=== PATIENT | female | born 1935 | race Caucasian/White ===

== ENCOUNTER 2016-02-16 09:26 | Inpatient (IN) | payer MEDICARE, OTHER ==
[~2016-02-16] VITALS: Ht 162.6 cm; Wt 64.4 kg
[~2016-02-16 09:26] MED LIST: ASPI81TA85 PO; BIOT50004 PO; FISH1000 PO; IBUP600T26 PO; MULT1TAB10 PO; OMEP20CA3 PO; PROBCAP4 PO; SPIR12.9 INH; VITATAB21 PO
[2016-02-16 10:42] LABS: BASO # 0.1 K/mm3 (0.0-0.2); BASO % 0.3 % (0.0-1.0); EOS # 0.1 K/mm3 (0.0-0.50); EOS % 0.5 % (0.0-3.0); LARGE UNSTAINED CELL # 0.1 K/mm3 (0.0-0.4); LARGE UNSTAINED CELL % 0.6 % (0.0-4.0); LYMPH # 0.7 K/mm3 (1.5-4.5); LYMPH % 2.6 % (24.0-44.0); MEAN CORPUSCULAR HGB CONC 33.1 g/dl (32.0-36.5); MEAN CORPUSCULAR VOLUME 93.6 fl (80.0-96.0); MONO # 1.1 K/mm3 (0.0-0.8); MONO % 5.3 % (0.0-5.0); NEUTROPHILS # 19.1 K/mm3 (1.8-7.7); NEUTROPHILS % 90.6 % (36.0-66.0); PLATELET COUNT, AUTOMATED 278 k/mm3 (150-450); RED CELL DISTRIBUTION WIDTH 13.1 % (11.5-14.5); WHITE BLOOD COUNT 21.1 K/mm3 (4.0-10.0)
[2016-02-16 10:57] LABS: ANION GAP 10 MEQ/L (8-16); BLOOD UREA NITROGEN 7 MG/DL (7-18); CALCIUM LEVEL 8.6 MG/DL (8.8-10.2); CARBON DIOXIDE LEVEL 25 MEQ/L (21-32); CHLORIDE LEVEL 105 MEQ/L (98-107); GLOMERULAR FILTRATION RATE > 60.0 (>39); GLUCOSE, FASTING 90 MG/DL (83-110); POTASSIUM SERUM 3.3 MEQ/L (3.5-5.1); SODIUM LEVEL 140 MEQ/L (136-145)
[2016-02-16] MEDS ORDERED: POTASSIUM CHLORIDE 10 MEQ SR TABLET As Ordered ONE (13:27)
[2016-02-16] MEDS ORDERED: IPRATROPIUM 0.5MG/ALBUTEROL 2.5MG INH SOL UD 3ML (DUONEB)(J7620) NEB PRN (16:30)
[2016-02-16] MEDS ORDERED: D5W/0.45% SODIUM CHLORIDE 1,000 ML IV SCH (16:30)
[2016-02-16] MEDS ORDERED: ACETAMINOPHEN TAB 650MG DOSE (2X325MG) PO PRN (16:30)
[2016-02-16] MEDS ORDERED: ONDANSETRON 4MG/2ML VIAL (J2405) IV PRN (16:30)
[2016-02-16] MEDS ORDERED: MORPHINE 2 MG/ML 1ML SYRINGE IV PRN (16:30)
[2016-02-16] MEDS ORDERED: ACETAMINOPHEN 650 MG SUPP PR PRN (16:30)
[2016-02-16] MEDS ORDERED: KCL 20MEQ IN D5/0.45NS 1000ML 1,000 ML IV SCH (16:45)
[2016-02-16 16:59] LABS: ALBUMIN 3.2 GM/DL (3.2-5.2); ALBUMIN/GLOBULIN RATIO 1.03 (1.00-1.93); ALKALINE PHOSPHATASE 55 U/L (45-117); ALT/SGPT 16 U/L (12-78); AST/SGOT 12 U/L (15-37); BILIRUBIN,DIRECT 0.1 MG/DL (0.0-0.2); BILIRUBIN,TOTAL 0.4 MG/DL (0.2-1.0); TOTAL PROTEIN 6.3 GM/DL (6.4-8.2)
--- NOTE | 2016-02-16 17:28 | HPE ---
DATE OF ADMISSION: 02/16/2016 TIME PATIENT WAS SEEN: 1500 hours. PRIMARY CARE PROVIDER: Dr. Howell. CHIEF COMPLAINT: Diarrhea and abdominal pain. HISTORY OF THE PRESENT ILLNESS: A 80-year-old female with a past medical history of diverticulitis, chronic obstructive pulmonary disease (COPD), emphysema, hiatal hernia and multiple drug allergies, presented with abdominal pain and diarrhea, started 3 days ago. Per patient, she was initially on Cefir for a sinus infection about 20 days ago; however, 6 days into the antibiotic, the patient developed diarrhea about six times a day, and she was diagnosed with Clostridium difficile (C diff) colitis and, therefore, was placed on Flagyl for the next 10 days. The patient's Flagyl was stopped early due to patient has metallic taste in the mouth, and it was stopped roughly 4 days ago. About 2 days after Flagyl was stopped, the diarrhea came back and it was worse than before. Per patient, whatever she eats or drinks, would come out immediately and she has nausea but no vomiting and there was no blood in the stool. In addition, she also has lower abdominal pain, which was sharp and dull and she rated it as a 6/10 at times and it comes and goes. Currently, the pain is only 0/10. The patient also admits to chills. Denies any recent traveling or sick contact. Denies any chest pain, trouble breathing, any problem with urination. ALLERGIES: The patient has multiple allergies including ERYTHROMYCIN which gives her hives and tongue swelling and itching, NITRATE gives her hives, swelling and itching, NITROFURANTOIN gives her hives, itching and swelling and also PENICILLIN gives her hives, itching and swelling, PENICILLIN CROSS REACTORS - also hives, itching and swelling, SULFA DRUGS gives her hives, CIPROFLOXACIN gives her hives. Currently, the patient would like to add Cefir to her side effect list. However, her reaction was diarrhea which was more likely to be secondary to Clostridium difficile. HOME MEDICATIONS: - aspirin 81 mg one tablet by mouth daily - Biotin 5000 mcg one tablet by mouth daily - fish oil 1000 mg one tablet by mouth daily - ibuprofen 600 mg one tablet by mouth every 8 hours as needed - probiotic one tablet by mouth daily - multivitamin one tablet by mouth daily - omeprazole 20 mg one tablet by mouth daily - Spiriva two inhalations daily - vitamin C plus one tablet by mouth daily PAST MEDICAL HISTORY: 1. Diverticulitis, diverticulosis. 2. Chronic obstructive pulmonary disease (COPD), emphysema. 3. Hiatal hernia. 4. Chronic pain. 5. Vitamin deficiency. PAST SURGICAL HISTORY: 1. Right-sided hip arthroplasty. 2. Cholecystectomy. 3. Cataract. 4. Dilatation and curettage (D and C). SOCIAL HISTORY: The patient lives at home alone, and she exercises regularly, does not smoke, drink or use any drugs. FAMILY HISTORY: The patient's brother had prostate cancer and also from heart disease. REVIEW OF SYSTEMS: GENERAL: The patient lost 5 pounds over 2 days due to diarrhea. Denies any sick contact or any recent traveling. Admits to chills. Denies any fever. HEENT: Denies any changes with vision, smell, hearing or taste. Denies any trouble swallowing or any cough. CARDIOVASCULAR: Denies any chest pain, trouble breathing. LUNGS: The patient does have COPD and denies any trouble breathing currently. GASTROINTESTINAL: Denies any vomiting. Admits to nausea and abdominal pain. Admits to diarrhea about ten times per day. MUSCULOSKELETAL: Denies any pain anywhere. HEMATOLOGY/ONCOLOGY: Denies any bruising or bleeding anywhere. ENDOCRINE: Admits to chills. Denies any excessive heat. PSYCH: Denies any depression. SKIN: Denies any rash, ulcerations or nodules. NEUROLOGIC: Denies any weakness on any one side of the body. Denies any change in sensation. PHYSICAL EXAMINATION: VITAL SIGNS: Blood pressure 134/71, pulse 82, respirations 18, temperature 99.2. Oxygen was saturating at 99% on room air. Weight was 60 kg. Height was 162 cm. GENERAL: The patient is a thin looking elderly female who was more energetic for her age, alert, awake, oriented times three, does not appear to be in distress, resting comfortably in bed with the head elevated at 30 degrees. HEENT: Normocephalic, atraumatic. Extraocular motor intact. Mucosa moist. NECK: Supple. No neck lymphadenopathy. CARDIOVASCULAR: Regular rate and rhythm. S1, S2. No murmurs, rubs or gallops. LUNGS: Clear to auscultation bilaterally. No wheezing, rales, or rhonchi. ABDOMEN: Positive bowel sounds, soft, nontender, nondistended. No peritoneal signs. No ecchymosis. EXTREMITIES: No edema, clubbing or cyanosis. SKIN: Warm and dry. NEUROLOGICAL: Cranial nerves II-XII intact. No focal neurologic deficit. LABORATORY DATA: WBC 21.1, hemoglobin 13.4, hematocrit 40.5 with MCV of 93.6 and platelet count of 278. Sodium 140, potassium 3.3, low, chloride 105, bicarbonate 25, BUN 7, creatinine 0.7, GFR greater than 60, fasting glucose was 90 and lactic acid 0.7, calcium was 8.6. Liver panel is currently pending. Magnesium level is pending. Blood culture pending . ASSESSMENT AND PLAN: A 80-year-old female with a past medical history of diverticulitis, chronic obstructive pulmonary disease (COPD), emphysema, hiatal hernia, chronic pain with multivitamin deficiency and multiple drug allergies, presented with: 1. Severe diarrhea, likely secondary to Clostridium difficile colitis. The patient's GI panel is positive for Clostridium difficile A and B. The patient also has leukocytosis with WBC of 21.1 and she has been having diarrhea about 10 times per day. The patient has been started on oral vancomycin in the emergency room. Will continue the patient on vancomycin 125 mg by mouth every 6 hours. Will also provide the patient with probiotic. Continue IV fluid with potassium (K) 20 mEq in D5 and a half normal saline at a rate of 60 mL an hour. Also, will place the patient on a clear liquid diet due to patient has no vomiting and only has some nausea. Will continue Zofran and home proton pump inhibitor (PPI) and continue to monitor the patient. 2. Thrush. The patient's tongue does appear to have thrush. Will continue mouthwash. 3. History of diverticulitis. The patient's abdominal exam is benign. Therefore, no imaging needed for now. If, however, serial abdominal exam shows severe pain, the patient may be warranted to have imaging. 4. Chronic obstructive pulmonary disease, emphysema. Continue Spiriva and DuoNebs. 5. Hiatal hernia. Continue home proton pump inhibitor. 6. Deep vein thrombosis (DVT) prophylaxis. On Lovenox 30 mg subcutaneously daily. DISPOSITION: The patient has a relapse from Clostridium difficile colitis. The patient was on Flagyl outpatient; however, she stated that she stopped a few days earlier. In addition, the patient's diarrhea is worsening this time. Will continue oral vancomycin for now. If the patient's symptoms are not well controlled, possibly consider adding Flagyl which did seem to help her several days ago. The patient has been discussed with attending doctor, Dr. Deluna. My preceptor for this patient encounter was Dr. Deluna. The preceptor was physically present in the building during the encounter and was fully available. As needed, all aspects of the patient interview, examination, medical decision making process, and medical care plan development were reviewed and approved by the preceptor. The preceptor is aware and concurs with the plan as stated in the body of this note and will attest to such by his/her co-signature. YUNIOR
[2016-02-16] MEDS: VANCOMYCIN ORAL SOL 250MG/5ML ORAL SYRINGE PO SCH (18:00)
--- NOTE | 2016-02-16 18:36 | EDDOCDS ---
Physician Documentation [facility] Name: Briseyda Gallegos Age: 80 yrs Sex: Female : 1935 Arrival Date: 02/16/2016 Time: 09:26 Bed 10 Private MD: Samuel Howell MD Disposition: 02/15 14:59 I have independently interviewed and examined the patient, and I agree with the sd1 investigation, diagnosis and treatment plan as documented by the Resident. Disposition: 02/16/16 15:11 Hospitalization ordered by Akiko Deluna for Inpatient Admission. Preliminary diagnosis is Enterocolitis due to Clostridium difficile. - Bed requested for 4 [place]. - Status is Inpatient Admission. ml6 - Condition is Stable. - Problem is new. - Symptoms are unchanged. Historical: - Allergies: Ciprofloxacin (night huerta and anxiety); Erythromycin; Macrobid; PENICILLINS; SULFA (SULFONAMIDES); - Home Meds: 1. aspirin 81 mg Oral grps 1 tab once daily (Last dose: 02/14/2016) 2. biotin oral daily (Last dose: 02/14/2016) 3. Fish Oil Oral daily (Last dose: 02/14/2016) 4. Motrin Oral 600 mg as needed 5. multivitamin Oral tab 1 tab daily (Last dose: 02/14/2016) 6. omeprazole 20 mg Oral cpDR 1 cap once daily (Last dose: 02/14/2016) 7. Spiriva with HandiHaler 18 mcg Inhl CpDv 1 cap once daily (Last dose: 02/14/2016) 8. Vitamin C Oral daily (Last dose: 02/14/2016) 9. Probiotic oral daily (Last dose: 02/14/2016) - PMHx: COPD; Emphysema; Hiatal Hernia; Diverticulosis; Diverticulitis; - PSHx: Hip Arthroplasty, Right; Cholecystectomy; Cataract Surgery- Right; D & C; - Social history: Smoking status: Patient states former smoker of tobacco. No barriers to communication noted, The patient speaks fluent Portuguese, Speaks appropriately for age. - Family history: Not pertinent. - : The pt / caregiver states he / she is not on anticoagulants. Home medication list is obtained from the patient, [place] import data. - Exposure Risk Screening:: None identified. Vital Signs: 09:28 BP 134 / 71; Pulse 82; Resp 18; Temp 99.2(O); Pulse Ox 99% on R/A; Weight 60.78 kg / elp 134 lbs (R); Height 5 ft. 4 in. (162.56 cm); Pain 6/10; 18:35 BP 125 / 74; Pulse 77; Resp 16; Temp 98.2(O); Pulse Ox 97% on R/A; Pain 0/10; ml6 09:28 Body Mass Index 23.00 (60.78 kg, 162.56 cm) elp MDM: 10:07 NS 0.9% 1000 ml IV at 250 mL/hr continuous ordered. bs6 10:07 Undress patient appropriately for examination ordered. bs6 10:08 Basic Metabolic Profile Ordered. EDMS 10:08 CBC with Diff Ordered. EDMS 10:09 GASTROINTESTINAL (GI) PANEL Ordered. EDMS 10:16 Financial registration complete. lg 10:22 ED course: 80 yo female presents S/P cefdinir for sinusitis and flagyl for presumed sd1 enteritis resulting from c/o generalized abdominal pain very mild but intermittently increases and associated liquidy stool with every po intake no vomiting exam patient appears well in no distress abdomen soft nontender decreased BS plan check stool, lytes, hydrate consider imaging based on labs ddx: cdiff, gastroenteritits, medication intolerance, diverticulitis. 10:56 [facility] [place] was scanned into varinode and attached to record. lg 11:49 Basic Metabolic Profile Reviewed. sd1 11:49 CBC with Diff Reviewed. sd1 11:50 Stool samples ordered. sd1 11:50 -Blood Culture (Adults Only), peripheral from different site, or from device/port/PICC sd1 etc. if present ordered. 11:51 Lactic Acid (Squires tube on ice) Ordered. EDMS 11:51 -Blood Culture Ordered. EDMS 11:52 -Blood Culture (Adults Only), peripheral from different site, or from device/port/PICC deg etc. if present complete. 11:53 BLOOD CULTURES Ordered. EDMS 13:22 Potassium Chloride Extended Release Tablet 40 mEq PO once ordered. sd1 15:12 vancomycin 125 mg PO once ordered. bs6 15:25 vancomycin 125 mg PO once ordered. ml6 15:40 vancomycin 125 mg PO once ordered. ml6 16:13 Admission / Observation Status ordered. EDMS 16:30 PHYSICAL THERAPY EVAL & TREAT ordered. EDMS 16:30 CLEAR LIQUIDS DIET ordered. EDMS Administered Medications: 10:08 Drug: NS 0.9% 1000 ml [sodium chloride 0.9 % intravenous solution] Route: IV; Rate: 250 ml6 mL/hr; Site: left antecubital; 13:26 Drug: Potassium Chloride 40 mEq [potassium chloride ER 10 mEq tablet,extended release ml6 (4 tabs)] Route: PO; 17:00 Drug: vancomycin 125 mg {Note: delay in medication coming from pharmacy.} Route: PO; ml6 Signatures: Dispatcher [employer] EDMS Mary Kay Gee MD MD sd1 Bbea Coronado, Bilingual Speech Therapist Unit deg Benjamín Nance, Rodney Reg lg Graciela Dawson,RN RN kr3 Marcos Andres, RN RN ml6 Anna Ferrari DO DO bs6 Jerrica Enamorado, JARAD RN lmg The chart was reviewed and I authenticate all verbal orders and agree with the evaluation and treatment provided.Corrections: (The following items were deleted from the chart) 10:09 10:08 GASTROINTESTINAL (GI) PANEL+TIMI ordered. EDMS EDMS 16:30 10:08 NOTHING BY MOUTH+DIET ordered. EDMS EDMS 16:40 16:27 LIVER PROFILE ordered. EDMS EDMS 16:40 16:27 MAGNESIUM LEVEL ordered. EDMS EDMS Attachments: 10:56 [facility] Payment Agreement lg MTDD
--- NOTE | 2016-02-16 18:36 | EDDOCDS ---
Nurse's Notes [facility] [employer] Name: Briseyda Gallegos Age: 80 yrs Sex: Female : 1935 Arrival Date: 02/16/2016 Time: 09:26 Bed 10 Private MD: Samuel Howell MD Diagnosis: Enterocolitis due to Clostridium difficile Presentation: 02/15 09:32 Presenting complaint: Patient states: history of diverticulosis and is having abdominal kr3 pain and inability to eat or drink since Saturday. Reports earlier was on 2 different antibiotics for sinus infection and thinks may have started a problem and than food intake over Jenifer did not help with problem. Adult Sepsis Screening: The patient does not have new or worsening altered mentation. Patient's respiratory rate is less than 22. Systolic blood pressure is greater than 100. Patient has a qSOFA score of 0- Negative Sepsis Screen. Suicide/Homicide risk assessment- the patient denies having any suicidal and/or homicidal ideations and does not present with any other emotional, behavioral or mental health complaints. Status: Patient is not a nutrition services aide or dependent. Transition of care: patient was not received from another setting of care. 09:32 Acuity: LUIS Level 3 kr3 09:32 Method Of Arrival: Walkin/Carried/Asstd kr3 Triage Assessment: 09:38 General: Appears in no apparent distress, comfortable, Behavior is cooperative. Pain: kr3 Location: abdomen Pain currently is 6 out of 10 on a pain scale. Is intermittent. GI: Reports cramping, nausea. Derm: Skin is normal. Historical: - Allergies: Ciprofloxacin (night huerta and anxiety); Erythromycin; Macrobid; PENICILLINS; SULFA (SULFONAMIDES); - Home Meds: 1. aspirin 81 mg Oral grps 1 tab once daily (Last dose: 02/14/2016) 2. biotin oral daily (Last dose: 02/14/2016) 3. Fish Oil Oral daily (Last dose: 02/14/2016) 4. Motrin Oral 600 mg as needed 5. multivitamin Oral tab 1 tab daily (Last dose: 02/14/2016) 6. omeprazole 20 mg Oral cpDR 1 cap once daily (Last dose: 02/14/2016) 7. Spiriva with HandiHaler 18 mcg Inhl CpDv 1 cap once daily (Last dose: 02/14/2016) 8. Vitamin C Oral daily (Last dose: 02/14/2016) 9. Probiotic oral daily (Last dose: 02/14/2016) - PMHx: COPD; Emphysema; Hiatal Hernia; Diverticulosis; Diverticulitis; - PSHx: Hip Arthroplasty, Right; Cholecystectomy; Cataract Surgery- Right; D & C; - Social history: Smoking status: Patient states former smoker of tobacco. No barriers to communication noted, The patient speaks fluent Macedonian, Speaks appropriately for age. - Family history: Not pertinent. - : The pt / caregiver states he / she is not on anticoagulants. Home medication list is obtained from the patient, My [employer] import data. - Exposure Risk Screening:: None identified. Screenin:06 Screening information is obtained from the patient. Fall risk: No risks identified. ml6 Assistance ADL's: requires no assistance with activities of daily living. Abuse/DV Screen: The patient / caregiver reports he/she is: not in a situation that causes fear, pain or injury. Nutritional screening: No deficits noted. Advance Directives: Currently, there is no health care proxy. home support is adequate. Assessment: 09:51 General: Appears in no apparent distress. Pain: Denies pain. Neurological: No deficits ml6 noted. Level of Consciousness is awake, alert, Oriented to person, place, time, Efficiency Engineer are equal bilaterally Moves all extremities. Full function Gait is steady, Speech is normal. Cardiovascular: No deficits noted. Capillary refill < 3 seconds is brisk in bilateral fingers toes Heart tones S1 S2 present. Respiratory: No deficits noted. Airway is patent Respiratory effort is even, unlabored, Respiratory pattern is regular, symmetrical, Breath sounds are clear bilaterally. GI: Abdomen is flat, non- distended Bowel sounds present X 4 quads. Abd is soft and non tender X 4 quads. 11:00 Reassessment: Patient appears in no apparent distress at this time. Patient denies pain ml6 at this time. Patient states feeling better. Patient states symptoms have improved. victor hugo denies pain, patient states that she is feeling better. 12:00 Reassessment: Patient appears in no apparent distress at this time. Patient denies pain ml6 at this time. Patient states feeling better. Patient states symptoms have improved. no changes from previous assessment. 13:00 General: Appears in no apparent distress, comfortable. Pain: Denies pain. GI: Abdomen ml6 is flat, non- distended Bowel sounds present X 4 quads. Abd is soft and non tender X 4 quads. Reports diarrhea. 14:00 Reassessment: Patient appears in no apparent distress at this time. Patient denies pain ml6 at this time. Patient states feeling better. Patient states symptoms have improved. no changes from previous assessment. 15:00 General: Appears in no apparent distress, comfortable. Pain: Denies pain. Neurological: ml6 No deficits noted. Level of Consciousness is awake, alert, Oriented to person, place, time, Efficiency Engineer are equal bilaterally Moves all extremities. Full function Gait is steady, Speech is normal. Cardiovascular: No deficits noted. Capillary refill < 3 seconds is brisk Heart tones S1 S2 present. Respiratory: No deficits noted. Airway is patent Respiratory effort is even, unlabored, Respiratory pattern is regular, symmetrical, Breath sounds are clear bilaterally. GI: No deficits noted. 16:00 Reassessment: Patient appears in no apparent distress at this time. Patient denies pain ml6 at this time. Patient states feeling better. Patient states symptoms have improved. PATIENT SLEEPING SOUNDLY RESP UNLABORED. 17:00 Reassessment: Patient appears in no apparent distress at this time. Patient denies pain ml6 at this time. Patient states feeling better. Patient states symptoms have improved. 18:33 General: Appears in no apparent distress, comfortable. Pain: Denies pain. Neurological: ml6 No deficits noted. Level of Consciousness is awake, alert, Oriented to person, place, time, Efficiency Engineer are equal bilaterally Moves all extremities. Full function Gait is steady. Cardiovascular: No deficits noted. Respiratory: No deficits noted. Vital Signs: 09:28 BP 134 / 71; Pulse 82; Resp 18; Temp 99.2(O); Pulse Ox 99% on R/A; Weight 60.78 kg (R); elp Height 5 ft. 4 in. (162.56 cm); Pain 6/10; 18:35 BP 125 / 74; Pulse 77; Resp 16; Temp 98.2(O); Pulse Ox 97% on R/A; Pain 0/10; ml6 09:28 Body Mass Index 23.00 (60.78 kg, 162.56 cm) elp Vitals: 09:28 Log In Time: February 16, 2016 at 09:23. elp ED Course: 09:27 Patient visited by Suly Ruiz PCA. elp 09:27 Samuel Howell is Private Physician. elp 09:27 Patient moved to Waiting elp 09:29 Patient visited by Suly Ruiz PCA. elp 09:29 Patient moved to Pre RCE elp 09:35 Triage Initiated kr3 09:39 Patient moved to 10 kr3 09:44 [facility] bs[facility] 09:44 Mary Kay Gee MD is Attending Physician. bs6 09:48 Patient visited by Anna Ferrari DO. bs6 09:48 Patient visited by Anna Ferrari DO. bs6 10:07 Inserted peripheral IV: 18gauge IV in left antecubital area and blood collected. ml6 Patient tolerated the procedure well. Labs drawn. (by ED staff). Sent per order to lab. 10:09 Patient visited by Marcos Andres RN. ml6 10:56 [facility] Payment Agreement was scanned into [employer] and attached to record. lg 11:04 Patient visited by Marcos Andres RN. ml6 12:11 Patient visited by Marcos Andres RN. ml6 12:46 Patient visited by Marcos Andres, JARAD. ml6 13:26 Patient visited by Marcos nAdres, JARAD. ml6 13:55 Patient visited by Marcos Andres, JARAD. ml6 14:36 Patient visited by Marcos Andres RN. ml6 14:57 Patient visited by Marcos Andres, JARAD. ml6 15:11 Akiko Deluna is Hospitalizing Provider. bs6 18:32 The patient / caregiver is instructed regarding the plan of care and ED course. ml6 18:32 No procedures done that require assistance. ml6 Administered Medications: 10:08 Drug: NS 0.9% 1000 ml [sodium chloride 0.9 % intravenous solution] Route: IV; Rate: 250 ml6 mL/hr; Site: left antecubital; 13:26 Drug: Potassium Chloride 40 mEq [potassium chloride ER 10 mEq tablet,extended release ml6 (4 tabs)] Route: PO; 17:00 Drug: vancomycin 125 mg {Note: delay in medication coming from pharmacy.} Route: PO; ml6 Order Results: Lab Order: Basic Metabolic Profile; SPEC'M 02/16/16 10:35 Test: GLUCOSE, FASTING; Value: 90; Range: 83-110; Units: MG/DL; Status: F Test: BLOOD UREA NITROGEN; Value: 7; Range: 7-18; Units: MG/DL; Status: F Test: CREATININE FOR GFR; Value: 0.70; Range: 0.55-1.02; Units: MG/DL; Status: F Test: GLOMERULAR FILTRATION RATE; Value: > 60.0; Range: >39; Status: F Test: SODIUM LEVEL; Value: 140; Range: 136-145; Units: MEQ/L; Status: F Test: POTASSIUM SERUM; Value: 3.3; Range: 3.5-5.1; Abnormal: Below low normal; Units: MEQ/L; Status: F Test: CHLORIDE LEVEL; Value: 105; Range: 98-107; Units: MEQ/L; Status: F Test: CARBON DIOXIDE LEVEL; Value: 25; Range: 21-32; Units: MEQ/L; Status: F Test: ANION GAP; Value: 10; Range: 8-16; Units: MEQ/L; Status: F Test: CALCIUM LEVEL; Value: 8.6; Range: 8.8-10.2; Abnormal: Below low normal; Units: MG/DL; Status: F Test Note: ; Units are mL/min/1.73 m2 Chronic Kidney Disease Staging per NKF: Stage I & II GFR >=60 Normal to Mildly Decreased Stage III GFR 30-59 Moderately Decreased Stage IV GFR 15-29 Severely Decreased Stage V GFR <15 Very Little GFR Left ESRD GFR <15 on COMPONENT INSPECTOR Lab Order: CBC with Diff; SPEC'M 02/16/16 10:35 Test: WHITE BLOOD COUNT; Value: 21.1; Range: 4.0-10.0; Abnormal: Above high normal; Units: K/mm3; Status: F Test: RED BLOOD COUNT; Value: 4.33; Range: 4.00-5.40; Units: M/mm3; Status: F Test: HEMOGLOBIN; Value: 13.4; Range: 12.0-16.0; Units: g/dl; Status: F Test: HEMATOCRIT; Value: 40.5; Range: 36.0-47.0; Units: %; Status: F Test: MEAN CORPUSCULAR VOLUME; Value: 93.6; Range: 80.0-96.0; Units: fl; Status: F Test: MEAN CORPUSCULAR HEMOGLOBIN; Value: 31.0; Range: 27.0-33.0; Units: pg; Status: F Test: MEAN CORPUSCULAR HGB CONC; Value: 33.1; Range: 32.0-36.5; Units: g/dl; Status: F Test: RED CELL DISTRIBUTION WIDTH; Value: 13.1; Range: 11.5-14.5; Units: %; Status: F Test: PLATELET COUNT, AUTOMATED; Value: 278; Range: 150-450; Units: k/mm3; Status: F Test: NEUTROPHILS %; Value: 90.6; Range: 36.0-66.0; Abnormal: Above high normal; Units: %; Status: F Test: LYMPH %; Value: 2.6; Range: 24.0-44.0; Abnormal: Below low normal; Units: %; Status: F Test: MONO %; Value: 5.3; Range: 0.0-5.0; Abnormal: Above high normal; Units: %; Status: F Test: EOS %; Value: 0.5; Range: 0.0-3.0; Units: %; Status: F Test: BASO %; Value: 0.3; Range: 0.0-1.0; Units: %; Status: F Test: LARGE UNSTAINED CELL %; Value: 0.6; Range: 0.0-4.0; Units: %; Status: F Test: NEUTROPHILS #; Value: 19.1; Range: 1.8-7.7; Abnormal: Above high normal; Units: K/mm3; Status: F Test: LYMPH #; Value: 0.7; Range: 1.5-4.5; Abnormal: Below low normal; Units: K/mm3; Status: F Test: MONO #; Value: 1.1; Range: 0.0-0.8; Abnormal: Above high normal; Units: K/mm3; Status: F Test: EOS #; Value: 0.1; Range: 0.0-0.50; Units: K/mm3; Status: F Test: BASO #; Value: 0.1; Range: 0.0-0.2; Units: K/mm3; Status: F Test: LARGE UNSTAINED CELL #; Value: 0.1; Range: 0.0-0.4; Units: K/mm3; Status: F Lab Order: GASTROINTESTINAL (GI) PANEL; SPEC'M 02/16/16 10:35 Test: GASTROINTESTINAL (GI) PANEL; Value: GI PANEL RESULT POSITIVE by PCR; Status: F Test: GASTROINTESTINAL (GI) PANEL; Value: Comments:; Status: F Test: GASTROINTESTINAL (GI) PANEL; Value: ORGANISM 1: CLOSTRIDIUM DIFFICILE A/B; Status: F Test: GASTROINTESTINAL (GI) PANEL; Value: CLOSTRIDIUM DIFFICILE A/B; Status: F Test: GASTROINTESTINAL (GI) PANEL; Value: CONSISTENCY OF STOOL UNFORMED stool.; Status: F Test: GASTROINTESTINAL (GI) PANEL; Value: CONSISTENCY COMMENT 1 Performing testing on formed stool from patients who; Status: F Test: GASTROINTESTINAL (GI) PANEL; Value: CONSISTENCY COMMENT 2 do not have CDI symptoms detects asymptomatic colonized; Status: F Test: GASTROINTESTINAL (GI) PANEL; Value: CONSISTENCY COMMENT 3 patients (up to 30% of hospitalized patients are; Status: F Test: GASTROINTESTINAL (GI) PANEL; Value: CONSISTENCY COMMENT 4 colonized with C. difficile). Patients with false; Status: F Test: GASTROINTESTINAL (GI) PANEL; Value: CONSISTENCY COMMENT 5 positive results may be given unnecessary treatment,; Status: F Test: GASTROINTESTINAL (GI) PANEL; Value: CONSISTENCY COMMENT 6 placed on contact isolation, and be at increased risk; Status: F Test: GASTROINTESTINAL (GI) PANEL; Value: CONSISTENCY COMMENT 7 of vancomycin resistant enterococci.; Status: F Test Note: ; This Gastrointestinal PCR Panel detects the following bacteria, parasites and viruses: Campylobacter (jejuni, coli and upsaliensis), Clostridium difficile (toxin A/B), Plesiomonas shigelloides, Salmonella, Yersinia enterocolitica, Vibrio (parahaemolyticus, vulnificus and cholerae), Vibrio clolerae, Enteroaggregative E. coli (EAEC), Enteropathogenis E. coli (EPEC), Enterotoxigenic E. coli (ETEC) it/st, Shiga-like producing E. coli (STEC) stx1/stc2, E.coli O157, Shigella/Enteroinvasive E. coli (EIEC), Cryptosporidium, Cyclospora cayetanensis, Entamoeba histolytica, Giardia lamblia, Adenovirus F 40/41, Astrovirus, Norovirus GI/GII, Rotavirus A and Sapovirus (I, II, IV, V). Lab Order: Lactic Acid (Squires tube on ice); [facility] 02/16/16 13:22 Test: LACTIC ACID LEVEL, LACTATE; Value: 0.7; Range: 0.4-2.0; Units: MMOL/L; Status: F Lab Order: LIVER PROFILE; [facility] 02/16/16 10:35 Test: AST/SGOT; Value: 12; Range: 15-37; Abnormal: Below low normal; Units: U/L; Status: F Test: ALT/SGPT; Value: 16; Range: 12-78; Units: U/L; Status: F Test: ALKALINE PHOSPHATASE; Value: 55; Range: 45-117; Units: U/L; Status: F Test: BILIRUBIN,TOTAL; Value: 0.4; Range: 0.2-1.0; Units: MG/DL; Status: F Test: BILIRUBIN,DIRECT; Value: 0.1; Range: 0.0-0.2; Units: MG/DL; Status: F Test: TOTAL PROTEIN; Value: 6.3; Range: 6.4-8.2; Abnormal: Below low normal; Units: GM/DL; Status: F Test: ALBUMIN; Value: 3.2; Range: 3.2-5.2; Units: GM/DL; Status: F Test: ALBUMIN/GLOBULIN RATIO; Value: 1.03; Range: 1.00-1.93; Status: F Lab Order: MAGNESIUM LEVEL; [facility] 02/16/16 10:35 Test: MAGNESIUM LEVEL; Value: 2.0; Range: 1.8-2.4; Units: MG/DL; Status: F Outcome: 15:11 Decision to Hospitalize by Provider. bs6 18:31 Discharge Assessment: patient administered narcotics - no. The following High Risk ml6 Discharge criteria are identified: None. Admitted to Med/Surg accompanied by tech, via stretcher, with chart. Condition: stable. Discharge instructions given to. No special radiology studies were completed. Property :Personal belongings accompany Pt. 18:35 Patient left the ED. ml6 Signatures: Jenelle Duenas, RN RN kcs Benjamín Nance, Reg Reg lg Graciela Dawson,RN RN kr3 Marcos Andres RN RN ml6 Suly Ruiz, LABOR RELATIONS CONSULTANT LABOR RELATIONS CONSULTANT elp Anna Ferrari, DO TYSON bs6 Corrections: (The following items were deleted from the chart) 15:25 15:24 vancomycin 125 mg PO kcs ml6 15:40 15:25 vancomycin 125 mg PO ml6 ml6 MTDD
[2016-02-16] MEDS ORDERED: IPRATROPIUM 0.5MG/ALBUTEROL 2.5MG INH SOL UD 3ML (DUONEB)(J7620) As Ordered ONE (20:40)
[2016-02-16] MEDS: IPRATROPIUM 0.5MG/ALBUTEROL 2.5MG INH SOL UD 3ML (DUONEB)(J7620) NEB SCH (20:49)
[2016-02-16] MEDS: NYSTATIN 500,000 U/5 ML SUSP UDC SS SCH (21:38)
[2016-02-16] MEDS: LACTOBACILLUS ACIDOPHILUS CAP (BACID) PO SCH (21:38)
[2016-02-16 22:00] VITALS: BP_SYST 128; BP_SYST 151; BP_DIAS 60; BP_DIAS 90
[2016-02-17] MEDS: VANCOMYCIN ORAL SOL 250MG/5ML ORAL SYRINGE PO SCH ×4 (00:15→18:03)
[2016-02-17 06:00] VITALS: BP 105/56
[2016-02-17 06:13] LABS: BASO % 0.2 % (0.0-1.0); EOS # 0.1 K/mm3 (0.0-0.50); EOS % 0.6 % (0.0-3.0); LARGE UNSTAINED CELL # 0.2 K/mm3 (0.0-0.4); LARGE UNSTAINED CELL % 1.3 % (0.0-4.0); LYMPH # 0.8 K/mm3 (1.5-4.5); MEAN CORPUSCULAR HEMOGLOBIN 31.4 pg (27.0-33.0); MEAN CORPUSCULAR HGB CONC 33.6 g/dl (32.0-36.5); MEAN CORPUSCULAR VOLUME 93.5 fl (80.0-96.0); MONO # 0.7 K/mm3 (0.0-0.8); MONO % 4.3 % (0.0-5.0); NEUTROPHILS # 13.5 K/mm3 (1.8-7.7); NEUTROPHILS % 88.6 % (36.0-66.0); PLATELET COUNT, AUTOMATED 263 k/mm3 (150-450); RED CELL DISTRIBUTION WIDTH 12.4 % (11.5-14.5); WHITE BLOOD COUNT 15.3 K/mm3 (4.0-10.0)
[2016-02-17 06:27] LABS: ANION GAP 10 MEQ/L (8-16); BLOOD UREA NITROGEN 5 MG/DL (7-18); CALCIUM LEVEL 8.2 MG/DL (8.8-10.2); CARBON DIOXIDE LEVEL 22 MEQ/L (21-32); CHLORIDE LEVEL 112 MEQ/L (98-107); GLOMERULAR FILTRATION RATE > 60.0 (>39); GLUCOSE, FASTING 100 MG/DL (83-110); POTASSIUM SERUM 3.4 MEQ/L (3.5-5.1); SODIUM LEVEL 144 MEQ/L (136-145)
[2016-02-17] MEDS: IPRATROPIUM 0.5MG/ALBUTEROL 2.5MG INH SOL UD 3ML (DUONEB)(J7620) NEB SCH ×2 (08:00→19:52)
[2016-02-17] MEDS: TIOTROPIUM INHALER/CAPSULE (SPIRIVA) INH SCH (08:00)
[2016-02-17] MEDS: ASPIRIN 81 MG ENTERIC TAB PO SCH (08:49)
[2016-02-17] MEDS: LACTOBACILLUS ACIDOPHILUS CAP (BACID) PO SCH ×2 (08:49→21:04)
[2016-02-17] MEDS: ENOXAPARIN 30 MG/0.3 ML SYR (J1650) SC SCH (08:50)
[2016-02-17] MEDS: NYSTATIN 500,000 U/5 ML SUSP UDC SS SCH ×2 (08:50→21:00)
[2016-02-17] MEDS: MULTIVITAMINS/MINERALS THERAP 1 TAB PO SCH (08:50)
[2016-02-17] MEDS ORDERED: PANTOPRAZOLE 40MG INJ (PROTONIX) (C9113) IV SCH (09:00)
[2016-02-17] MEDS ORDERED: KCL 10MEQ IN D5/0.45NS 1000ML 1,000 ML IV SCH (09:15)
--- NOTE | 2016-02-17 09:19 | IPNPDOC ---
Assessment/Plan Date Seen The patient was seen on 02/17/16. Problems Problems: (1) C. difficile colitis Status: Acute Response to Treatment: Stable Discussed With: Patient Problem Specific Plan: Monitor Clinically, Repeat Labs Problem Text: Pt failed outpt treatment with Flagyl in part she d/c the medication before completion. She is tolerating PO Vanco, monitor stool output. She is on IVF for hydration, once her stool frequency is notably improved, she should be able to be d/c home. Counseled on source of infection, treatment, risks assoc with infection, risk of infection and transmission to others. She is on IV protonix which should be d/c'd. -pantoprozol discontinued -possibly home 02/17 with PO vanc if stools improving, lytes stable, and good oral intake (2) Hypokalemia Status: Acute Response to Treatment: Stable Problem Specific Plan: Monitor Clinically, Repeat Labs Problem Text: Will adjust IVF today to compensate, enc K+ rich foods. (3) HHD (hypertensive heart disease) Status: Chronic Response to Treatment: Stable Problem Specific Plan: Monitor Clinically (4) COPD (chronic obstructive pulmonary disease) Status: Chronic Response to Treatment: Stable Problem Specific Plan: Monitor Clinically Plan / VTE VTE Prophylaxis Ordered?: Yes Plan Plan Text Attending attestation: I saw and evaluated the patient, and agree with the plan of care as discussed and documented above. Zachary North MD Subjective Review of Systems CC/HPI Pt feeling slightly better this morning. She had 6 stools yesterday, she has had 2-3 today. General: Denies: Fatigue Constitutional: Denies: Chills, Fever Pulmonary: Denies: Cough, Dyspnea Cardiovascular: Denies: Chest Pain, Palpitations Gastrointestinal: Reports: Diarrhea, Nausea, Denies: Vomiting Psych: Reports: Mood Normal Objective Physical Examination General Exam: Positive: Alert, No Acute Distress ENT Exam: Positive: Mucous membr. moist/pink Neck Exam: Positive: Supple Chest Exam: Positive: Clear to auscultation, Normal air movement Heart Exam: Positive: Normal S1, Normal S2, Rate Normal Abdomen Exam: Positive: Normal bowel sounds, Soft, Tenderness (mildly diffusely tender) Extremity Exam: Negative: Edema Vital Signs/I&O Vital Signs Date Time Temp Pulse Resp B/P Pulse Ox O2 Delivery O2 Flow Rate FiO2 02/17/16 06:00 97.2 67 16 105/56 93 02/16/16 22:00 Room Air I&O- Last 24 Hours up to 6 AM 02/17/16 06:00 Intake Total 300 ml Output Total 0 ml Balance 300 ml Laboratory Data Labs 24H Laboratory Tests 2 02/16/16 10:35: Aspartate Amino Transf (AST/SGOT) 12L, Alanine Aminotransferase (ALT/SGPT) 16, Alkaline Phosphatase 55, Total Bilirubin 0.4, Direct Bilirubin 0.1, Albumin 3.2 , Albumin/Globulin Ratio 1.03, Anion Gap 10, White Blood Count 21.1H, Red Blood Count 4.33, Hemoglobin 13.4, Hematocrit 40.5, Mean Corpuscular Volume 93.6, Mean Corpuscular Hemoglobin 31.0, Mean Corpuscular Hemoglobin Concent 33.1, Red Cell Distribution Width 13.1, Platelet Count 278, Neutrophils (%) (Auto) 90.6H, Lymphocytes (%) (Auto) 2.6L, Monocytes (%) (Auto) 5.3H, Eosinophils (%) (Auto) 0.5, Basophils (%) (Auto) 0.3, Neutrophils # (Auto) 19.1H, Lymphocytes # (Auto) 0.7L, Monocytes # (Auto) 1.1H, Eosinophils # (Auto) 0.1, Basophils # (Auto) 0.1 , Calcium Level 8.6L, Glomerular Filtration Rate > 60.0, Large Unclassified Cells # 0.1, Large Unclassified Cells % 0.6, Magnesium Level 2.0, Total Protein 6.3L 02/16/16 13:22: Lactic Acid Level 0.7 02/17/16 06:02: Anion Gap 10, White Blood Count 15.3H, Red Blood Count 4.00, Hemoglobin 12.6, Hematocrit 37.4, Mean Corpuscular Volume 93.5, Mean Corpuscular Hemoglobin 31.4 , Mean Corpuscular Hemoglobin Concent 33.6, Red Cell Distribution Width 12.4, Platelet Count 263, Neutrophils (%) (Auto) 88.6H, Lymphocytes (%) (Auto) 5.0L, Monocytes (%) (Auto) 4.3, Eosinophils (%) (Auto) 0.6, Basophils (%) (Auto) 0.2, Neutrophils # (Auto) 13.5H, Lymphocytes # (Auto) 0.8L, Monocytes # (Auto) 0.7, Eosinophils # (Auto) 0.1, Basophils # (Auto) 0.0, Calcium Level 8.2L, Glomerular Filtration Rate > 60.0, Large Unclassified Cells # 0.2, Large Unclassified Cells % 1.3, Magnesium Level 2.0, Blood Urea Nitrogen 5L, Creatinine 0.50L, Sodium Level 144, Potassium Level 3.4L, Chloride Level 112H, Carbon Dioxide Level 22 CBC/BMP Laboratory Tests 02/16/16 10:35 Red Blood Count 4.33, Mean Corpuscular Volume 93.6, Mean Corpuscular Hemoglobin 31.0, Mean Corpuscular Hemoglobin Concent 33.1, Red Cell Distribution Width 13.1 , Neutrophils (%) (Auto) 90.6 H, Lymphocytes (%) (Auto) 2.6 L, Monocytes (%) ( Auto) 5.3 H, Eosinophils (%) (Auto) 0.5, Basophils (%) (Auto) 0.3, Neutrophils # (Auto) 19.1 H, Lymphocytes # (Auto) 0.7 L, Monocytes # (Auto) 1.1 H, Eosinophils # (Auto) 0.1, Basophils # (Auto) 0.1 02/17/16 06:02 Red Blood Count 4.00, Mean Corpuscular Volume 93.5, Mean Corpuscular Hemoglobin 31.4, Mean Corpuscular Hemoglobin Concent 33.6, Red Cell Distribution Width 12.4 , Neutrophils (%) (Auto) 88.6 H, Lymphocytes (%) (Auto) 5.0 L, Monocytes (%) ( Auto) 4.3, Eosinophils (%) (Auto) 0.6, Basophils (%) (Auto) 0.2, Neutrophils # ( Auto) 13.5 H, Lymphocytes # (Auto) 0.8 L, Monocytes # (Auto) 0.7, Eosinophils # (Auto) 0.1, Basophils # (Auto) 0.0, Calcium Level 8.2 L Microbiology Microbiology 02/16/16 Blood Culture, Received Pending 02/16/16 Blood Culture, Received Pending 02/16/16 Gastrointestinal Tract Panel (PCR) - Final, Complete Clostridium Difficile A/B FLORIDA BADILLO PA-C Feb 17, 2016 09:19 ZACHARY NORTH MD Feb 17, 2016 16:48
[2016-02-17] MEDS ORDERED: KCL 40MEQ IN D5/0.45NS 1000ML 1,000 ML IV SCH (09:30)
[2016-02-17 10:55] VITALS: BP 104/58
[2016-02-17] MEDS ORDERED: POTASSIUM CHLORIDE 10 MEQ SR TABLET PO ONE (13:45)
[2016-02-17 14:00] VITALS: BP 116/58
[2016-02-17 22:00] VITALS: BP 115/60
[2016-02-18] MEDS: VANCOMYCIN ORAL SOL 250MG/5ML ORAL SYRINGE PO SCH ×4 (00:20→18:06)
[2016-02-18 06:00] VITALS: BP 115/60
[2016-02-18 06:29] LABS: BASO # 0.1 K/mm3 (0.0-0.2); BASO % 0.7 % (0.0-1.0); EOS # 0.2 K/mm3 (0.0-0.50); EOS % 1.4 % (0.0-3.0); LARGE UNSTAINED CELL # 0.2 K/mm3 (0.0-0.4); LARGE UNSTAINED CELL % 2.3 % (0.0-4.0); LYMPH # 1.5 K/mm3 (1.5-4.5); LYMPH % 12.3 % (24.0-44.0); MONO # 0.5 K/mm3 (0.0-0.8); MONO % 4.6 % (0.0-5.0); NEUTROPHILS # 8.4 K/mm3 (1.8-7.7); NEUTROPHILS % 78.8 % (36.0-66.0); PLATELET COUNT, AUTOMATED 272 k/mm3 (150-450); RED CELL DISTRIBUTION WIDTH 13.3 % (11.5-14.5); WHITE BLOOD COUNT 10.6 K/mm3 (4.0-10.0)
[2016-02-18 06:43] LABS: ANION GAP 11 MEQ/L (8-16); BLOOD UREA NITROGEN 4 MG/DL (7-18); CALCIUM LEVEL 8.5 MG/DL (8.8-10.2); CARBON DIOXIDE LEVEL 21 MEQ/L (21-32); CHLORIDE LEVEL 112 MEQ/L (98-107); CREATININE FOR GFR 0.55 MG/DL (0.55-1.02); GLOMERULAR FILTRATION RATE > 60.0 (>39); GLUCOSE, FASTING 112 MG/DL (83-110); POTASSIUM SERUM 3.5 MEQ/L (3.5-5.1); SODIUM LEVEL 144 MEQ/L (136-145)
[2016-02-18] MEDS: TIOTROPIUM INHALER/CAPSULE (SPIRIVA) INH SCH (08:55)
[2016-02-18] MEDS: IPRATROPIUM 0.5MG/ALBUTEROL 2.5MG INH SOL UD 3ML (DUONEB)(J7620) NEB SCH ×2 (08:55→19:40)
[2016-02-18] MEDS: MULTIVITAMINS/MINERALS THERAP 1 TAB PO SCH (10:18)
[2016-02-18] MEDS: LACTOBACILLUS ACIDOPHILUS CAP (BACID) PO SCH ×2 (10:18→21:55)
[2016-02-18] MEDS: NYSTATIN 500,000 U/5 ML SUSP UDC SS SCH ×2 (10:18→21:00)
[2016-02-18] MEDS: ASPIRIN 81 MG ENTERIC TAB PO SCH (10:18)
[2016-02-18] MEDS: ENOXAPARIN 30 MG/0.3 ML SYR (J1650) SC SCH (10:19)
[2016-02-18 14:00] VITALS: BP 140/50
--- NOTE | 2016-02-18 14:04 | IPNPDOC ---
Assessment/Plan Date Seen The patient was seen on 02/18/16. Problems Problems: (1) C. difficile colitis Status: Acute Response to Treatment: Stable Discussed With: Patient Problem Specific Plan: Monitor Clinically, Repeat Labs Problem Text: Pt failed outpt treatment with Flagyl in part she d/c the medication before completion. She is tolerating PO Vanco, monitor stool output. She is on IVF for hydration, once her stool frequency is notably improved, she should be able to be d/c home. Counseled on source of infection, treatment, risks assoc with infection, risk of infection and transmission to others. She is on IV protonix which should be d/c'd. -pantoprozol discontinued -possibly home 02/18 with PO vanc if stools improving, lytes stable, and good oral intake - PO vanc sent to pharmacy to ensure approval (2) Hypokalemia Status: Resolved Response to Treatment: Stable Problem Specific Plan: Monitor Clinically, Repeat Labs Problem Text: Enc K+ rich foods. Advance diet as tolerated. (3) HHD (hypertensive heart disease) Status: Chronic Response to Treatment: Stable Problem Specific Plan: Monitor Clinically (4) COPD (chronic obstructive pulmonary disease) Status: Chronic Response to Treatment: Stable Problem Specific Plan: Monitor Clinically Plan / VTE VTE Prophylaxis Ordered?: Yes Disposition Plan for discharge 02/18 if cont to improve and oral vanc covered by insurance. Subjective Review of Systems CC/HPI The patient is a 80-year-old female admitted with a reason for visit of C-Diff. Events since last encounter Pt had 8 stools yesterday and has had two already this morning. Cont to have cramping. Tolerating PO. No other concerns. Constitutional: Denies: Chills, Fever Pulmonary: Denies: Cough, Dyspnea Cardiovascular: Denies: Chest Pain, Palpitations Gastrointestinal: Reports: Abdominal Pain, Diarrhea, Denies: Nausea, Vomiting Other systems 10 pt ROS is otherwise negative Objective Physical Examination General Exam: Positive: Alert, No Acute Distress ENT Exam: Positive: Mucous membr. moist/pink Neck Exam: Positive: Supple Chest Exam: Positive: Clear to auscultation, Normal air movement Heart Exam: Positive: Normal S1, Normal S2, Rate Normal Abdomen Exam: Positive: Normal bowel sounds, Soft, Tenderness (mildly diffusely tender) Extremity Exam: Negative: Edema Vital Signs/I&O Vital Signs Date Time Temp Pulse Resp B/P Pulse Ox O2 Delivery O2 Flow Rate FiO2 02/18/16 06:00 96.7 68 17 115/60 94 Room Air I&O- Last 24 Hours up to 6 AM 02/18/16 06:00 Intake Total 1540 ml Output Total 400 ml Balance 1140 ml Laboratory Data Labs 24H Laboratory Tests 2 02/18/16 05:58: Anion Gap 11, White Blood Count 10.6H, Red Blood Count 4.25, Hemoglobin 13.2, Hematocrit 39.9, Mean Corpuscular Volume 94.0, Mean Corpuscular Hemoglobin 31.0 , Mean Corpuscular Hemoglobin Concent 33.0, Red Cell Distribution Width 13.3, Platelet Count 272, Neutrophils (%) (Auto) 78.8H, Lymphocytes (%) (Auto) 12.3L, Monocytes (%) (Auto) 4.6, Eosinophils (%) (Auto) 1.4, Basophils (%) (Auto) 0.7, Neutrophils # (Auto) 8.4H, Lymphocytes # (Auto) 1.5, Monocytes # (Auto) 0.5, Eosinophils # (Auto) 0.2, Basophils # (Auto) 0.1, Blood Urea Nitrogen 4L, Creatinine 0.55, Sodium Level 144, Potassium Level 3.5, Chloride Level 112H, Carbon Dioxide Level 21, Calcium Level 8.5L, Glomerular Filtration Rate > 60.0, Large Unclassified Cells # 0.2, Large Unclassified Cells % 2.3, Magnesium Level 2.0 CBC/BMP Laboratory Tests 02/18/16 05:58 Calcium Level 8.5 L, Red Blood Count 4.25, Mean Corpuscular Volume 94.0, Mean Corpuscular Hemoglobin 31.0, Mean Corpuscular Hemoglobin Concent 33.0, Red Cell Distribution Width 13.3, Neutrophils (%) (Auto) 78.8 H, Lymphocytes (%) (Auto) 12.3 L, Monocytes (%) (Auto) 4.6, Eosinophils (%) (Auto) 1.4, Basophils (%) ( Auto) 0.7, Neutrophils # (Auto) 8.4 H, Lymphocytes # (Auto) 1.5, Monocytes # ( Auto) 0.5, Eosinophils # (Auto) 0.2, Basophils # (Auto) 0.1 Microbiology Microbiology 02/16/16 Blood Culture - Preliminary, Resulted No Growth after 48 hours. All Specime... 02/16/16 Blood Culture - Preliminary, Resulted No Growth after 48 hours. All Specime... 02/16/16 Gastrointestinal Tract Panel (PCR) - Final, Complete Clostridium Difficile A/B KIRSTEN ALMANZA MD Feb 18, 2016 14:04
[2016-02-18] MEDS ORDERED: VANC1SUS PO (14:53)
--- NOTE | 2016-02-18 19:36 | EDDOCDS ---
Physician Documentation [facility] Name: Briseyda Gallegos Age: 80 yrs Sex: Female : 1935 Arrival Date: 02/16/2016 Time: 09:26 Bed 10 Private MD: Samuel Howell MD Disposition: 02/15 14:59 I have independently interviewed and examined the patient, and I agree with the sd1 investigation, diagnosis and treatment plan as documented by the Resident. Disposition: 02/16/16 15:11 Hospitalization ordered by Akiko Deluna for Inpatient Admission. Preliminary diagnosis is Enterocolitis due to Clostridium difficile. - Bed requested for [address] [place]. - Status is Inpatient Admission. ml6 - Condition is Stable. - Problem is new. - Symptoms are unchanged. Historical: - Allergies: Ciprofloxacin (night huerta and anxiety); Erythromycin; Macrobid; PENICILLINS; SULFA (SULFONAMIDES); - Home Meds: 1. aspirin 81 mg Oral grps 1 tab once daily (Last dose: 02/14/2016) 2. biotin oral daily (Last dose: 02/14/2016) 3. Fish Oil Oral daily (Last dose: 02/14/2016) 4. Motrin Oral 600 mg as needed 5. multivitamin Oral tab 1 tab daily (Last dose: 02/14/2016) 6. omeprazole 20 mg Oral cpDR 1 cap once daily (Last dose: 02/14/2016) 7. Spiriva with HandiHaler 18 mcg Inhl CpDv 1 cap once daily (Last dose: 02/14/2016) 8. Vitamin C Oral daily (Last dose: 02/14/2016) 9. Probiotic oral daily (Last dose: 02/14/2016) - PMHx: COPD; Emphysema; Hiatal Hernia; Diverticulosis; Diverticulitis; - PSHx: Hip Arthroplasty, Right; Cholecystectomy; Cataract Surgery- Right; D & C; - Social history: Smoking status: Patient states former smoker of tobacco. No barriers to communication noted, The patient speaks fluent Bulgarian, Speaks appropriately for age. - Family history: Not pertinent. - : The pt / caregiver states he / she is not on anticoagulants. Home medication list is obtained from the patient, [employer] import data. - Exposure Risk Screening:: None identified. Vital Signs: 09:28 BP 134 / 71; Pulse 82; Resp 18; Temp 99.2(O); Pulse Ox 99% on R/A; Weight 60.78 kg / elp 134 lbs (R); Height 5 ft. 4 in. (162.56 cm); Pain 6/10; 18:35 BP 125 / 74; Pulse 77; Resp 16; Temp 98.2(O); Pulse Ox 97% on R/A; Pain 0/10; ml6 09:28 Body Mass Index 23.00 (60.78 kg, 162.56 cm) elp MDM: 10:07 NS 0.9% 1000 ml IV at 250 mL/hr continuous ordered. bs6 10:07 Undress patient appropriately for examination ordered. bs6 10:08 Basic Metabolic Profile Ordered. EDMS 10:08 CBC with Diff Ordered. EDMS 10:09 GASTROINTESTINAL (GI) PANEL Ordered. EDMS 10:16 Financial registration complete. lg 10:22 ED course: 80 yo female presents S/P cefdinir for sinusitis and flagyl for presumed sd1 enteritis resulting from c/o generalized abdominal pain very mild but intermittently increases and associated liquidy stool with every po intake no vomiting exam patient appears well in no distress abdomen soft nontender decreased BS plan check stool, lytes, hydrate consider imaging based on labs ddx: cdiff, gastroenteritits, medication intolerance, diverticulitis. 10:56 [facility] Agreement was scanned into [employer] and attached to record. lg 11:49 Basic Metabolic Profile Reviewed. sd1 11:49 CBC with Diff Reviewed. sd1 11:50 Stool samples ordered. sd1 11:50 -Blood Culture (Adults Only), peripheral from different site, or from device/port/PICC sd1 etc. if present ordered. 11:51 Lactic Acid (Suqires tube on ice) Ordered. EDMS 11:51 -Blood Culture Ordered. EDMS 11:52 -Blood Culture (Adults Only), peripheral from different site, or from device/port/PICC deg etc. if present complete. 11:53 BLOOD CULTURES Ordered. EDMS 13:22 Potassium Chloride Extended Release Tablet 40 mEq PO once ordered. sd1 15:12 vancomycin 125 mg PO once ordered. bs6 15:25 vancomycin 125 mg PO once ordered. ml6 15:40 vancomycin 125 mg PO once ordered. ml6 16:13 Admission / Observation Status ordered. EDMS 16:30 PHYSICAL THERAPY EVAL & TREAT ordered. EDMS 16:30 CLEAR LIQUIDS DIET ordered. EDMS 02/16 09:50 T-Sheet-- Draft Copy was scanned into [employer] and attached to record. gb Administered Medications: 02/15 10:08 Drug: NS 0.9% 1000 ml [sodium chloride 0.9 % intravenous solution] Route: IV; Rate: 250 ml6 mL/hr; Site: left antecubital; 18:30 Follow up: IV Status: Completed infusion; Infusion discontinued; IV Intake: 1000ml ml6 13:26 Drug: Potassium Chloride 40 mEq [potassium chloride ER 10 mEq tablet,extended release ml6 (4 tabs)] Route: PO; 17:00 Drug: vancomycin 125 mg {Note: delay in medication coming from pharmacy.} Route: PO; ml6 Signatures: Dispatcher [employer] EDMary Kay Beach MD MD sd1 Beba Coronado, Scalemaker Unit deg Leia Mcdaniel, Reg Reg gb Benjamín Nance, Reg Reg lg Graciela Dawson,RN RN kr3 Marcos Andres, RN RN ml6 Anna Ferrari, DO bs6 Jerrica Enamorado, RN RN lmg The chart was reviewed and I authenticate all verbal orders and agree with the evaluation and treatment provided.Corrections: (The following items were deleted from the chart) 10:09 10:08 GASTROINTESTINAL (GI) PANEL+TIMI ordered. EDMS EDMS 16:30 10:08 NOTHING BY MOUTH+DIET ordered. EDMS EDMS 16:40 16:27 LIVER PROFILE ordered. EDMS EDMS 16:40 16:27 MAGNESIUM LEVEL ordered. EDNM EDMS Attachments: 10:56 [facility] Payment Agreement lg 02/16 09:50 T-Sheet-- Draft Copy gb Chart Complete MTDD
--- NOTE | 2016-02-18 19:36 | EDDOCDS ---
Nurse's Notes [facility] Name: Briseyda Gallegos Age: 80 yrs Sex: Female : 1935 Arrival Date: 02/16/2016 Time: 09:26 Bed 10 Private MD: Samuel Howell MD Diagnosis: Enterocolitis due to Clostridium difficile Presentation: 02/15 09:32 Presenting complaint: Patient states: history of diverticulosis and is having abdominal kr3 pain and inability to eat or drink since Saturday. Reports earlier was on 2 different antibiotics for sinus infection and thinks may have started a problem and than food intake over Jenifer did not help with problem. Adult Sepsis Screening: The patient does not have new or worsening altered mentation. Patient's respiratory rate is less than 22. Systolic blood pressure is greater than 100. Patient has a qSOFA score of 0- Negative Sepsis Screen. Suicide/Homicide risk assessment- the patient denies having any suicidal and/or homicidal ideations and does not present with any other emotional, behavioral or mental health complaints. Status: Patient is not a customer service consultant or dependent. Transition of care: patient was not received from another setting of care. 09:32 Acuity: LUIS Level 3 kr3 09:32 Method Of Arrival: Walkin/Carried/Asstd kr3 Triage Assessment: 09:38 General: Appears in no apparent distress, comfortable, Behavior is cooperative. Pain: kr3 Location: abdomen Pain currently is 6 out of 10 on a pain scale. Is intermittent. GI: Reports cramping, nausea. Derm: Skin is normal. Historical: - Allergies: Ciprofloxacin (night huerta and anxiety); Erythromycin; Macrobid; PENICILLINS; SULFA (SULFONAMIDES); - Home Meds: 1. aspirin 81 mg Oral grps 1 tab once daily (Last dose: 02/14/2016) 2. biotin oral daily (Last dose: 02/14/2016) 3. Fish Oil Oral daily (Last dose: 02/14/2016) 4. Motrin Oral 600 mg as needed 5. multivitamin Oral tab 1 tab daily (Last dose: 02/14/2016) 6. omeprazole 20 mg Oral cpDR 1 cap once daily (Last dose: 02/14/2016) 7. Spiriva with HandiHaler 18 mcg Inhl CpDv 1 cap once daily (Last dose: 02/14/2016) 8. Vitamin C Oral daily (Last dose: 02/14/2016) 9. Probiotic oral daily (Last dose: 02/14/2016) - PMHx: COPD; Emphysema; Hiatal Hernia; Diverticulosis; Diverticulitis; - PSHx: Hip Arthroplasty, Right; Cholecystectomy; Cataract Surgery- Right; D & C; - Social history: Smoking status: Patient states former smoker of tobacco. No barriers to communication noted, The patient speaks fluent Amharic, Speaks appropriately for age. - Family history: Not pertinent. - : The pt / caregiver states he / she is not on anticoagulants. Home medication list is obtained from the patient, [employer] import data. - Exposure Risk Screening:: None identified. Screenin:06 Screening information is obtained from the patient. Fall risk: No risks identified. ml6 Assistance ADL's: requires no assistance with activities of daily living. Abuse/DV Screen: The patient / caregiver reports he/she is: not in a situation that causes fear, pain or injury. Nutritional screening: No deficits noted. Advance Directives: Currently, there is no health care proxy. home support is adequate. Assessment: 09:51 General: Appears in no apparent distress. Pain: Denies pain. Neurological: No deficits ml6 noted. Level of Consciousness is awake, alert, Oriented to person, place, time, Rotor Casting Machine Setup Operator are equal bilaterally Moves all extremities. Full function Gait is steady, Speech is normal. Cardiovascular: No deficits noted. Capillary refill < 3 seconds is brisk in bilateral fingers toes Heart tones S1 S2 present. Respiratory: No deficits noted. Airway is patent Respiratory effort is even, unlabored, Respiratory pattern is regular, symmetrical, Breath sounds are clear bilaterally. GI: Abdomen is flat, non- distended Bowel sounds present X 4 quads. Abd is soft and non tender X 4 quads. 11:00 Reassessment: Patient appears in no apparent distress at this time. Patient denies pain ml6 at this time. Patient states feeling better. Patient states symptoms have improved. victor hugo denies pain, patient states that she is feeling better. 12:00 Reassessment: Patient appears in no apparent distress at this time. Patient denies pain ml6 at this time. Patient states feeling better. Patient states symptoms have improved. no changes from previous assessment. 13:00 General: Appears in no apparent distress, comfortable. Pain: Denies pain. GI: Abdomen ml6 is flat, non- distended Bowel sounds present X 4 quads. Abd is soft and non tender X 4 quads. Reports diarrhea. 14:00 Reassessment: Patient appears in no apparent distress at this time. Patient denies pain ml6 at this time. Patient states feeling better. Patient states symptoms have improved. no changes from previous assessment. 15:00 General: Appears in no apparent distress, comfortable. Pain: Denies pain. Neurological: ml6 No deficits noted. Level of Consciousness is awake, alert, Oriented to person, place, time, Rotor Casting Machine Setup Operator are equal bilaterally Moves all extremities. Full function Gait is steady, Speech is normal. Cardiovascular: No deficits noted. Capillary refill < 3 seconds is brisk Heart tones S1 S2 present. Respiratory: No deficits noted. Airway is patent Respiratory effort is even, unlabored, Respiratory pattern is regular, symmetrical, Breath sounds are clear bilaterally. GI: No deficits noted. 16:00 Reassessment: Patient appears in no apparent distress at this time. Patient denies pain ml6 at this time. Patient states feeling better. Patient states symptoms have improved. PATIENT SLEEPING SOUNDLY RESP UNLABORED. 17:00 Reassessment: Patient appears in no apparent distress at this time. Patient denies pain ml6 at this time. Patient states feeling better. Patient states symptoms have improved. 18:33 General: Appears in no apparent distress, comfortable. Pain: Denies pain. Neurological: ml6 No deficits noted. Level of Consciousness is awake, alert, Oriented to person, place, time, Rotor Casting Machine Setup Operator are equal bilaterally Moves all extremities. Full function Gait is steady. Cardiovascular: No deficits noted. Respiratory: No deficits noted. Vital Signs: 09:28 BP 134 / 71; Pulse 82; Resp 18; Temp 99.2(O); Pulse Ox 99% on R/A; Weight 60.78 kg (R); elp Height 5 ft. 4 in. (162.56 cm); Pain 6/10; 18:35 BP 125 / 74; Pulse 77; Resp 16; Temp 98.2(O); Pulse Ox 97% on R/A; Pain 0/10; ml6 09:28 Body Mass Index 23.00 (60.78 kg, 162.56 cm) elp Vitals: 09:28 Log In Time: February 16, 2016 at 09:23. elp ED Course: 09:27 Patient visited by Suly Ruiz PCA. elp 09:27 Samuel Howell is Private Physician. elp 09:27 Patient moved to Waiting elp 09:29 Patient visited by Suly Ruiz PCA. elp 09:29 Patient moved to Pre RCE elp 09:35 Triage Initiated kr3 09:39 Patient moved to 10 kr3 09:44 [facility] bs6 09:44 Mary Kay Gee MD is Attending Physician. bs6 09:48 Patient visited by Anna Ferrari DO. bs6 09:48 Patient visited by Anna Ferrari DO. bs6 10:07 Inserted peripheral IV: 18gauge IV in left antecubital area and blood collected. ml6 Patient tolerated the procedure well. Labs drawn. (by ED staff). Sent per order to lab. 10:09 Patient visited by Marcos Andres RN. ml6 10:56 [facility] Payment Agreement was scanned into [employer] and attached to record. lg 11:04 Patient visited by Marcos Andres RN. ml6 12:11 Patient visited by Marcos Andres RN. ml6 12:46 Patient visited by Marcos Andres RN. ml6 13:26 Patient visited by Marcos Andres, JARAD. ml6 13:55 Patient visited by Marcos Andres, JARAD. ml6 14:36 Patient visited by Marcos Andres RN. ml6 14:57 Patient visited by Marcos Andres RN. ml6 15:11 Akiko Deluna is Hospitalizing Provider. bs6 18:32 The patient / caregiver is instructed regarding the plan of care and ED course. ml6 18:32 No procedures done that require assistance. ml6 02/16 09:50 T-Sheet-- Draft Copy was scanned into [employer] and attached to record. gb Administered Medications: 02/15 10:08 Drug: NS 0.9% 1000 ml [sodium chloride 0.9 % intravenous solution] Route: IV; Rate: 250 ml6 mL/hr; Site: left antecubital; 18:30 Follow up: IV Status: Completed infusion; Infusion discontinued; IV Intake: 1000ml ml6 13:26 Drug: Potassium Chloride 40 mEq [potassium chloride ER 10 mEq tablet,extended release ml6 (4 tabs)] Route: PO; 17:00 Drug: vancomycin 125 mg {Note: delay in medication coming from pharmacy.} Route: PO; ml6 Intake: 18:30 IV: 1000.00ml; Total: 1000.00ml. ml6 Order Results: Lab Order: Basic Metabolic Profile; SPEC'M 02/16/16 10:35 Test: GLUCOSE, FASTING; Value: 90; Range: 83-110; Units: MG/DL; Status: F Test: BLOOD UREA NITROGEN; Value: 7; Range: 7-18; Units: MG/DL; Status: F Test: CREATININE FOR GFR; Value: 0.70; Range: 0.55-1.02; Units: MG/DL; Status: F Test: GLOMERULAR FILTRATION RATE; Value: > 60.0; Range: >39; Status: F Test: SODIUM LEVEL; Value: 140; Range: 136-145; Units: MEQ/L; Status: F Test: POTASSIUM SERUM; Value: 3.3; Range: 3.5-5.1; Abnormal: Below low normal; Units: MEQ/L; Status: F Test: CHLORIDE LEVEL; Value: 105; Range: 98-107; Units: MEQ/L; Status: F Test: CARBON DIOXIDE LEVEL; Value: 25; Range: 21-32; Units: MEQ/L; Status: F Test: ANION GAP; Value: 10; Range: 8-16; Units: MEQ/L; Status: F Test: CALCIUM LEVEL; Value: 8.6; Range: 8.8-10.2; Abnormal: Below low normal; Units: MG/DL; Status: F Test Note: ; Units are mL/min/1.73 m2 Chronic Kidney Disease Staging per NKF: Stage I & II GFR >=60 Normal to Mildly Decreased Stage III GFR 30-59 Moderately Decreased Stage IV GFR 15-29 Severely Decreased Stage V GFR <15 Very Little GFR Left ESRD GFR <15 on MANAGER FILM Lab Order: CBC with Diff; SPEC'M 02/16/16 10:35 Test: WHITE BLOOD COUNT; Value: 21.1; Range: 4.0-10.0; Abnormal: Above high normal; Units: K/mm3; Status: F Test: RED BLOOD COUNT; Value: 4.33; Range: 4.00-5.40; Units: M/mm3; Status: F Test: HEMOGLOBIN; Value: 13.4; Range: 12.0-16.0; Units: g/dl; Status: F Test: HEMATOCRIT; Value: 40.5; Range: 36.0-47.0; Units: %; Status: F Test: MEAN CORPUSCULAR VOLUME; Value: 93.6; Range: 80.0-96.0; Units: fl; Status: F Test: MEAN CORPUSCULAR HEMOGLOBIN; Value: 31.0; Range: 27.0-33.0; Units: pg; Status: F Test: MEAN CORPUSCULAR HGB CONC; Value: 33.1; Range: 32.0-36.5; Units: g/dl; Status: F Test: RED CELL DISTRIBUTION WIDTH; Value: 13.1; Range: 11.5-14.5; Units: %; Status: F Test: PLATELET COUNT, AUTOMATED; Value: 278; Range: 150-450; Units: k/mm3; Status: F Test: NEUTROPHILS %; Value: 90.6; Range: 36.0-66.0; Abnormal: Above high normal; Units: %; Status: F Test: LYMPH %; Value: 2.6; Range: 24.0-44.0; Abnormal: Below low normal; Units: %; Status: F Test: MONO %; Value: 5.3; Range: 0.0-5.0; Abnormal: Above high normal; Units: %; Status: F Test: EOS %; Value: 0.5; Range: 0.0-3.0; Units: %; Status: F Test: BASO %; Value: 0.3; Range: 0.0-1.0; Units: %; Status: F Test: LARGE UNSTAINED CELL %; Value: 0.6; Range: 0.0-4.0; Units: %; Status: F Test: NEUTROPHILS #; Value: 19.1; Range: 1.8-7.7; Abnormal: Above high normal; Units: K/mm3; Status: F Test: LYMPH #; Value: 0.7; Range: 1.5-4.5; Abnormal: Below low normal; Units: K/mm3; Status: F Test: MONO #; Value: 1.1; Range: 0.0-0.8; Abnormal: Above high normal; Units: K/mm3; Status: F Test: EOS #; Value: 0.1; Range: 0.0-0.50; Units: K/mm3; Status: F Test: BASO #; Value: 0.1; Range: 0.0-0.2; Units: K/mm3; Status: F Test: LARGE UNSTAINED CELL #; Value: 0.1; Range: 0.0-0.4; Units: K/mm3; Status: F Lab Order: GASTROINTESTINAL (GI) PANEL; SPEC'M 02/16/16 10:35 Test: GASTROINTESTINAL (GI) PANEL; Value: GI PANEL RESULT POSITIVE by PCR; Status: F Test: GASTROINTESTINAL (GI) PANEL; Value: Comments:; Status: F Test: GASTROINTESTINAL (GI) PANEL; Value: ORGANISM 1: CLOSTRIDIUM DIFFICILE A/B; Status: F Test: GASTROINTESTINAL (GI) PANEL; Value: CLOSTRIDIUM DIFFICILE A/B; Status: F Test: GASTROINTESTINAL (GI) PANEL; Value: CONSISTENCY OF STOOL UNFORMED stool.; Status: F Test: GASTROINTESTINAL (GI) PANEL; Value: CONSISTENCY COMMENT 1 Performing testing on formed stool from patients who; Status: F Test: GASTROINTESTINAL (GI) PANEL; Value: CONSISTENCY COMMENT 2 do not have CDI symptoms detects asymptomatic colonized; Status: F Test: GASTROINTESTINAL (GI) PANEL; Value: CONSISTENCY COMMENT 3 patients (up to 30% of hospitalized patients are; Status: F Test: GASTROINTESTINAL (GI) PANEL; Value: CONSISTENCY COMMENT 4 colonized with C. difficile). Patients with false; Status: F Test: GASTROINTESTINAL (GI) PANEL; Value: CONSISTENCY COMMENT 5 positive results may be given unnecessary treatment,; Status: F Test: GASTROINTESTINAL (GI) PANEL; Value: CONSISTENCY COMMENT 6 placed on contact isolation, and be at increased risk; Status: F Test: GASTROINTESTINAL (GI) PANEL; Value: CONSISTENCY COMMENT 7 of vancomycin resistant enterococci.; Status: F Test Note: ; This Gastrointestinal PCR Panel detects the following bacteria, parasites and viruses: Campylobacter (jejuni, coli and upsaliensis), Clostridium difficile (toxin A/B), Plesiomonas shigelloides, Salmonella, Yersinia enterocolitica, Vibrio (parahaemolyticus, vulnificus and cholerae), Vibrio clolerae, Enteroaggregative E. coli (EAEC), Enteropathogenis E. coli (EPEC), Enterotoxigenic E. coli (ETEC) it/st, Shiga-like producing E. coli (STEC) stx1/stc2, E.coli O157, Shigella/Enteroinvasive E. coli (EIEC), Cryptosporidium, Cyclospora cayetanensis, Entamoeba histolytica, Giardia lamblia, Adenovirus F 40/41, Astrovirus, Norovirus GI/GII, Rotavirus A and Sapovirus (I, II, IV, V). Lab Order: Lactic Acid (Squires tube on ice); SPEC'M 02/16/16 13:22 Test: LACTIC ACID LEVEL, LACTATE; Value: 0.7; Range: 0.4-2.0; Units: MMOL/L; Status: F Lab Order: LIVER PROFILE; [facility] 02/16/16 10:35 Test: AST/SGOT; Value: 12; Range: 15-37; Abnormal: Below low normal; Units: U/L; Status: F Test: ALT/SGPT; Value: 16; Range: 12-78; Units: U/L; Status: F Test: ALKALINE PHOSPHATASE; Value: 55; Range: 45-117; Units: U/L; Status: F Test: BILIRUBIN,TOTAL; Value: 0.4; Range: 0.2-1.0; Units: MG/DL; Status: F Test: BILIRUBIN,DIRECT; Value: 0.1; Range: 0.0-0.2; Units: MG/DL; Status: F Test: TOTAL PROTEIN; Value: 6.3; Range: 6.4-8.2; Abnormal: Below low normal; Units: GM/DL; Status: F Test: ALBUMIN; Value: 3.2; Range: 3.2-5.2; Units: GM/DL; Status: F Test: ALBUMIN/GLOBULIN RATIO; Value: 1.03; Range: 1.00-1.93; Status: F Lab Order: MAGNESIUM LEVEL; SPEC' 02/16/16 10:35 Test: MAGNESIUM LEVEL; Value: 2.0; Range: 1.8-2.4; Units: MG/DL; Status: F Outcome: 15:11 Decision to Hospitalize by Provider. bs6 18:31 Discharge Assessment: patient administered narcotics - no. The following High Risk ml6 Discharge criteria are identified: None. Admitted to Med/Surg accompanied by tech, via stretcher, with chart. Condition: stable. Discharge instructions given to. No special radiology studies were completed. Property :Personal belongings accompany Pt. 18:35 Patient left the ED. ml6 Signatures: Jenelle Duenas, RN RN kcs Leia Mcdaniel, Reg Reg gb Benjamín Nance, Reg Reg lg Graciela Dawson RN RN kr3 Marcos Andres RN RN ml6 Suly Ruiz, COMPUTER REPAIR ENGINEER COMPUTER REPAIR ENGINEER elp Anna Ferrari, DO DO bs6 Corrections: (The following items were deleted from the chart) 15:25 15:24 vancomycin 125 mg PO [facility] ml6 15:40 15:25 vancomycin 125 mg PO ml6 ml6 Chart Complete MTDD
--- NOTE | 2016-02-18 19:36 | EDDOCDS ---
Physician Documentation [facility] Name: Briseyda Gallegos Age: 80 yrs Sex: Female : 1935 Arrival Date: 02/16/2016 Time: 09:26 Bed 10 Private MD: Samuel Howell MD Disposition: 02/15 14:59 I have independently interviewed and examined the patient, and I agree with the sd1 investigation, diagnosis and treatment plan as documented by the Resident. Disposition: 02/16/16 15:11 Hospitalization ordered by Akiko Deluna for Inpatient Admission. Preliminary diagnosis is Enterocolitis due to Clostridium difficile. - Bed requested for 4 Park. - Status is Inpatient Admission. ml6 - Condition is Stable. - Problem is new. - Symptoms are unchanged. Historical: - Allergies: Ciprofloxacin (night huerta and anxiety); Erythromycin; Macrobid; PENICILLINS; SULFA (SULFONAMIDES); - Home Meds: 1. aspirin 81 mg Oral grps 1 tab once daily (Last dose: 02/14/2016) 2. biotin oral daily (Last dose: 02/14/2016) 3. Fish Oil Oral daily (Last dose: 02/14/2016) 4. Motrin Oral 600 mg as needed 5. multivitamin Oral tab 1 tab daily (Last dose: 02/14/2016) 6. omeprazole 20 mg Oral cpDR 1 cap once daily (Last dose: 02/14/2016) 7. Spiriva with HandiHaler 18 mcg Inhl CpDv 1 cap once daily (Last dose: 02/14/2016) 8. Vitamin C Oral daily (Last dose: 02/14/2016) 9. Probiotic oral daily (Last dose: 02/14/2016) - PMHx: COPD; Emphysema; Hiatal Hernia; Diverticulosis; Diverticulitis; - PSHx: Hip Arthroplasty, Right; Cholecystectomy; Cataract Surgery- Right; D & C; - Social history: Smoking status: Patient states former smoker of tobacco. No barriers to communication noted, The patient speaks fluent Bengali, Speaks appropriately for age. - Family history: Not pertinent. - : The pt / caregiver states he / she is not on anticoagulants. Home medication list is obtained from the patient, [employer] import data. - Exposure Risk Screening:: None identified. Vital Signs: 09:28 BP 134 / 71; Pulse 82; Resp 18; Temp 99.2(O); Pulse Ox 99% on R/A; Weight 60.78 kg / elp 134 lbs (R); Height 5 ft. 4 in. (162.56 cm); Pain 6/10; 18:35 BP 125 / 74; Pulse 77; Resp 16; Temp 98.2(O); Pulse Ox 97% on R/A; Pain 0/10; ml6 09:28 Body Mass Index 23.00 (60.78 kg, 162.56 cm) elp MDM: 10:07 NS 0.9% 1000 ml IV at 250 mL/hr continuous ordered. bs6 10:07 Undress patient appropriately for examination ordered. bs6 10:08 Basic Metabolic Profile Ordered. EDMS 10:08 CBC with Diff Ordered. EDMS 10:09 GASTROINTESTINAL (GI) PANEL Ordered. EDMS 10:16 Financial registration complete. lg 10:22 ED course: 80 yo female presents S/P cefdinir for sinusitis and flagyl for presumed sd1 enteritis resulting from c/o generalized abdominal pain very mild but intermittently increases and associated liquidy stool with every po intake no vomiting exam patient appears well in no distress abdomen soft nontender decreased BS plan check stool, lytes, hydrate consider imaging based on labs ddx: cdiff, gastroenteritits, medication intolerance, diverticulitis. 10:56 [facility] Payment Agreement was scanned into [employer] and attached to record. lg 11:49 Basic Metabolic Profile Reviewed. sd1 11:49 CBC with Diff Reviewed. sd1 11:50 Stool samples ordered. sd1 11:50 -Blood Culture (Adults Only), peripheral from different site, or from device/port/PICC sd1 etc. if present ordered. 11:51 Lactic Acid (Squires tube on ice) Ordered. EDMS 11:51 -Blood Culture Ordered. EDMS 11:52 -Blood Culture (Adults Only), peripheral from different site, or from device/port/PICC deg etc. if present complete. 11:53 BLOOD CULTURES Ordered. EDMS 13:22 Potassium Chloride Extended Release Tablet 40 mEq PO once ordered. sd1 15:12 vancomycin 125 mg PO once ordered. bs6 15:25 vancomycin 125 mg PO once ordered. ml6 15:40 vancomycin 125 mg PO once ordered. ml6 16:13 Admission / Observation Status ordered. EDMS 16:30 PHYSICAL THERAPY EVAL & TREAT ordered. EDMS 16:30 CLEAR LIQUIDS DIET ordered. EDMS 02/16 09:50 T-Sheet-- Draft Copy was scanned into [employer] and attached to record. gb Administered Medications: 02/15 10:08 Drug: NS 0.9% 1000 ml [sodium chloride 0.9 % intravenous solution] Route: IV; Rate: 250 ml6 mL/hr; Site: left antecubital; 18:30 Follow up: IV Status: Completed infusion; Infusion discontinued; IV Intake: 1000ml ml6 13:26 Drug: Potassium Chloride 40 mEq [potassium chloride ER 10 mEq tablet,extended release ml6 (4 tabs)] Route: PO; 17:00 Drug: vancomycin 125 mg {Note: delay in medication coming from pharmacy.} Route: PO; ml6 Signatures: Dispatcher [employer] EDMary Kay Beach MD MD sd1 Beba Coronado, Respiratory Equipment Assistant Unit deg Leia Mcdaniel, Reg Reg gb Benjamín Nance, Reg Reg lg Graciela Dawson,RN RN kr3 Marcos Andres, RN RN ml6 Anna Ferrari, DO bs6 Jerrica Enamorado, RN RN lmg The chart was reviewed and I authenticate all verbal orders and agree with the evaluation and treatment provided.Corrections: (The following items were deleted from the chart) 10:09 10:08 GASTROINTESTINAL (GI) PANEL+TIMI ordered. EDMS EDMS 16:30 10:08 NOTHING BY MOUTH+DIET ordered. EDMS EDMS 16:40 16:27 LIVER PROFILE ordered. EDMS EDMS 16:40 16:27 MAGNESIUM LEVEL ordered. EDCT EDMS Attachments: 10:56 [facility] Payment Agreement lg 02/16 09:50 T-Sheet-- Draft Copy gb Chart Complete MTDD
[2016-02-18 22:00] VITALS: BP 124/58
[2016-02-19] MEDS: VANCOMYCIN ORAL SOL 250MG/5ML ORAL SYRINGE PO SCH ×3 (00:45→11:33)
[2016-02-19 06:00] VITALS: BP 113/57
[2016-02-19 06:38] LABS: BASO % 0.3 % (0.0-1.0); EOS # 0.1 K/mm3 (0.0-0.50); LARGE UNSTAINED CELL # 0.1 K/mm3 (0.0-0.4); LARGE UNSTAINED CELL % 1.7 % (0.0-4.0); LYMPH # 1.2 K/mm3 (1.5-4.5); LYMPH % 17.4 % (24.0-44.0); MEAN CORPUSCULAR HEMOGLOBIN 30.6 pg (27.0-33.0); MEAN CORPUSCULAR HGB CONC 32.9 g/dl (32.0-36.5); MEAN CORPUSCULAR VOLUME 92.9 fl (80.0-96.0); MONO # 0.4 K/mm3 (0.0-0.8); MONO % 5.5 % (0.0-5.0); NEUTROPHILS # 4.8 K/mm3 (1.8-7.7); NEUTROPHILS % 73.1 % (36.0-66.0); PLATELET COUNT, AUTOMATED 276 k/mm3 (150-450); RED CELL DISTRIBUTION WIDTH 12.4 % (11.5-14.5); WHITE BLOOD COUNT 6.6 K/mm3 (4.0-10.0)
[2016-02-19 06:48] LABS: ANION GAP 11 MEQ/L (8-16); BLOOD UREA NITROGEN 3 MG/DL (7-18); CALCIUM LEVEL 8.4 MG/DL (8.8-10.2); CARBON DIOXIDE LEVEL 22 MEQ/L (21-32); CHLORIDE LEVEL 113 MEQ/L (98-107); CREATININE FOR GFR 0.55 MG/DL (0.55-1.02); GLOMERULAR FILTRATION RATE > 60.0 (>39); GLUCOSE, FASTING 116 MG/DL (83-110); MAGNESIUM LEVEL 1.9 MG/DL (1.8-2.4); POTASSIUM SERUM 3.6 MEQ/L (3.5-5.1); SODIUM LEVEL 146 MEQ/L (136-145)
[2016-02-19] MEDS: IPRATROPIUM 0.5MG/ALBUTEROL 2.5MG INH SOL UD 3ML (DUONEB)(J7620) NEB SCH (08:00)
[2016-02-19] MEDS: TIOTROPIUM INHALER/CAPSULE (SPIRIVA) INH SCH (08:25)
[2016-02-19] MEDS: MULTIVITAMINS/MINERALS THERAP 1 TAB PO SCH (09:53)
[2016-02-19] MEDS: ENOXAPARIN 30 MG/0.3 ML SYR (J1650) SC SCH (09:53)
[2016-02-19] MEDS: NYSTATIN 500,000 U/5 ML SUSP UDC SS SCH (09:53)
[2016-02-19] MEDS: LACTOBACILLUS ACIDOPHILUS CAP (BACID) PO SCH (09:53)
[2016-02-19] MEDS: ASPIRIN 81 MG ENTERIC TAB PO SCH (09:53)
[2016-02-19] MEDS ORDERED: VANC125C2 PO (13:49)
--- NOTE | 2016-02-19 16:19 | DS.PDOC ---
Discharge Summary Date Of Admission Feb 16, 2016 at 16:11 Date of Discharge Feb 19, 2016 at 14:56 Discharge Summary PRIMARY CARE PHYSICIAN: ATTENDING TODAY: Daniel Cuello SPECIALIST/CONSULTATIONS INVOLVED DURING STAY: [None.] PROCEDURES PERFORMED DURING STAY: [None.] COMPLICATIONS/CHIEF COMPLAINT: C-Diff ADMISSION DIAGNOSES: 1. Clostridium difficile colitis 2. severe diarrhea 3. COPD 4. thrush 5. hiatal hernia DISCHARGE DIAGNOSES: 1. Clostridium difficile colitis 2. COPD 3. hypokalemia 4. thrush HISTORY OF PRESENT ILLNESS: A 80-year-old female with a past medical history of diverticulitis, chronic obstructive pulmonary disease (COPD), emphysema, hiatal hernia and multiple drug allergies, presented with abdominal pain and diarrhea, started 3 days ago. Per patient, she was initially on Cefdinir for a sinus infection about 20 days ago; however, 6 days into the antibiotic, the patient developed diarrhea about six times a day, and she was diagnosed with Clostridium difficile (C diff) colitis and, therefore, was placed on Flagyl for the next 10 days. The patient's Flagyl was stopped early due to patient has metallic taste in the mouth, and it was stopped roughly 4 days ago. About 2 days after Flagyl was stopped, the diarrhea came back and it was worse than before. Per patient, whatever she eats or drinks, would come out immediately and she has nausea but no vomiting and there was no blood in the stool. In addition, she also has lower abdominal pain, which was sharp and dull and she rated it as a 6/10 at times and it comes and goes. Currently, the pain is only 0/10. The patient also admits to chills. Denies any recent traveling or sick contact. Denies any chest pain, trouble breathing, any problem with urination. HOSPITAL COURSE: Patient was admitted to the hospital and started on PO vancomycin and Bacid. She was hypokalemic, which was repleted. Her thrush was treated with nystatin. Her diarrhea did improve. Her diet was advanced as tolerated. On the morning of 02/19/2016, she tolerated a breakfast of "real food " and had only one bowel movement. Her oral vancomycin was covered by the insurance company, and she was discharged with 12 days of PO vancomycin. DISCHARGE MEDICATIONS: Please see below; also includes nystatin suspension (5 ml swish and spit BID x 3 days) and vancomycin 125 mg PO Q 6 hours x 12 days ALLERGIES: Please see below. PHYSICAL EXAMINATION ON DISCHARGE: VITAL SIGNS: Please see below. GENERAL: elderly female in NAD HEENT: MMM, EOMI NECK: without cervical lymphadenopathy CARDIOVASCULAR EXAMINATION: RRR without murmurs, rubs, or gallops RESPIRATORY EXAMINATION: CTAB ABDOMINAL EXAMINATION: soft, nontender, nondistended, bowel sounds active EXTREMITIES: without edema SKIN: no rash NEUROLOGICAL EXAMINATION: no gross abnormality PSYCHIATRIC EXAMINATION: alert and cooperative LABORATORY DATA: Please see below. IMAGING: none VTE Prophylaxis ordered?: yes DISCHARGE CONDITION: stable DISPOSITION: 01 Home, Self-Care ACTIVITY: as tolerated DIET: as tolerated ITEMS TO FOLLOWUP ON OUTPATIENT: none DISCHARGE PLAN AND INSTRUCTIONS: 1. Follow up with PCP within 7-10 days. 2. Take all medications as prescribed, including vancomycin. 3. Diet as tolerated. 4. Activity as tolerated. 5. Drink plenty clear fluids. TIME SPENT ON DISCHARGE: Greater than 20 minutes. Vital Signs/I&Os Vital Signs Date Time Temp Pulse Resp B/P Pulse Ox O2 Delivery O2 Flow Rate FiO2 02/19/16 06:00 97.3 61 17 113/57 96 Room Air I&O- Last 24 Hours up to 6 AM 02/19/16 06:00 Intake Total 3840 ml Output Total 1250 ml Balance 2590 ml Laboratory Data Labs 24H Laboratory Tests 2 02/19/16 06:00: Anion Gap 11, White Blood Count 6.6, Red Blood Count 4.11, Hemoglobin 12.6, Hematocrit 38.2, Mean Corpuscular Volume 92.9, Mean Corpuscular Hemoglobin 30.6 , Mean Corpuscular Hemoglobin Concent 32.9, Red Cell Distribution Width 12.4, Platelet Count 276, Neutrophils (%) (Auto) 73.1H, Lymphocytes (%) (Auto) 17.4L, Monocytes (%) (Auto) 5.5H, Eosinophils (%) (Auto) 2.0, Basophils (%) (Auto) 0.3 , Neutrophils # (Auto) 4.8, Lymphocytes # (Auto) 1.2L, Monocytes # (Auto) 0.4, Eosinophils # (Auto) 0.1, Basophils # (Auto) 0.0, Blood Urea Nitrogen 3L, Creatinine 0.55, Sodium Level 146H, Potassium Level 3.6, Chloride Level 113H, Carbon Dioxide Level 22, Calcium Level 8.4L, Glomerular Filtration Rate > 60.0, Large Unclassified Cells # 0.1, Large Unclassified Cells % 1.7, Magnesium Level 1.9 CBC/BMP Laboratory Tests 02/19/16 06:00 Calcium Level 8.4 L, Red Blood Count 4.11, Mean Corpuscular Volume 92.9, Mean Corpuscular Hemoglobin 30.6, Mean Corpuscular Hemoglobin Concent 32.9, Red Cell Distribution Width 12.4, Neutrophils (%) (Auto) 73.1 H, Lymphocytes (%) (Auto) 17.4 L, Monocytes (%) (Auto) 5.5 H, Eosinophils (%) (Auto) 2.0, Basophils (%) ( Auto) 0.3, Neutrophils # (Auto) 4.8, Lymphocytes # (Auto) 1.2 L, Monocytes # ( Auto) 0.4, Eosinophils # (Auto) 0.1, Basophils # (Auto) 0.0 Microbiology Microbiology 02/16/16 Blood Culture - Preliminary, Resulted No Growth after 72 hours. All specime... 02/16/16 Blood Culture - Preliminary, Resulted No Growth after 72 hours. All specime... 02/16/16 Gastrointestinal Tract Panel (PCR) - Final, Complete Clostridium Difficile A/B Medications Scheduled (Vitamin C Plus 1000 mg) 1 Tab Tab 1 TAB PO DAILY Aspirin (Aspir-81) 81 Mg Tab 81 MG PO DAILY Biotin (Vitamin H) (Biotin) 5,000 Mcg Cap 5,000 MCG PO DAILY Fish Oil (Fish Oil) 1,000 Mg Cap 1,000 MG PO DAILY Lactobacillus Acidophilus (Probiotic) 1 Cap Cap 1 CAP PO DAILY Multivitamins (Multivitamin Adults) 1 Tab Tab 1 TAB PO DAILY Tiotropium [place] Monohydrate (Spiriva Respimat) 2.5 Mcg/Act Spr 2 INHALATION INH DAILY Scheduled PRN Ibuprofen (Ibuprofen) 600 Mg Tab 600 MG PO Q8H PRN PRN PAIN Allergies Coded Allergies: Erythromycin (Unverified Allergy, Severe, HIVES,TONGUE SWELLED,ITCH, ) Nitrofurantoin (Unverified Allergy, Severe, HIVES,TONGUE SWELLS,ITCHING, ) Replaces FURADANTIN PHILLIPS Penicillins (Unverified Allergy, Severe, HIVES,TONGUE SWELLS,ITCHING, ) Ciprofloxacin (Verified Allergy, Intermediate, HIVES, 02/16/16) Sulfa Drugs (Unverified Allergy, Intermediate, HIVES, 02/16/16) DANIEL SALDIVAR DO Feb 19, 2016 16:19
== END 2016-02-19 14:56 | disposition home or self-care (01) | DRG 372 ==
LOC: M ED 09:26 → M ED INP 16:11 → M MSPAV 18:39
PROVIDERS: ADMIT Internal Medicine; ATTEND Family Medicine
DX: A04.7 Enterocolitis due to Clostridium difficile (principal); B37.0 Candidal stomatitis; J44.9 Chronic obstructive pulmonary disease, unspecified; E55.9 Vitamin D deficiency, unspecified; I11.9 Hypertensive heart disease without heart failure; E87.6 Hypokalemia; K44.9 Diaphragmatic hernia without obstruction or gangrene; G89.29 Other chronic pain; Z88.1 Allergy status to other antibiotic agents; Z88.0 Allergy status to penicillin; Z88.2 Allergy status to sulfonamides; Z79.82 Long term (current) use of aspirin; Z79.899 Other long term (current) drug therapy

== ENCOUNTER → 2016-03-12 | Outpatient (REF) | payer MEDICARE, OTHER ==
[~2016-03-12] MED LIST changes: +VANC125C2 PO; +VANC1SUS PO
[2016-03-12 18:05] LABS: ANION GAP 10 MEQ/L (8-16); BLOOD UREA NITROGEN 8 MG/DL (7-18); CALCIUM LEVEL 8.6 MG/DL (8.8-10.2); CARBON DIOXIDE LEVEL 26 MEQ/L (21-32); CHLORIDE LEVEL 105 MEQ/L (98-107); CREATININE FOR GFR 0.61 MG/DL (0.55-1.02); GLOMERULAR FILTRATION RATE > 60.0 (>39); GLUCOSE, FASTING 76 MG/DL (83-110); POTASSIUM SERUM 3.5 MEQ/L (3.5-5.1); SODIUM LEVEL 141 MEQ/L (136-145)
== END ==
LOC: M SFHCPLAZ 16:56
PROVIDERS: ATTEND Family Medicine
DX: R19.7 Diarrhea, unspecified (principal)
CPT/HCPCS: 36415; 80048; G0463

== ENCOUNTER → 2016-03-14 | Outpatient (REF) | payer MEDICARE, OTHER | LOC: M SFHCPLAZ 17:10 | PROVIDERS: ATTEND Family Medicine | DX: R19.7 Diarrhea, unspecified (principal) ==

== ENCOUNTER → 2016-04-25 | Outpatient (REF) | payer MEDICARE, OTHER | LOC: M SFHCPLAZ 16:49 | PROVIDERS: ATTEND Internal Medicine Infectious Disease | DX: R35.0 Frequency of micturition (principal) | CPT/HCPCS: 81002; 87088; 87186; G0463 ==

== ENCOUNTER → 2016-05-03 | Outpatient (REF) | payer MEDICARE, OTHER ==
[2016-05-03 13:02] LABS: BASO % 0.3 % (0.0-1.0); EOS % 0.7 % (0.0-3.0); LARGE UNSTAINED CELL # 0.1 K/mm3 (0.0-0.4); LARGE UNSTAINED CELL % 1.9 % (0.0-4.0); LYMPH # 1.2 K/mm3 (1.5-4.5); LYMPH % 17.6 % (24.0-44.0); MEAN CORPUSCULAR HGB CONC 32.9 g/dl (32.0-36.5); MEAN CORPUSCULAR VOLUME 94.2 fl (80.0-96.0); MONO # 0.4 K/mm3 (0.0-0.8); MONO % 6.3 % (0.0-5.0); NEUTROPHILS # 4.9 K/mm3 (1.8-7.7); NEUTROPHILS % 73.2 % (36.0-66.0); PLATELET COUNT, AUTOMATED 246 k/mm3 (150-450); RED CELL DISTRIBUTION WIDTH 13.2 % (11.5-14.5); WHITE BLOOD COUNT 6.7 K/mm3 (4.0-10.0)
[2016-05-03 13:24] LABS: ANION GAP 9 MEQ/L (8-16); BLOOD UREA NITROGEN 14 MG/DL (7-18); CALCIUM LEVEL 9.6 MG/DL (8.8-10.2); CARBON DIOXIDE LEVEL 27 MEQ/L (21-32); CHLORIDE LEVEL 106 MEQ/L (98-107); CREATININE FOR GFR 0.71 MG/DL (0.55-1.02); GLOMERULAR FILTRATION RATE > 60.0 (>39); GLUCOSE, FASTING 69 MG/DL (83-110); POTASSIUM SERUM 4.7 MEQ/L (3.5-5.1); SODIUM LEVEL 142 MEQ/L (136-145)
== END ==
LOC: M LABDRAWP 12:35 → M SFHCPLAZ 12:35
PROVIDERS: ATTEND Internal Medicine Infectious Disease
DX: R10.9 Unspecified abdominal pain (principal); R35.0 Frequency of micturition

== ENCOUNTER 2016-10-01 10:56 | Day surgery (SDC) | payer MEDICARE, OTHER ==
[~2016-10-01] VITALS: Ht 162.6 cm; Wt 59.0 kg
[~2016-10-01 10:56] MED LIST changes: +ACETAMINOPHEN 325 MG TAB PO PRN; +BSS with VANC/TOB/EPI for EYE CASES IR ONE; +CYCLOPENTOLATE 2% OPHTH SOLN 2ML BTL OS ONE; +HEALON DUET (HEALON 10MG/ML 0.55ML & HEALON ENDOCOAT 30MG/ML 0.85ML) As Ordered ONE; +IBUP-1022 PO; +IBUP-1114 PO; -IBUP600T26 PO; +LIDOCAINE 1% SDV 5 ML VIAL As Ordered ONE; +LIDOCAINE 3.5 % 1ML OPHTH TOPICAL GEL OU ONE; +MIDAZOLAM INJ 2 MG/2 ML VIAL (J2250) As Ordered ONE; +MOXIFLOXACIN IN BSS 0.25MG/0.25ML INTRACAMERAL INJ (OR EYE ONLY)(J2280) As Ordered ONE; +PHENYLEPHRINE 2.5% OPHTH SOL 2ML OS ONE; +POVIDONE-IODINE 5% OPHTH PREP SOL 30ML As Ordered ONE; +PROPARACAINE 0.5% OPHTH SOL 15ML OS PRN; +RANI15TA PO; +TOBRAMYCIN 0.3% OPHTH SOLN 5 ML OS ONE; +TRIAMCINOLONE PRES FR 40 MG/ML 1ML(TRIESENCE)(OR EYE ONLY)(J3300 PER 1MG) As Ordered ONE; +TROPICAMIDE 1% OPHTH SOLN 2ML OS ONE
[2016-10-01] MEDS ORDERED: D5W/0.2% SODIUM CHLORIDE 250 ML IV ONE (11:15)
[2016-10-01] MEDS ORDERED: LIDOCAINE 3.5 % 1ML OPHTH TOPICAL GEL As Ordered ONE (13:58)
[2016-10-01] MEDS ORDERED: fentaNYL 100 MCG/2 ML INJECTION (J3010) As Ordered ONE (13:59)
[2016-10-01] MEDS ORDERED: ONDANSETRON 4MG/2ML VIAL (J2405) IV PRN (15:00)
[2016-10-01] MEDS ORDERED: KETOROLAC 0.5% OPHTH SOLN OS ONE (15:00)
[2016-10-01] MEDS ORDERED: LR 1,000 ML IV SCH (15:00)
[2016-10-01] MEDS ORDERED: TRIMETHOBENZAMIDE 300 MG CAP PO PRN (15:00)
[2016-10-01 15:05] VITALS: BP 130/70
== END 2016-10-01 15:10 | disposition home or self-care (01) ==
LOC: M SDC 10:56
PROVIDERS: ATTEND Ophthalmology
DX: H26.9 Unspecified cataract (principal); J44.9 Chronic obstructive pulmonary disease, unspecified; K21.9 Gastro-esophageal reflux disease without esophagitis; K57.92 Diverticulitis of intestine, part unspecified, without perforation or abscess without bleeding; K44.9 Diaphragmatic hernia without obstruction or gangrene; M19.132 Post-traumatic osteoarthritis, left wrist; Z86.19 Personal history of other infectious and parasitic diseases; Z87.891 Personal history of nicotine dependence; Z79.899 Other long term (current) drug therapy; Z79.82 Long term (current) use of aspirin; Z88.1 Allergy status to other antibiotic agents; Z88.0 Allergy status to penicillin; Z88.2 Allergy status to sulfonamides; Z88.8 Allergy status to other drugs, medicaments and biological substances
CPT/HCPCS: 66984; J2250; J3010; J3300; V2632

== ENCOUNTER → 2016-11-14 | Outpatient (REF) | payer MEDICARE, OTHER ==
[~2016-11-14] MED LIST changes: -ACETAMINOPHEN 325 MG TAB PO PRN; -BSS with VANC/TOB/EPI for EYE CASES IR ONE; -CYCLOPENTOLATE 2% OPHTH SOLN 2ML BTL OS ONE; -HEALON DUET (HEALON 10MG/ML 0.55ML & HEALON ENDOCOAT 30MG/ML 0.85ML) As Ordered ONE; -LIDOCAINE 1% SDV 5 ML VIAL As Ordered ONE; -LIDOCAINE 3.5 % 1ML OPHTH TOPICAL GEL OU ONE; -MIDAZOLAM INJ 2 MG/2 ML VIAL (J2250) As Ordered ONE; -MOXIFLOXACIN IN BSS 0.25MG/0.25ML INTRACAMERAL INJ (OR EYE ONLY)(J2280) As Ordered ONE; -PHENYLEPHRINE 2.5% OPHTH SOL 2ML OS ONE; -POVIDONE-IODINE 5% OPHTH PREP SOL 30ML As Ordered ONE; -PROPARACAINE 0.5% OPHTH SOL 15ML OS PRN; -TOBRAMYCIN 0.3% OPHTH SOLN 5 ML OS ONE; -TRIAMCINOLONE PRES FR 40 MG/ML 1ML(TRIESENCE)(OR EYE ONLY)(J3300 PER 1MG) As Ordered ONE; -TROPICAMIDE 1% OPHTH SOLN 2ML OS ONE
[2016-11-14 10:40] LABS: MEAN CORPUSCULAR HEMOGLOBIN 31.7 pg (27.0-33.0); MEAN CORPUSCULAR HGB CONC 32.6 g/dl (32.0-36.5); MEAN CORPUSCULAR VOLUME 97.1 fl (80.0-96.0); RED CELL DISTRIBUTION WIDTH 13.5 % (11.5-14.5); WHITE BLOOD COUNT 5.9 10^3/uL (4.0-10.0)
[2016-11-14 11:26] LABS: ALBUMIN 3.8 GM/DL (3.2-5.2); ALBUMIN/GLOBULIN RATIO 1.23 (1.00-1.93); ALKALINE PHOSPHATASE 61 U/L (45-117); ALT/SGPT 19 U/L (12-78); ANION GAP 7 MEQ/L (8-16); AST/SGOT 12 U/L (15-37); BILIRUBIN,TOTAL 0.5 MG/DL (0.2-1.0); BLOOD UREA NITROGEN 21 MG/DL (7-18); CALCIUM LEVEL 9.3 MG/DL (8.8-10.2); CARBON DIOXIDE LEVEL 28 MEQ/L (21-32); CHLORIDE LEVEL 102 MEQ/L (98-107); CREATININE FOR GFR 0.63 MG/DL (0.55-1.02); GLOMERULAR FILTRATION RATE > 60.0 (>39); GLUCOSE, FASTING 75 MG/DL (83-110); POTASSIUM SERUM 4.8 MEQ/L (3.5-5.1); SODIUM LEVEL 137 MEQ/L (136-145); TOTAL PROTEIN 6.9 GM/DL (6.4-8.2)
== END ==
LOC: M SFHCPLAZ 08:09
PROVIDERS: ATTEND Family Medicine
DX: A04.7 Enterocolitis due to Clostridium difficile (principal); I11.9 Hypertensive heart disease without heart failure

== ENCOUNTER → 2016-12-18 | Outpatient (REF) | payer MEDICARE, OTHER | LOC: M SFHCPLAZ 08:44 | PROVIDERS: ATTEND Family Medicine | DX: M35.01 Sjogren syndrome with keratoconjunctivitis (principal); Z23 Encounter for immunization | CPT/HCPCS: 36415; 86038; 86235; 86431; 90662; G0008; G0463 ==

== ENCOUNTER 2017-02-04 14:38 | Emergency (ER) | payer MEDICARE, OTHER ==
[~2017-02-04] VITALS: Ht 162.6 cm; Wt 60.0 kg
--- NOTE | 2017-02-04 16:35 | REP ---
Maxillofacial CT study without contrast: History: Injury in a fall. Findings: There is a right frontal scalp hematoma. No orbital fracture is seen. Zygomatic arches are intact. No facial fracture is noted. Bony nasal septum deviates somewhat to the left. No intraorbital mass or hematoma is seen. Vascular calcification is noted in the carotid siphons bilaterally. Impression: Right frontal hematoma in the scalp. No orbital or facial fracture seen. Signed by Franklyn Trotter MD 02/04/2017 04:27 P
--- NOTE | 2017-02-04 16:48 | REP ---
CT brain without contrast: History: Injury in a fall. Findings: Preliminary digital pct radiograph is unremarkable. Bone window settings demonstrate an intact bony calvarium. No skull fracture is seen. There is a right frontal scalp hematoma. Vascular calcification is noted in the distal carotid arteries bilaterally. No intraorbital abnormality is seen. The visualized paranasal sinuses are clear. There is diffuse moderate atrophy on soft tissue window settings. Minimal small vessel changes are noted. There is no evidence of intracranial hemorrhage. No extra-axial fluid collection is seen. No mass or midline shift is observed. Impression: Diffuse atrophy and vascular calcification. Right frontal scalp hematoma. No skull fracture or intracranial injury seen. Signed by Franklyn Trotter MD 02/04/2017 04:51 P
--- NOTE | 2017-02-04 16:51 | REP ---
Right knee series: Five views. History: Injury in a fall. Findings: Five views of the right knee demonstrate a calcified enchondroma in the distal femoral diaphysis. There is diffuse osteopenia. Three compartment osteoarthritic spurring is seen. No fracture is noted. No evidence of joint effusion. Impression: Diffuse osteoporosis and three compartment osteoarthritis. Benign enchondroma in the distal femoral diaphysis. No traumatic abnormality noted. Signed by Franklyn rTotter MD 02/04/2017 09:37 P
[2017-02-04] MEDS ORDERED: LIDOCAINE 2% MDV 20 ML VIAL SC ONE (17:15)
[2017-02-04] MEDS ORDERED: NORCOTAB PO (17:37)
[2017-02-04 17:58] VITALS: BP 187/79
== END 2017-02-04 18:00 | disposition home or self-care (01) ==
LOC: M ED 14:38
DX: S01.21XA Laceration without foreign body of nose, initial encounter (principal); S80.01XA Contusion of right knee, initial encounter; S00.03XA Contusion of scalp, initial encounter; W00.0XXA Fall on same level due to ice and snow, initial encounter; Y92.481 Parking lot as the place of occurrence of the external cause; Y93.01 Activity, walking, marching and hiking; Y99.9 Unspecified external cause status

== ENCOUNTER 2017-02-12 11:31 | Emergency (ER) | payer MEDICARE, OTHER | END 2017-02-12 12:33 | disposition home or self-care (01) | LOC: M ED 11:31 | DX: Z48.02 Encounter for removal of sutures (principal); Z79.82 Long term (current) use of aspirin; Z79.899 Other long term (current) drug therapy; Z87.891 Personal history of nicotine dependence; Z88.8 Allergy status to other drugs, medicaments and biological substances; Z88.1 Allergy status to other antibiotic agents; Z88.0 Allergy status to penicillin; Z88.2 Allergy status to sulfonamides | CPT/HCPCS: 99282 ==

== ENCOUNTER → 2017-06-17 | Outpatient (CLI) | payer MEDICARE, OTHER ==
[2017-06-17 18:09] LABS: COMPLEMENT C3 98.4 MG/DL (90-180); COMPLEMENT C4 22.7 MG/DL (10-40); IMMUNOGLOBULIN G 709 MG/DL (681-1648); IMMUNOGLOBULIN M 76.3 MG/DL (40-230)
[2017-06-22 00:06] LABS: ALPHA 1 ANTITRYPSIN 123 mg/dL (90-200)
[2017-06-22 00:06] LABS: D001-IgE D pteronyssinus <0.10 kU/L (Class 0); E001-IgE Cat Epith/Dander < 0.10 kU/L (Class 0); E005-IgE Dog Dander < 0.10 kU/L (Class 0); F002-IgE Milk < 0.10 kU/L (Class 0); F004-IgE Wheat < 0.10 kU/L (Class 0); F013-IgE Peanut < 0.10 kU/L (Class 0); F014-IgE Soybean < 0.10 kU/L (Class 0); F026-IgE Pork < 0.10 kU/L (Class 0); F027-IgE Beef < 0.10 kU/L (Class 0); F245-IgE Egg, Whole < 0.10 kU/L (Class 0); FX02-IgE Food Mix (Sea Foods) Negative (.); G002-IgE Bermuda Grass < 0.10 kU/L (Class 0); G008-IgE Kentucky Bluegrass < 0.10 kU/L (Class 0); M001-IgE Penicillium chrysogen < 0.10 kU/L (Class 0); M002 IgE Cladosporium herbaru < 0.10 kU/L (Class 0); M003 IgE Aspergillus fumigatu < 0.10 kU/L (Class 0); M006-IgE Alternaria alternata < 0.10 kU/L (Class 0); T001-IgE Maple/Box Elder < 0.10 kU/L (Class 0); T003-IgE Common Silver Birch < 0.10 kU/L (Class 0); T006-IgE Cedar, Mountain < 0.10 kU/L (Class 0); T007-IgE Oak, White < 0.10 kU/L (Class 0); T008-IgE Elm, American < 0.10 kU/L (Class 0); T015-IgE Ash, White < 0.10 kU/L (Class 0); T041-IgE Hickory, White < 0.10 kU/L (Class 0); T070-IgE White Mulberry < 0.10 kU/L (Class 0); W001-IgE Ragweed, Short < 0.10 kU/L (Class 0); W009-IgE Plantain, English < 0.10 kU/L (Class 0); W014-IgE Pigweed, Rough < 0.10 kU/L (Class 0); W018-IgE Sheep Sorrel < 0.10 kU/L (Class 0)
== END ==
LOC: M WUC 12:47
DX: H10.45 Other chronic allergic conjunctivitis (principal); H57.8 Other specified disorders of eye and adnexa; R06.7 Sneezing; R09.82 Postnasal drip; J30.2 Other seasonal allergic rhinitis
CPT/HCPCS: 82103

== ENCOUNTER → 2017-06-26 | Outpatient (REF) | payer MEDICARE, OTHER ==
[2017-06-26 19:06] LABS: ANION GAP 7 MEQ/L (8-16); BLOOD UREA NITROGEN 16 MG/DL (7-18); CALCIUM LEVEL 9.4 MG/DL (8.8-10.2); CARBON DIOXIDE LEVEL 29 MEQ/L (21-32); CHLORIDE LEVEL 101 MEQ/L (98-107); CREATININE FOR GFR 0.87 MG/DL (0.55-1.30); GLOMERULAR FILTRATION RATE > 60.0 (>32); GLUCOSE, FASTING 86 MG/DL (70-100); POTASSIUM SERUM 4.7 MEQ/L (3.5-5.1); SODIUM LEVEL 137 MEQ/L (136-145)
[2017-06-26 19:29] LABS: HEMATOCRIT 42.2 % (36.0-47.0); MEAN CORPUSCULAR HEMOGLOBIN 31.6 pg (27.0-33.0); MEAN CORPUSCULAR HGB CONC 33.2 g/dl (32.0-36.5); MEAN CORPUSCULAR VOLUME 95.3 fl (80.0-96.0); PLATELET COUNT, AUTOMATED 250 10^3/uL (150-450); RED BLOOD COUNT 4.43 10^6/uL (4.00-5.40); RED CELL DISTRIBUTION WIDTH 13.3 % (11.5-14.5)
== END ==
LOC: M SFHCADAM 14:47
DX: R76.8 Other specified abnormal immunological findings in serum (principal); J44.9 Chronic obstructive pulmonary disease, unspecified; M35.01 Sjogren syndrome with keratoconjunctivitis; I11.9 Hypertensive heart disease without heart failure
CPT/HCPCS: 80048

== ENCOUNTER → 2017-07-25 | Outpatient (REF) | payer MEDICARE, OTHER ==
[2017-07-25 12:59] LABS: APPEARANCE, URINE CLEAR (CLEAR); BACTERIA, URINE AUTO NEGATIVE (NEGATIVE); BILIRUBIN, URINE AUTO NEGATIVE (NEGATIVE); BLOOD, URINE BLOOD NEGATIVE (NEGATIVE); COLOR, URINE STRAW (YELLOW); GLUCOSE, URINE (UA) AUTO NEGATIVE (NEGATIVE); KETONE, URINE AUTO NEGATIVE (NEGATIVE); LEUKOCYTE ESTERASE, URINE AUTO NEGATIVE (NEGATIVE); NITRITE, URINE AUTO NEGATIVE (NEGATIVE); PROTEIN, URINE AUTO NEGATIVE (NEGATIVE); RBC, URINE AUTO 0 /HPF (0-3); SPECIFIC GRAVITY URINE AUTO 1.003 (1.002-1.035); SQUAMOUS EPITHELIAL CELL UR AU 0 /HPF (0-6); UROBILINOGEN, URINE AUTO 0.2 mg/dL (0.0-2.0); WBC, URINE AUTO 0 /HPF (0-3)
== END ==
LOC: M SFHCADAM 09:55
DX: A49.8 Other bacterial infections of unspecified site (principal); N39.0 Urinary tract infection, site not specified
CPT/HCPCS: 81001

== ENCOUNTER → 2017-08-23 | Outpatient (REF) | payer MEDICARE, OTHER ==
[2017-08-23 16:27] LABS: AMORPHOUS SEDIMENT SMALL (NEGATIVE); APPEARANCE, URINE CLEAR (CLEAR); BACTERIA, URINE AUTO 1+ (NEGATIVE); BILIRUBIN, URINE AUTO NEGATIVE (NEGATIVE); BLOOD, URINE BLOOD NEGATIVE (NEGATIVE); COLOR, URINE YELLOW (YELLOW); GLUCOSE, URINE (UA) AUTO NEGATIVE (NEGATIVE); KETONE, URINE AUTO TRACE mg/dL (NEGATIVE); LEUKOCYTE ESTERASE, URINE AUTO 3+ (NEGATIVE); MUCUS, URINE SMALL (NEGATIVE); NITRITE, URINE AUTO POSITIVE (NEGATIVE); PROTEIN, URINE AUTO NEGATIVE (NEGATIVE); RBC, URINE AUTO 3 /HPF (0-3); SPECIFIC GRAVITY URINE AUTO 1.003 (1.002-1.035); SQUAMOUS EPITHELIAL CELL UR AU 0 /HPF (0-6); UROBILINOGEN, URINE AUTO 0.2 mg/dL (0.0-2.0); WBC, URINE AUTO 12 /HPF (0-3)
== END ==
LOC: M SFHCADAM 15:48
DX: M54.5 Low back pain (principal); R19.7 Diarrhea, unspecified; Z79.899 Other long term (current) drug therapy
CPT/HCPCS: 81001

== ENCOUNTER → 2017-09-01 | Outpatient (REF) | payer MEDICARE, OTHER ==
[2017-09-01 17:32] LABS: ALBUMIN 3.6 GM/DL (3.2-5.2); ALKALINE PHOSPHATASE 70 U/L (45-117); ALT/SGPT 18 U/L (12-78); ANION GAP 7 MEQ/L (8-16); AST/SGOT 14 U/L (7-37); BILIRUBIN,TOTAL 0.5 MG/DL (0.2-1.0); BLOOD UREA NITROGEN 8 MG/DL (7-18); CALCIUM LEVEL 8.9 MG/DL (8.8-10.2); CARBON DIOXIDE LEVEL 29 MEQ/L (21-32); CHLORIDE LEVEL 104 MEQ/L (98-107); CHOLESTEROL LEVEL 157 MG/DL (<200); CHOLESTEROL RISK RATIO 1.987 (<5); CREATININE FOR GFR 0.62 MG/DL (0.55-1.30); FREE T4 1.05 NG/DL (0.76-1.46); GLOMERULAR FILTRATION RATE > 60.0 (>32); GLUCOSE, FASTING 88 MG/DL (70-100); HDL CHOLESTEROL 79 MG/DL (>40); LDL CHOLESTEROL 64.8 MG/DL (<100); NON-HDL-C 78 MG/DL; POTASSIUM SERUM 4.3 MEQ/L (3.5-5.1); SODIUM LEVEL 140 MEQ/L (136-145); TOTAL PROTEIN 6.6 GM/DL (6.4-8.2); TRIGLYCERIDES LEVEL 66 MG/DL (<150)
== END ==
LOC: M SFHCADAM 09:52
DX: E78.2 Mixed hyperlipidemia (principal); M35.01 Sjogren syndrome with keratoconjunctivitis
CPT/HCPCS: 84443

== ENCOUNTER → 2017-09-08 | Outpatient (REF) | payer MEDICARE, OTHER | LOC: M LAB REF 08:56 | DX: Z86.19 Personal history of other infectious and parasitic diseases (principal) ==

== ENCOUNTER → 2017-09-17 | Outpatient (CLI) | payer MEDICARE, OTHER | LOC: M ADAMS 09:47 | DX: I11.9 Hypertensive heart disease without heart failure (principal); J44.9 Chronic obstructive pulmonary disease, unspecified | CPT/HCPCS: 71046 ==

== ENCOUNTER → 2017-11-11 | Outpatient (REF) | payer MEDICARE, OTHER ==
[2017-11-11 17:12] LABS: APPEARANCE, URINE CLEAR (CLEAR); BACTERIA, URINE AUTO 2+ (NEGATIVE); BILIRUBIN, URINE AUTO NEGATIVE (NEGATIVE); BLOOD, URINE BLOOD NEGATIVE (NEGATIVE); COLOR, URINE YELLOW (YELLOW); GLUCOSE, URINE (UA) AUTO NEGATIVE (NEGATIVE); KETONE, URINE AUTO NEGATIVE (NEGATIVE); LEUKOCYTE ESTERASE, URINE AUTO 3+ (NEGATIVE); NITRITE, URINE AUTO POSITIVE (NEGATIVE); PROTEIN, URINE AUTO NEGATIVE (NEGATIVE); RBC, URINE AUTO 6 /HPF (0-3); SPECIFIC GRAVITY URINE AUTO 1.003 (1.002-1.035); SQUAMOUS EPITHELIAL CELL UR AU 0 /HPF (0-6); UROBILINOGEN, URINE AUTO 0.2 mg/dL (0.0-2.0); WBC, URINE AUTO 77 /HPF (0-3)
== END ==
LOC: M SFHCADAM 16:32
DX: R35.0 Frequency of micturition (principal)
CPT/HCPCS: 81001

== ENCOUNTER 2017-11-22 08:20 | Inpatient (IN) | payer MEDICARE, OTHER ==
[2017-11-22 09:05] LABS: BASO % 0.5 % (0.0-1.0); EOS % 0.4 % (0.0-3.0); HEMATOCRIT 45.7 % (36.0-47.0); HEMOGLOBIN 15.6 g/dl (12.0-15.5); IMMATURE GRANULOCYTE % 0.7 % (0-3.0); LYMPH # 0.8 10^3/uL (1.5-4.5); LYMPH % 10.9 % (24.0-44.0); MEAN CORPUSCULAR HEMOGLOBIN 31.8 pg (27.0-33.0); MEAN CORPUSCULAR HGB CONC 34.1 g/dl (32.0-36.5); MEAN CORPUSCULAR VOLUME 93.1 fl (80.0-96.0); MONO # 0.5 10^3/uL (0.0-0.8); MONO % 6.8 % (0.0-5.0); NEUTROPHILS % 80.7 % (36.0-66.0); PLATELET COUNT, AUTOMATED 253 10^3/uL (150-450); RED BLOOD COUNT 4.91 10^6/uL (4.00-5.40); RED CELL DISTRIBUTION WIDTH 12.5 % (11.5-14.5); WHITE BLOOD COUNT 7.4 10^3/uL (4.0-10.0)
[2017-11-22 09:19] LABS: ANION GAP 9 MEQ/L (8-16); BLOOD UREA NITROGEN 7 MG/DL (7-18); CALCIUM LEVEL 9.2 MG/DL (8.8-10.2); CARBON DIOXIDE LEVEL 26 MEQ/L (21-32); CHLORIDE LEVEL 102 MEQ/L (98-107); CREATININE FOR GFR 0.66 MG/DL (0.55-1.30); GLOMERULAR FILTRATION RATE > 60.0 (>32); GLUCOSE, FASTING 107 MG/DL (70-100); POTASSIUM SERUM 3.7 MEQ/L (3.5-5.1); SODIUM LEVEL 137 MEQ/L (136-145)
[2017-11-22] MEDS: NS 1,000 ML IV (09:44)
[2017-11-22] MEDS: GASTROGRAFIN SOLUTION 30ML PO ×2 (09:44→10:18)
[2017-11-22 10:29] LABS: ALBUMIN 4.1 GM/DL (3.2-5.2); ALBUMIN/GLOBULIN RATIO 1.21 (1.00-1.93); ALKALINE PHOSPHATASE 74 U/L (45-117); ALT/SGPT 18 U/L (12-78); AST/SGOT 13 U/L (7-37); BILIRUBIN,DIRECT 0.2 MG/DL (0.0-0.2); BILIRUBIN,TOTAL 0.6 MG/DL (0.2-1.0); LIPASE 125 U/L (73-393); TOTAL PROTEIN 7.5 GM/DL (6.4-8.2)
[2017-11-22] MEDS ORDERED: ISOVUE-370 76% 100ML VIAL (Q9967) As Ordered (11:15)
[2017-11-22 11:35] LABS: KETONE, URINE AUTO RFX NEGATIVE (NEGATIVE); MUCUS, URINE RFX SMALL (NEGATIVE); RBC, URINE AUTO RFX 3 /HPF (0-3); SPECIFIC GRAVITY UR AUTO RFX 1.003 (1.002-1.035); SQUAM EPITHELIAL CELL UR AURFX 0 /HPF (0-6)
[2017-11-22 11:37] LABS: LEUKOCYTE ESTERASE UR AUTO RFX 3+ (NEGATIVE); NITRITE, URINE AUTO RFX POSITIVE (NEGATIVE); WBC, URINE AUTO RFX 73 /HPF (0-3)
[2017-11-22] MEDS ORDERED: MEROPENEM INJ 500 MG in APPROPRIATE DILUENT 1 EA IV (12:45)
[2017-11-22] MEDS ORDERED: ONDANSETRON 4MG/2ML VIAL (J2405) IV (12:45)
[2017-11-22] MEDS: metroNIDAZOLE (FLAGYL) 500 MG TAB PO ×2 (13:44→21:34)
[2017-11-22] MEDS ORDERED: ALBUTEROL 90 MCG/ACT 8GM HFA INHALER INH (14:45)
[2017-11-22] MEDS: FLUBLOK(EGG FREE)(QUAD)INFLUENZA VACC 0.5ML SYRINGE (90682)18YRS&OLDER IM (15:30)
[2017-11-22] MEDS: ASPIRIN 81 MG ENTERIC TAB PO (15:47)
[2017-11-22] MEDS: MEROPENEM INJ 1 GM in APPROPRIATE DILUENT 1 EA IV ×2 (15:48→22:41)
[2017-11-22] MEDS: amLODIPine 5 MG TAB PO (15:48)
[2017-11-22] MEDS: LACTOBACILLUS ACIDOPHILUS CAP (BACID) PO (18:02)
[2017-11-22] MEDS: FAMOTIDINE 20 MG TAB PO (21:34)
[2017-11-22] MEDS: ACETAMINOPHEN TAB 650MG DOSE (2X325MG) PO (23:34)
[2017-11-23] MEDS: ACETAMINOPHEN TAB 650MG DOSE (2X325MG) PO (04:08)
[2017-11-23] MEDS: metroNIDAZOLE (FLAGYL) 500 MG TAB PO ×3 (06:26→22:10)
[2017-11-23] MEDS: MEROPENEM INJ 1 GM in APPROPRIATE DILUENT 1 EA IV ×3 (06:26→22:09)
[2017-11-23 07:18] LABS: BASO # 0.1 10^3/uL (0.0-0.2); BASO % 0.8 % (0.0-1.0); EOS # 0.1 10^3/uL (0.0-0.50); EOS % 1.7 % (0.0-3.0); HEMATOCRIT 38.7 % (36.0-47.0); IMMATURE GRANULOCYTE % 0.5 % (0-3.0); LYMPH # 1.3 10^3/uL (1.5-4.5); LYMPH % 19.5 % (24.0-44.0); MEAN CORPUSCULAR HEMOGLOBIN 32.2 pg (27.0-33.0); MEAN CORPUSCULAR HGB CONC 34.6 g/dl (32.0-36.5); MONO # 0.6 10^3/uL (0.0-0.8); MONO % 9.6 % (0.0-5.0); NEUTROPHILS # 4.5 10^3/uL (1.8-7.7); NEUTROPHILS % 67.9 % (36.0-66.0); PLATELET COUNT, AUTOMATED 233 10^3/uL (150-450); RED BLOOD COUNT 4.16 10^6/uL (4.00-5.40); RED CELL DISTRIBUTION WIDTH 12.6 % (11.5-14.5); WHITE BLOOD COUNT 6.6 10^3/uL (4.0-10.0)
[2017-11-23 07:23] LABS: HEMOGLOBIN 13.4 g/dl (12.0-15.5)
[2017-11-23] MEDS: TIOTROPIUM INHALER/CAPSULE (SPIRIVA) INH (07:42)
[2017-11-23 07:43] LABS: ANION GAP 8 MEQ/L (8-16); BLOOD UREA NITROGEN 5 MG/DL (7-18); CALCIUM LEVEL 8.8 MG/DL (8.8-10.2); CARBON DIOXIDE LEVEL 25 MEQ/L (21-32); CHLORIDE LEVEL 107 MEQ/L (98-107); CREATININE FOR GFR 0.48 MG/DL (0.55-1.30); GLOMERULAR FILTRATION RATE > 60.0 (>32); GLUCOSE, FASTING 81 MG/DL (70-100); POTASSIUM SERUM 4.2 MEQ/L (3.5-5.1); SODIUM LEVEL 140 MEQ/L (136-145)
[2017-11-23] MEDS: ASPIRIN 81 MG ENTERIC TAB PO (08:19)
[2017-11-23] MEDS: MULTIVITAMINS/MINERALS THERAP 1 TAB PO (08:19)
[2017-11-23] MEDS: ENOXAPARIN 30 MG/0.3 ML SYR (J1650) SC (08:20)
[2017-11-23] MEDS: LACTOBACILLUS ACIDOPHILUS CAP (BACID) PO ×3 (08:20→17:19)
[2017-11-23] MEDS: OMEGA-3 1000MG CAPSULE PO (09:47)
[2017-11-23 11:46] LABS: BEDSIDE GLUCOSE 83 MG/DL (83-110)
[2017-11-23 16:32] LABS: BEDSIDE GLUCOSE 76 MG/DL (83-110)
[2017-11-23] MEDS: FAMOTIDINE 20 MG TAB PO (22:10)
[2017-11-23] MEDS: amLODIPine 5 MG TAB PO (22:10)
[2017-11-23] MEDS: FLUBLOK(EGG FREE)(QUAD)INFLUENZA VACC 0.5ML SYRINGE (90682)18YRS&OLDER IM (22:40)
[2017-11-24] MEDS: metroNIDAZOLE (FLAGYL) 500 MG TAB PO ×3 (05:12→21:13)
[2017-11-24 06:13] LABS: BASO % 0.4 % (0.0-1.0); EOS # 0.2 10^3/uL (0.0-0.50); HEMATOCRIT 42.5 % (36.0-47.0); HEMOGLOBIN 14.4 g/dl (12.0-15.5); IMMATURE GRANULOCYTE % 0.5 % (0-3.0); LYMPH % 13.5 % (24.0-44.0); MEAN CORPUSCULAR HGB CONC 33.9 g/dl (32.0-36.5); MEAN CORPUSCULAR VOLUME 94.4 fl (80.0-96.0); MONO # 0.7 10^3/uL (0.0-0.8); NEUTROPHILS # 5.4 10^3/uL (1.8-7.7); NEUTROPHILS % 73.6 % (36.0-66.0); PLATELET COUNT, AUTOMATED 223 10^3/uL (150-450); RED CELL DISTRIBUTION WIDTH 12.8 % (11.5-14.5); WHITE BLOOD COUNT 7.3 10^3/uL (4.0-10.0)
[2017-11-24] MEDS: MEROPENEM INJ 1 GM in APPROPRIATE DILUENT 1 EA IV ×3 (06:36→22:17)
[2017-11-24 06:38] LABS: ANION GAP 7 MEQ/L (8-16); BLOOD UREA NITROGEN 4 MG/DL (7-18); CALCIUM LEVEL 8.5 MG/DL (8.8-10.2); CARBON DIOXIDE LEVEL 27 MEQ/L (21-32); CHLORIDE LEVEL 106 MEQ/L (98-107); CREATININE FOR GFR 0.53 MG/DL (0.55-1.30); GLOMERULAR FILTRATION RATE > 60.0 (>32); GLUCOSE, FASTING 89 MG/DL (70-100); SODIUM LEVEL 140 MEQ/L (136-145)
[2017-11-24] MEDS: TIOTROPIUM INHALER/CAPSULE (SPIRIVA) INH (07:33)
[2017-11-24] MEDS: LACTOBACILLUS ACIDOPHILUS CAP (BACID) PO ×3 (08:02→17:07)
[2017-11-24] MEDS: OMEGA-3 1000MG CAPSULE PO (08:02)
[2017-11-24] MEDS: MULTIVITAMINS/MINERALS THERAP 1 TAB PO (08:02)
[2017-11-24] MEDS: ASPIRIN 81 MG ENTERIC TAB PO (08:02)
[2017-11-24] MEDS: ACETAMINOPHEN TAB 650MG DOSE (2X325MG) PO ×2 (08:03→21:13)
[2017-11-24] MEDS: ENOXAPARIN 30 MG/0.3 ML SYR (J1650) SC (08:03)
[2017-11-24] MEDS: FAMOTIDINE 20 MG TAB PO (17:46)
[2017-11-24] MEDS: amLODIPine 5 MG TAB PO (21:14)
[2017-11-25] MEDS: metroNIDAZOLE (FLAGYL) 500 MG TAB PO (05:17)
[2017-11-25 06:25] LABS: BASO % 0.7 % (0.0-1.0); EOS # 0.2 10^3/uL (0.0-0.50); EOS % 2.9 % (0.0-3.0); HEMATOCRIT 40.6 % (36.0-47.0); HEMOGLOBIN 13.9 g/dl (12.0-15.5); IMMATURE GRANULOCYTE % 0.3 % (0-3.0); LYMPH # 1.1 10^3/uL (1.5-4.5); LYMPH % 19.4 % (24.0-44.0); MEAN CORPUSCULAR HGB CONC 34.2 g/dl (32.0-36.5); MEAN CORPUSCULAR VOLUME 93.5 fl (80.0-96.0); MONO # 0.6 10^3/uL (0.0-0.8); MONO % 10.7 % (0.0-5.0); NEUTROPHILS # 3.9 10^3/uL (1.8-7.7); PLATELET COUNT, AUTOMATED 235 10^3/uL (150-450); RED BLOOD COUNT 4.34 10^6/uL (4.00-5.40); RED CELL DISTRIBUTION WIDTH 12.5 % (11.5-14.5); WHITE BLOOD COUNT 5.9 10^3/uL (4.0-10.0)
[2017-11-25 06:51] LABS: ANION GAP 6 MEQ/L (8-16); BLOOD UREA NITROGEN 6 MG/DL (7-18); CALCIUM LEVEL 8.9 MG/DL (8.8-10.2); CARBON DIOXIDE LEVEL 29 MEQ/L (21-32); CHLORIDE LEVEL 105 MEQ/L (98-107); CREATININE FOR GFR 0.54 MG/DL (0.55-1.30); GLOMERULAR FILTRATION RATE > 60.0 (>32); GLUCOSE, FASTING 86 MG/DL (70-100); SODIUM LEVEL 140 MEQ/L (136-145)
[2017-11-25] MEDS: MEROPENEM INJ 1 GM in APPROPRIATE DILUENT 1 EA IV (07:30)
[2017-11-25] MEDS: TIOTROPIUM INHALER/CAPSULE (SPIRIVA) INH (07:52)
[2017-11-25] MEDS: LACTOBACILLUS ACIDOPHILUS CAP (BACID) PO (07:57)
[2017-11-25] MEDS: OMEGA-3 1000MG CAPSULE PO (07:57)
[2017-11-25] MEDS: ASPIRIN 81 MG ENTERIC TAB PO (07:57)
[2017-11-25] MEDS: MULTIVITAMINS/MINERALS THERAP 1 TAB PO (07:57)
[2017-11-25] MEDS: ENOXAPARIN 30 MG/0.3 ML SYR (J1650) SC (07:58)
== END 2017-11-25 11:58 | disposition home or self-care (01) | DRG 392 ==
LOC: M ED 08:20 → M ED INP 12:36 → M MSPAV 15:11
DX: K57.32 Diverticulitis of large intestine without perforation or abscess without bleeding (principal); N39.0 Urinary tract infection, site not specified; I10 Essential (primary) hypertension; J44.9 Chronic obstructive pulmonary disease, unspecified; B96.20 Unspecified Escherichia coli [E. coli] as the cause of diseases classified elsewhere; K21.9 Gastro-esophageal reflux disease without esophagitis; Z87.891 Personal history of nicotine dependence; Z79.82 Long term (current) use of aspirin; Z79.899 Other long term (current) drug therapy; Z88.2 Allergy status to sulfonamides; Z88.1 Allergy status to other antibiotic agents; Z88.8 Allergy status to other drugs, medicaments and biological substances

== ENCOUNTER → 2017-12-26 | Outpatient (CLI) | payer MEDICARE, OTHER | LOC: M RAD 13:44 | DX: R05 Cough (principal); J44.9 Chronic obstructive pulmonary disease, unspecified; K44.9 Diaphragmatic hernia without obstruction or gangrene | CPT/HCPCS: 71250 ==

== ENCOUNTER → 2018-05-20 | Outpatient (CLI) | payer MEDICARE, OTHER ==
[~2018-05-20] MED LIST changes: +AMLO5TAB6 PO; +AUGM875T28 PO; +BACITAB PO; +CEPH500C PO; +FISH7.5C PO; +IBUPOTC PO; +METR-201 PO; +NORCOTAB PO; +SPIR1AER INH
--- NOTE | 2018-05-20 10:22 | REP ---
LEFT CLAVICLE: Three views. HISTORY: Hypertrophy of the left clavicle. FINDINGS: The left glenohumeral and acromioclavicular joints are normally aligned. There is osteoarthritic spurring at the inferior aspect of the distal clavicle at the AC joint. There is subcortical cyst formation in the humeral head. Minimal inferior humeral head osteophyte formation is noted. Periarticular soft tissues are unremarkable. IMPRESSION: Osteoarthritis at the AC and glenohumeral joints. No acute bony abnormality. Electronically Signed by Franklyn Trotter MD 05/20/2018 01:15 P
== END ==
LOC: M ADAMS 09:40
PROVIDERS: ATTEND Family Medicine
DX: M85.4 Solitary bone cyst (principal); M25.712 Osteophyte, left shoulder; M25.711 Osteophyte, right shoulder; M89.312 Hypertrophy of bone, left shoulder

== ENCOUNTER → 2018-06-06 | Outpatient (CLI) | payer MEDICARE, OTHER ==
[~2018-06-06] MED LIST changes: +E-Z-GAS II EFFERVESCENT PACKET (SODIUM BICARB./CITRIC ACID/SIMETHICONE) As Ordered ONE; +E-Z-HD 98% w/w 340GM SUSP BTL As Ordered ONE; +E-Z-PAQUE 96% w/w SUSP 176GM BTL As Ordered ONE; +HYDR-3715 PO; -METR-201 PO; +METR-265 PO; -NORCOTAB PO; -VANC125C2 PO; +VANC125C3 PO
--- NOTE | 2018-06-06 16:33 | REP ---
Esophagram The procedure was performed under the direct supervision of Dr. Trotter. The images were reviewed with Dr. Trotter. A single view PA chest x-ray is submitted as a dragline engineer film. The superior mediastinal structures are midline. The heart size is within normal limits. The lungs are clear. Liquid barium and gas producing granules were given in the erect position as well as liquid barium in the prone oblique positions in order to perform a double contrast esophagram examination. The oral and pharyngeal stages of deglutition are unremarkable. There is a large fixed hiatal hernia. There is no evidence of esophagitis stricture or mucosal ring. There is gastroesophageal reflux demonstrated to above the level of the smith. Impression: There is a large fixed hiatal hernia. There is gastroesophageal reflux demonstrated to above the level of the smith. 0.8 minutes of fluoro time was utilized for this procedure. Reviewed by GARRETT Alcazar 06/06/2018 04:09 P Electronically Signed by Franklyn Trotter MD 06/06/2018 04:31 P
== END ==
LOC: M RAD 10:02
PROVIDERS: ATTEND Family Medicine
DX: K21.9 Gastro-esophageal reflux disease without esophagitis (principal); K44.9 Diaphragmatic hernia without obstruction or gangrene

== ENCOUNTER 2018-07-02 10:03 | Emergency (ER) | payer MEDICARE, OTHER ==
[~2018-07-02] VITALS: Ht 157.5 cm; Wt 64.3 kg
[~2018-07-02 10:03] MED LIST changes: -E-Z-GAS II EFFERVESCENT PACKET (SODIUM BICARB./CITRIC ACID/SIMETHICONE) As Ordered ONE; -E-Z-HD 98% w/w 340GM SUSP BTL As Ordered ONE; -E-Z-PAQUE 96% w/w SUSP 176GM BTL As Ordered ONE
[2018-07-02 12:11] LABS: BASO % 0.6 % (0.0-1.0); EOS # 0.1 10^3/uL (0.0-0.50); HEMOGLOBIN 14.7 g/dl (12.0-15.5); LYMPH # 1.2 10^3/uL (1.5-4.5); LYMPH % 17.2 % (24.0-44.0); MEAN CORPUSCULAR HEMOGLOBIN 32.5 pg (27.0-33.0); MEAN CORPUSCULAR HGB CONC 33.4 g/dl (32.0-36.5); MEAN CORPUSCULAR VOLUME 97.3 fl (80.0-96.0); MONO # 0.5 10^3/uL (0.0-0.8); MONO % 7.4 % (0.0-5.0); NEUTROPHILS # 5.3 10^3/uL (1.8-7.7); NEUTROPHILS % 73.4 % (36.0-66.0); PLATELET COUNT, AUTOMATED 255 10^3/uL (150-450); RED BLOOD COUNT 4.52 10^6/uL (4.00-5.40); WHITE BLOOD COUNT 7.2 10^3/uL (4.0-10.0)
[2018-07-02 13:02] LABS: ALBUMIN 3.9 GM/DL (3.2-5.2); ALT/SGPT 17 U/L (12-78); BILIRUBIN,DIRECT 0.2 MG/DL (0.0-0.2); BILIRUBIN,TOTAL 0.5 MG/DL (0.2-1.0); BLOOD UREA NITROGEN 9 MG/DL (7-18); CALCIUM LEVEL 9.3 MG/DL (8.8-10.2); CARBON DIOXIDE LEVEL 27 MEQ/L (21-32); CHLORIDE LEVEL 102 MEQ/L (98-107); CREATININE FOR GFR 0.77 MG/DL (0.55-1.30); GLOMERULAR FILTRATION RATE > 60.0 (>32); GLUCOSE, FASTING 90 MG/DL (70-100); LIPASE 130 U/L (73-393); SODIUM LEVEL 140 MEQ/L (136-145); TOTAL PROTEIN 7.7 GM/DL (6.4-8.2)
[2018-07-02] MEDS ORDERED: ISOVUE-370 76% 100ML VIAL (Q9967) As Ordered ONE (13:23)
--- NOTE | 2018-07-02 14:42 | REP ---
CT abdomen and pelvis with IV but without oral contrast: History: Upper abdominal pain. Rule out diverticulitis. Previous history of diverticulitis. Comparison CT study November 22, 2017. CT contrast dose: 100 mL of intravenous Isovue 370. CT findings: Digital preliminary milling machine operator radiograph demonstrates a prosthetic right hip and retained high-density diverticular barium in the left colon and transverse colon. There are clips in right upper quadrant. On axial CT images, there is mild linear fibrosis in the lung bases bilaterally. A large hiatal hernia is seen. No focal hepatic or splenic lesion is appreciated. No adrenal lesion is seen on either side. No pancreatic abnormality is observed. Gallbladder is surgically absent. The kidneys enhance symmetrically and are morphologically intact. No hydronephrosis is seen. No calculus is seen. Extensive vascular calcification is noted. There is scattered diverticulosis in the colon distal to the proximal transverse segment. There is no definite CT evidence of diverticulitis. There is no evidence of free air or abscess. Urinary bladder is unremarkable. No uterine or adnexal abnormality is appreciated. The appendix is not separately identified but there is no CT evidence of appendicitis. Impression: Essentially pancolonic diverticulosis. No CT evidence of diverticulitis. Post cholecystectomy. Large hiatal hernia. Electronically Signed by Franklyn Trotter MD 07/02/2018 04:32 P
[2018-07-02] MEDS ORDERED: KEFL500C17 PO (15:16)
[2018-07-02 15:25] VITALS: BP 158/70
== END 2018-07-02 15:32 | disposition home or self-care (01) ==
LOC: M ED 10:03
DX: N39.0 Urinary tract infection, site not specified (principal); K44.9 Diaphragmatic hernia without obstruction or gangrene; I10 Essential (primary) hypertension; K21.9 Gastro-esophageal reflux disease without esophagitis; J44.9 Chronic obstructive pulmonary disease, unspecified; Z86.19 Personal history of other infectious and parasitic diseases; K57.32 Diverticulitis of large intestine without perforation or abscess without bleeding; Z79.82 Long term (current) use of aspirin; Z79.899 Other long term (current) drug therapy; Z88.1 Allergy status to other antibiotic agents; Z88.2 Allergy status to sulfonamides; Z88.8 Allergy status to other drugs, medicaments and biological substances
CPT/HCPCS: 74177; 80048; 80076; 81001; 83690; 85025; 87086; 99284; Q9967

== ENCOUNTER → 2018-08-11 | Outpatient (CLI) | payer MEDICARE, OTHER ==
[~2018-08-11] MED LIST changes: +KEFL500C17 PO
[2018-08-11 09:42] LABS: HEMATOCRIT 42.6 % (36.0-47.0); HEMOGLOBIN 14.4 g/dl (12.0-15.5); MEAN CORPUSCULAR HEMOGLOBIN 32.6 pg (27.0-33.0); MEAN CORPUSCULAR HGB CONC 33.8 g/dl (32.0-36.5); MEAN CORPUSCULAR VOLUME 96.4 fl (80.0-96.0); PLATELET COUNT, AUTOMATED 233 10^3/uL (150-450); RED BLOOD COUNT 4.42 10^6/uL (4.00-5.40); WHITE BLOOD COUNT 5.5 10^3/uL (4.0-10.0)
[2018-08-11 10:18] LABS: ALBUMIN 3.6 GM/DL (3.2-5.2); ALT/SGPT 18 U/L (12-78); BILIRUBIN,TOTAL 0.5 MG/DL (0.2-1.0); BLOOD UREA NITROGEN 12 MG/DL (7-18); CALCIUM LEVEL 9.2 MG/DL (8.8-10.2); CARBON DIOXIDE LEVEL 30 MEQ/L (21-32); CHLORIDE LEVEL 103 MEQ/L (98-107); CHOLESTEROL LEVEL 186 MG/DL (<200); CHOLESTEROL RISK RATIO 2.066 (<5); CREATININE FOR GFR 0.58 MG/DL (0.55-1.30); FREE T4 0.91 NG/DL (0.76-1.46); GLOMERULAR FILTRATION RATE > 60.0 (>32); GLUCOSE, FASTING 82 MG/DL (70-100); HDL CHOLESTEROL 90 MG/DL (>40); LDL CHOLESTEROL 83 MG/DL (<100); NON-HDL-C 96 MG/DL; POTASSIUM SERUM 4.3 MEQ/L (3.5-5.1); SODIUM LEVEL 139 MEQ/L (136-145); TOTAL PROTEIN 6.9 GM/DL (6.4-8.2); TRIGLYCERIDES LEVEL 67 MG/DL (<150)
[2018-08-11 11:37] LABS: VITAMIN B12 LEVEL 595 PG/ML (247-911)
[2018-08-11 11:51] LABS: FOLATE > 24.0 NG/ML (>5.4)
== END ==
LOC: M WUC 08:23
PROVIDERS: ATTEND Family Medicine
DX: R21 Rash and other nonspecific skin eruption (principal); R53.83 Other fatigue; E78.2 Mixed hyperlipidemia

== ENCOUNTER → 2018-12-17 | Outpatient (REF) | payer MEDICARE, OTHER ==
[~2018-12-17] MED LIST changes: -OMEP20CA3 PO; +OMEP20CA4 PO
== END ==
LOC: M SFHCADAM 15:28
PROVIDERS: ATTEND Family Medicine
DX: N39.0 Urinary tract infection, site not specified (principal)

== ENCOUNTER → 2018-12-24 | Outpatient (CLI) | payer MEDICARE, OTHER ==
--- NOTE | 2018-12-24 14:54 | REP ---
CT ABDOMEN/PELVIS WITHOUT IV OR ORAL CONTRAST: HISTORY: Right-sided abdomen pain. COMPARISON STUDY: July 02, 2018. Preliminary digital ice skating instructor radiograph demonstrates a right hip arthroplasty. There are clips in the right upper quadrant. Bowel gas pattern is normal. Degenerative changes are noted in the lumbar spine. On axial CT images, the lung bases are essentially clear except for some fibronodular changes in the right lower lobe posteromedially adjacent to the spine. These are unchanged compared to the May 11, 2015 prior study. No pleural effusion is seen. The liver and the spleen are normal in size, homogeneous in texture. There is a large hiatal hernia. There are clips in the gallbladder fossa. No pancreatic abnormality is noted. There is some vascular calcification in the kidneys. No hydronephrosis is seen. There is pancolonic diverticulosis. There is no CT evidence of diverticulitis. Urinary bladder is intact. No uterine abnormalities observed. A normal appendix is seen in the right lower quadrant adjacent to the cecum. Vascular calcification is seen in a normal caliber aorta. IMPRESSION: Pancolonic diverticulosis. Extensive vascular calcification. Post cholecystectomy clips. No CT evidence of diverticulitis. Normal appendix. Hiatal hernia. Electronically Signed by Franklyn Trotter MD 12/24/2018 04:53 P
== END ==
LOC: M RAD 09:59
PROVIDERS: ATTEND Family Medicine
DX: R10.9 Unspecified abdominal pain (principal)

== ENCOUNTER 2019-01-03 11:19 | Emergency (ER) | payer MEDICARE, OTHER ==
[~2019-01-03] VITALS: Ht 162.6 cm; Wt 58.2 kg
[2019-01-03] MEDS ORDERED: CICL0.7739 (11:28)
[2019-01-03] MEDS ORDERED: CLOT10TR (11:43)
[2019-01-03 12:24] LABS: BASO # 0.1 10^3/uL (0.0-0.2); BASO % 0.8 % (0.0-1.0); EOS # 0.1 10^3/uL (0.0-0.5); EOS % 1.4 % (0.0-3.0); HEMATOCRIT 41.4 % (36.0-47.0); HEMOGLOBIN 14.1 g/dl (12.0-15.5); LYMPH # 0.7 10^3/uL (1.5-5.0); LYMPH % 12.3 % (24.0-44.0); MEAN CORPUSCULAR HEMOGLOBIN 31.5 pg (27.0-33.0); MEAN CORPUSCULAR HGB CONC 34.1 g/dl (32.0-36.5); MEAN CORPUSCULAR VOLUME 92.6 fl (80.0-96.0); MONO # 0.5 10^3/uL (0.0-0.8); MONO % 7.6 % (0.0-5.0); NEUTROPHILS # 4.6 10^3/uL (1.5-8.5); NEUTROPHILS % 77.6 % (36.0-66.0); PLATELET COUNT, AUTOMATED 229 10^3/uL (150-450); RED BLOOD COUNT 4.47 10^6/uL (4.00-5.40); WHITE BLOOD COUNT 5.9 10^3/uL (4.0-10.0)
[2019-01-03] MEDS ORDERED: amLODIPine 5 MG TAB PO ONE (12:30)
[2019-01-03 12:35] VITALS: BP 161/81
[2019-01-03] MEDS: GASTROGRAFIN SOLUTION 30ML PO SCH ×2 (12:39→13:12)
[2019-01-03 12:52] LABS: ALBUMIN 3.7 GM/DL (3.2-5.2); ALT/SGPT 15 U/L (12-78); BILIRUBIN,DIRECT 0.2 MG/DL (0.0-0.2); BILIRUBIN,TOTAL 0.8 MG/DL (0.2-1.0); BLOOD UREA NITROGEN 10 MG/DL (7-18); CALCIUM LEVEL 9.5 MG/DL (8.8-10.2); CARBON DIOXIDE LEVEL 26 MEQ/L (21-32); CHLORIDE LEVEL 103 MEQ/L (98-107); CREATININE FOR GFR 0.58 MG/DL (0.55-1.30); GLOMERULAR FILTRATION RATE > 60.0 (>32); GLUCOSE, FASTING 70 MG/DL (70-100); LIPASE 69 U/L (73-393); POTASSIUM SERUM 3.8 MEQ/L (3.5-5.1); SODIUM LEVEL 138 MEQ/L (136-145); TOTAL PROTEIN 6.8 GM/DL (6.4-8.2)
[2019-01-03] MEDS ORDERED: ISOVUE-370 76% 100ML VIAL (Q9967) As Ordered ONE (14:21)
[2019-01-03] MEDS ORDERED: KEFL500C17 PO (16:14)
[2019-01-03 16:38] VITALS: BP 178/84
--- NOTE | 2019-01-04 06:36 | REP ---
CT abdomen and pelvis with IV and oral contrast: History: Right-sided abdominal pain and diarrhea. Comparison CT study December 24, 2018. July 02, [address] study is also reviewed. CT contrast dose: 100 ml of intravenous Isovue 370. CT findings: Preliminary digital automotive light mechanic radiograph is unremarkable. The lung bases are clear. There is a fairly large hiatal hernia. No focal hepatic or splenic lesion is seen. Post cholecystectomy clips are noted. Common bile duct is normal post cholecystectomy at 7.5 mm. This is unchanged from comparison CT study July 02, 2018. No abnormality is noted in the pancreas. The kidneys enhance symmetrically. There is an intrarenal calculus in the left kidney lower pole 3 mm in diameter. There is pancolonic diverticulosis. This is most pronounced in the sigmoid colon. There is no CT evidence of diverticulitis. The appendix is not directly visualized but there is no CT evidence to suggest appendicitis. No uterine or adnexal abnormality is seen. Urinary bladder is intact. There is an arthroplasty in the right hip. No abdominal wall defect. Impression: Post cholecystectomy. Pancolonic diverticulosis again noted without CT evidence of diverticulitis. No acute abdominal abnormality. Electronically Signed by Franklyn Trotter MD 01/04/2019 08:25 A
== END 2019-01-03 16:39 | disposition home or self-care (01) ==
LOC: M ED 11:19
DX: N39.0 Urinary tract infection, site not specified (principal); J44.9 Chronic obstructive pulmonary disease, unspecified; I10 Essential (primary) hypertension; E78.5 Hyperlipidemia, unspecified; K44.9 Diaphragmatic hernia without obstruction or gangrene; Z87.19 Personal history of other diseases of the digestive system; Z79.899 Other long term (current) drug therapy; Z79.82 Long term (current) use of aspirin; Z88.1 Allergy status to other antibiotic agents; Z88.2 Allergy status to sulfonamides; Z88.8 Allergy status to other drugs, medicaments and biological substances; Z87.891 Personal history of nicotine dependence
CPT/HCPCS: 36415; 74177; 80048; 80076; 81001; 83690; 85025; 87088; 87186; 99284; Q9963; Q9967

== ENCOUNTER → 2019-02-27 | Outpatient (REF) | payer MEDICARE, OTHER ==
[~2019-02-27] MED LIST changes: +CICL0.7739; +CLOT10TR; +OMEP-172 PO; -OMEP20CA4 PO
[2019-02-27 14:26] LABS: ALBUMIN 4.1 GM/DL (3.2-5.2); ALT/SGPT 17 U/L (12-78); BILIRUBIN,TOTAL 0.5 MG/DL (0.2-1.0); BLOOD UREA NITROGEN 16 MG/DL (7-18); CALCIUM LEVEL 9.4 MG/DL (8.8-10.2); CARBON DIOXIDE LEVEL 30 MEQ/L (21-32); CHLORIDE LEVEL 106 MEQ/L (98-107); CHOLESTEROL LEVEL 182 MG/DL (<200); CHOLESTEROL RISK RATIO 2.022 (<5); CREATININE FOR GFR 0.81 MG/DL (0.55-1.30); GLOMERULAR FILTRATION RATE > 60.0 (>32); GLUCOSE, FASTING 73 MG/DL (70-100); HDL CHOLESTEROL 90 MG/DL (>40); LDL CHOLESTEROL 80 MG/DL (<100); NON-HDL-C 92 MG/DL; POTASSIUM SERUM 4.6 MEQ/L (3.5-5.1); SODIUM LEVEL 140 MEQ/L (136-145); TRIGLYCERIDES LEVEL 59 MG/DL (<150)
== END ==
LOC: M SFHCADAM 10:00
PROVIDERS: ATTEND Family Medicine
DX: I11.9 Hypertensive heart disease without heart failure (principal); E78.2 Mixed hyperlipidemia

== ENCOUNTER 2019-07-28 12:46 | Emergency (ER) | payer MEDICARE, OTHER ==
[~2019-07-28] VITALS: Ht 162.6 cm; Wt 63.8 kg
[~2019-07-28 12:46] MED LIST changes: -OMEP-172 PO; +OMEP1CAP73 PO
[2019-07-28] MEDS ORDERED: NS 1,000 ML IV SCH (13:22)
[2019-07-28] MEDS ORDERED: ONDANSETRON 4MG/2ML VIAL IV ONE (13:30)
[2019-07-28] MEDS ORDERED: PANTOPRAZOLE 40MG VIAL (C9113 PER 1) IV ONE (13:30)
[2019-07-28 13:59] LABS: BASO % 0.3 % (0.0-1.0); EOS # 0.1 10^3/uL (0.0-0.5); EOS % 0.9 % (0.0-3.0); HEMOGLOBIN 13.3 g/dl (12.0-15.5); LYMPH # 1.1 10^3/uL (1.5-5.0); LYMPH % 15.1 % (24.0-44.0); MEAN CORPUSCULAR HEMOGLOBIN 31.6 pg (27.0-33.0); MEAN CORPUSCULAR HGB CONC 33.3 g/dl (32.0-36.5); MONO # 0.6 10^3/uL (0.0-0.8); MONO % 8.2 % (0.0-5.0); NEUTROPHILS # 5.3 10^3/uL (1.5-8.5); NEUTROPHILS % 75.2 % (36.0-66.0); PLATELET COUNT, AUTOMATED 216 10^3/uL (150-450); RED BLOOD COUNT 4.21 10^6/uL (4.00-5.40)
[2019-07-28 14:20] LABS: INR 1.07; PROTHROMBIN TIME 13.6 SECONDS (11.8-14.0)
[2019-07-28 14:24] LABS: ALBUMIN 3.6 GM/DL (3.2-5.2); ALT/SGPT 17 U/L (12-78); BILIRUBIN,DIRECT 0.2 MG/DL (0.0-0.2); BILIRUBIN,TOTAL 0.7 MG/DL (0.2-1.0); BLOOD UREA NITROGEN 9 MG/DL (7-18); CALCIUM LEVEL 8.9 MG/DL (8.8-10.2); CARBON DIOXIDE LEVEL 27 MEQ/L (21-32); CHLORIDE LEVEL 104 MEQ/L (98-107); CREATININE FOR GFR 0.64 MG/DL (0.55-1.30); GLOMERULAR FILTRATION RATE > 60.0 (>32); GLUCOSE, FASTING 86 MG/DL (70-100); LIPASE 93 U/L (73-393); POTASSIUM SERUM 3.9 MEQ/L (3.5-5.1); SODIUM LEVEL 136 MEQ/L (136-145); TOTAL PROTEIN 6.5 GM/DL (6.4-8.2)
[2019-07-28] MEDS ORDERED: PYRI1TAB5 PO (14:45)
[2019-07-28] MEDS ORDERED: KEFL500C17 PO (14:45)
[2019-07-28 14:58] VITALS: BP 160/89
--- NOTE | 2019-07-28 16:07 | REP ---
CT ABDOMEN AND PELVIS WITHOUT CONTRAST: CT abdomen and pelvis performed without oral or IV contrast. Sagittal and coronal reconstruction images are performed. Comparison is made with the prior study of 01/03/2019. Mild fibroatelectatic change is seen in the visualized lung bases. There is a large hiatal hernia. The liver is grossly unremarkable. The patient has had a prior cholecystectomy. The spleen is grossly unremarkable. The adrenal glands demonstrate no mass. No gross pancreatic abnormality is seen. Punctate calcification is seen in the left kidney mid aspect. There is no hydroureteronephrosis. There is moderate atherosclerotic calcification of the abdominal aorta. No aneurysm is seen. There is no adenopathy. There is no free air. I see no free fluid or fluid collection. There is diffuse colonic diverticulosis without CT evidence of acute diverticulitis. I seen on pelvic mass. Urinary bladder appears unremarkable. Metallic prosthesis is noted of the right hip. There are degenerative changes of the spine. IMPRESSION: Diffuse colonic diverticulosis without evidence of acute diverticulitis. No free air, uyen fluid or bowel obstruction. Large hiatal hernia. Electronically Signed by Patrick Squires MD 07/30/2019 12:50 A
== END 2019-07-28 15:00 | disposition home or self-care (01) ==
LOC: M ED 12:46
DX: N39.0 Urinary tract infection, site not specified (principal); K57.90 Diverticulosis of intestine, part unspecified, without perforation or abscess without bleeding; K44.9 Diaphragmatic hernia without obstruction or gangrene; J44.9 Chronic obstructive pulmonary disease, unspecified; Z87.891 Personal history of nicotine dependence; Z88.2 Allergy status to sulfonamides; Z88.1 Allergy status to other antibiotic agents; Z88.8 Allergy status to other drugs, medicaments and biological substances; Z79.899 Other long term (current) drug therapy; Z79.82 Long term (current) use of aspirin
CPT/HCPCS: 74176; 80048; 80076; 81001; 83690; 85025; 85610; 87086; 96361; 96374; 96375; 99284; C9113; J2405

== ENCOUNTER → 2019-09-04 | Outpatient (REF) | payer MEDICARE, OTHER ==
[~2019-09-04] MED LIST changes: +AMLO1TAB24 PO; -AMLO5TAB6 PO; -ASPI81TA85 PO; +ASPI81TA86 PO; +AUGM12TA11 PO; +PYRI1TAB5 PO
[2019-09-04 22:00] LABS: APPEARANCE, URINE CLOUDY (CLEAR); BACTERIA, URINE AUTO NEGATIVE (NEGATIVE); BILIRUBIN, URINE AUTO NEGATIVE (NEGATIVE); BLOOD, URINE BLOOD NEGATIVE (NEGATIVE); COLOR, URINE YELLOW (YELLOW); GLUCOSE, URINE (UA) AUTO NEGATIVE (NEGATIVE); KETONE, URINE AUTO NEGATIVE (NEGATIVE); LEUKOCYTE ESTERASE, URINE AUTO 3+ (NEGATIVE); MUCUS, URINE SMALL (NEGATIVE); NITRITE, URINE AUTO POSITIVE (NEGATIVE); PROTEIN, URINE AUTO NEGATIVE (NEGATIVE); RBC, URINE AUTO 9 /HPF (0-3); SPECIFIC GRAVITY URINE AUTO 1.005 (1.002-1.035); SQUAMOUS EPITHELIAL CELL UR AU 0 /HPF (0-6); UROBILINOGEN, URINE AUTO 0.2 mg/dL (0.0-2.0); WBC, URINE AUTO TNTC /HPF (0-3)
== END ==
LOC: M SFHCADAM 15:37
PROVIDERS: ATTEND Family Medicine
DX: R30.0 Dysuria (principal)
CPT/HCPCS: 81001; 87088; 87186; G0463

== ENCOUNTER 2019-11-21 10:27 | Emergency (ER) | payer MEDICARE, OTHER ==
[~2019-11-21] VITALS: Ht 162.6 cm; Wt 66.2 kg
[~2019-11-21 10:27] MED LIST changes: -AUGM12TA11 PO
[2019-11-21 12:01] LABS: BASO % 0.4 % (0.0-1.0); EOS % 0.2 % (0.0-3.0); HEMATOCRIT 41.4 % (36.0-47.0); LYMPH # 0.9 10^3/uL (1.5-5.0); LYMPH % 9.8 % (24.0-44.0); MEAN CORPUSCULAR HGB CONC 33.8 g/dl (32.0-36.5); MEAN CORPUSCULAR VOLUME 94.5 fl (80.0-96.0); MONO # 0.7 10^3/uL (0.0-0.8); MONO % 7.3 % (0.0-5.0); NEUTROPHILS # 7.4 10^3/uL (1.5-8.5); NEUTROPHILS % 81.9 % (36.0-66.0); PLATELET COUNT, AUTOMATED 237 10^3/uL (150-450); RED BLOOD COUNT 4.38 10^6/uL (4.00-5.40); WHITE BLOOD COUNT 9.1 10^3/uL (4.0-10.0)
[2019-11-21] MEDS: GASTROGRAFIN SOLUTION 30ML PO SCH ×2 (12:22→12:52)
[2019-11-21] MEDS ORDERED: ISOVUE-370 76% 100ML VIAL As Ordered ONE (13:58)
--- NOTE | 2019-11-21 14:52 | REPVR ---
PROCEDURE INFORMATION: Exam: CT Abdomen And Pelvis With Contrast Exam date and time: 11/21/2019 2:03 PM Age: 84 years old Clinical indication: Abdominal pain; Localized; Lower; Additional info: Diverticulitis TECHNIQUE: Imaging protocol: Computed tomography of the abdomen and pelvis with intravenous contrast. Radiation optimization: All CT scans at this facility use at least one of these dose optimization techniques: automated exposure control; mA and/or kV adjustment per patient size (includes targeted exams where dose is matched to clinical indication); or iterative reconstruction. Contrast material: ISOVUE 370; Contrast volume: 100 ml; Contrast route: INTRAVENOUS (IV); COMPARISON: CT ABD PELVIS W/O CONTRAST 07/28/2019 1:23 PM FINDINGS: Lungs: Hyperinflation. Parenchymal stranding and stable poorly defined 9 mm nodular density in the right lower lobe.For both low risk and high risk patients, consider CT Chest at 3 months, PET/CT or biopsy. (Reference: Vanessa). Large hiatal hernia. Liver: No focal hepatic mass. Gallbladder and bile ducts: Status post cholecystectomy with biliary ductal dilatation. Pancreas: 13 mm high attenuation cystic structure in the medial aspect of the pancreatic head (series 202: Image 42), which was poorly evaluated on the previous noncontrast study. Spleen: No splenomegaly. Adrenals: Unremarkable adrenals. Kidneys and ureters: 7 mm cyst in the posterior left kidney. 1 mm nonobstructing left renal calculus. Stomach and bowel: No significant small bowel dilatation. Prominent stool. Diverticulosis with left colonic wall thickening and mild infiltration of pericolonic fat, consistent with diverticulitis in the appropriate clinical setting. Additional cecal wall thickening without associated diverticula. Colonoscopy can be performed for improved characterization, if clinically indicated. Appendix: Appendix not visualized. Intraperitoneal space: No significant free fluid. Vasculature: Prominent vascular calcification. No abdominal aortic aneurysm. Lymph nodes: Subcentimeter lymph nodes. Urinary bladder: Bladder dilatation. Reproductive: Unremarkable as visualized. Bones/joints: Beam hardening artifact in association with right hip arthroplasty. Degenerative change, disc bulging, and scoliosis. Soft tissues: Calcification at the gluteal muscle attachment sites. IMPRESSION: 1. Diverticulosis with left colonic wall thickening and mild infiltration of pericolonic fat, consistent with diverticulitis in the appropriate clinical setting. 2. Additional cecal wall thickening without associated diverticula. Colonoscopy can be performed for improved characterization, if clinically indicated. 3. Additional findings as described above. COMMENTS: Consistent with the [employer]'s Incidental Findings Committee white paper (J Am Juan Alberto Radiol 2018): Any incidental renal lesion less than 1.0 cm or classified as too small to characterize, or any incidental cystic renal lesion characterized as simple-appearing, is likely benign. No follow-up imaging is recommended for these lesions per consensus recommendations based on imaging criteria. Electronically signed by: Juni Polanco On 11/21/2019 14:51:47 PM
[2019-11-21 15:21] LABS: BASO % 0.3 % (0.0-1.0); EOS % 0.4 % (0.0-3.0); LYMPH # 1.3 10^3/uL (1.5-5.0); LYMPH % 11.6 % (24.0-44.0); MONO # 0.8 10^3/uL (0.0-0.8); MONO % 7.6 % (0.0-5.0); NEUTROPHILS # 8.7 10^3/uL (1.5-8.5); NEUTROPHILS % 79.6 % (36.0-66.0); WHITE BLOOD COUNT 10.9 10^3/uL (4.0-10.0)
[2019-11-21 15:55] VITALS: BP 190/86
[2019-11-21] MEDS ORDERED: AUGM12TA11 PO (16:06)
== END 2019-11-21 16:17 | disposition home or self-care (01) ==
LOC: M ED 10:27
DX: K57.32 Diverticulitis of large intestine without perforation or abscess without bleeding (principal); K63.89 Other specified diseases of intestine; I10 Essential (primary) hypertension; E78.5 Hyperlipidemia, unspecified; J44.9 Chronic obstructive pulmonary disease, unspecified; Z87.891 Personal history of nicotine dependence; Z88.1 Allergy status to other antibiotic agents; Z88.2 Allergy status to sulfonamides; Z79.899 Other long term (current) drug therapy; Z79.82 Long term (current) use of aspirin
CPT/HCPCS: 36415; 74177; 80047; 85025; 99284; Q9963; Q9967

== ENCOUNTER → 2019-12-03 | Outpatient (CLI) | payer MEDICARE, OTHER ==
[~2019-12-03] MED LIST changes: +AUGM12TA11 PO
[2019-12-03 13:45] LABS: HEMOGLOBIN 14.3 g/dl (12.0-15.5); MEAN CORPUSCULAR HEMOGLOBIN 32.3 pg (27.0-33.0); MEAN CORPUSCULAR HGB CONC 33.3 g/dl (32.0-36.5); MEAN CORPUSCULAR VOLUME 97.1 fl (80.0-96.0); PLATELET COUNT, AUTOMATED 251 10^3/uL (150-450); RED BLOOD COUNT 4.43 10^6/uL (4.00-5.40); WHITE BLOOD COUNT 6.3 10^3/uL (4.0-10.0)
[2019-12-03 14:17] LABS: ALBUMIN 3.9 GM/DL (3.2-5.2); ALT/SGPT 15 U/L (12-78); BILIRUBIN,TOTAL 0.5 MG/DL (0.2-1.0); BLOOD UREA NITROGEN 11 MG/DL (7-18); CALCIUM LEVEL 9.3 MG/DL (8.8-10.2); CARBON DIOXIDE LEVEL 29 MEQ/L (21-32); CHLORIDE LEVEL 98 MEQ/L (98-107); CHOLESTEROL LEVEL 177 MG/DL (<200); CHOLESTEROL RISK RATIO 2.298 (<5); CREATININE FOR GFR 0.67 MG/DL (0.55-1.30); GLOMERULAR FILTRATION RATE > 60.0 (>32); GLUCOSE, FASTING 81 MG/DL (70-100); HDL CHOLESTEROL 77 MG/DL (>40); LDL CHOLESTEROL 86 MG/DL (<100); NON-HDL-C 100 MG/DL; POTASSIUM SERUM 4.8 MEQ/L (3.5-5.1); SODIUM LEVEL 133 MEQ/L (136-145); TOTAL PROTEIN 6.9 GM/DL (6.4-8.2); TRIGLYCERIDES LEVEL 71 MG/DL (<150)
== END ==
LOC: M WUC 10:17
PROVIDERS: ATTEND Family Medicine
DX: J44.9 Chronic obstructive pulmonary disease, unspecified (principal); E78.2 Mixed hyperlipidemia; I11.9 Hypertensive heart disease without heart failure

== ENCOUNTER → 2019-12-04 | Outpatient (CLI) | payer MEDICARE, OTHER ==
[~2019-12-04] MED LIST changes: +PROHANCE 279.3MG/ML 15ML VIAL As Ordered ONE
--- NOTE | 2019-12-04 11:04 | REP ---
INDICATION: MASS PANCREAS cystic lesion in the medial pancreatic head on November [address] study, 13 mm in diameter. COMPARISON: Comparison CT study 21 November 2019. More remote comparison CT studies are reviewed as well dated November 22, 2017 and January 03, 2019.. TECHNIQUE: Axial and coronal T1 and T2 weighted scans include spin echo, fast spin echo, gradient echo, in and out of phase, and dynamically acquired sequential postcontrast T1 fat-sat images. Gadolinium enhancement dose is 12 mL of intravenous ProHance. FINDINGS: Gallbladder surgically absent. No liver mass lesion is seen. No focal splenic lesion is observed. There are tiny cortical cysts in the kidneys. There is no evidence of ascites. A hiatal hernia is noted. Normal adrenal glands are seen. T2 weighted scans confirmed the presence of a cystic lesion along the posterior border of the pancreas in the midline, pancreatic head region. This measures 14 mm craniocaudal by 13 mm right to left by 6 mm anteroposterior. This corresponds with the recent CT findings. On T2 weighted scans, this appears to communicate with the pancreatic duct. The main pancreatic duct duct is not dilated. There is also a tiny 3 mm cyst in the body of the pancreas. In the tail of the pancreas there is of focal slight ductal dilation. No mass lesion is seen. No abnormal pancreatic contrast enhancement is appreciated. The cystic changes do not show enhancement. No abnormal contrast enhancement is seen in the liver. Common bile duct is normal post cholecystectomy measuring 6 mm. No retroperitoneal mass or adenopathy is seen. IMPRESSION: 14 mm cystic lesion in the head of the pancreas appears to communicate with the main duct. There is focal ductal dilation in the pancreatic tail and a tiny 3 mm cyst is seen in the pancreatic tail as well low grade cystic neoplasm versus simple pancreatic cyst. Endoscopic pancreatic ultrasound could be considered. Interval follow-up recommended.. <Electronically signed by Jose Trotter > 12/04/19 1100
== END ==
LOC: M RAD 09:11
PROVIDERS: ATTEND Family Medicine
DX: K86.2 Cyst of pancreas (principal); K44.9 Diaphragmatic hernia without obstruction or gangrene; Z90.49 Acquired absence of other specified parts of digestive tract; N28.1 Cyst of kidney, acquired
CPT/HCPCS: 74183; A9576

== ENCOUNTER → 2020-03-04 | Outpatient (REF) | payer MEDICARE, OTHER ==
[~2020-03-04] MED LIST changes: -PROHANCE 279.3MG/ML 15ML VIAL As Ordered ONE
[2020-03-04 18:12] LABS: APPEARANCE, URINE HAZY (CLEAR); BACTERIA, URINE AUTO 1+ (NEGATIVE); BILIRUBIN, URINE AUTO NEGATIVE (NEGATIVE); BLOOD, URINE BLOOD NEGATIVE (NEGATIVE); COLOR, URINE YELLOW (YELLOW); GLUCOSE, URINE (UA) AUTO NEGATIVE (NEGATIVE); KETONE, URINE AUTO NEGATIVE (NEGATIVE); LEUKOCYTE ESTERASE, URINE AUTO 3+ (NEGATIVE); NITRITE, URINE AUTO NEGATIVE (NEGATIVE); PROTEIN, URINE AUTO NEGATIVE (NEGATIVE); RBC, URINE AUTO 1 /HPF (0-3); SPECIFIC GRAVITY URINE AUTO 1.004 (1.002-1.035); SQUAMOUS EPITHELIAL CELL UR AU 0 /HPF (0-6); UROBILINOGEN, URINE AUTO 0.2 mg/dL (0.0-2.0); WBC, URINE AUTO 26 /HPF (0-3)
== END ==
LOC: M SFHCADAM 15:39
PROVIDERS: ATTEND Family Medicine
DX: N39.0 Urinary tract infection, site not specified (principal)

== ENCOUNTER → 2020-04-02 | Outpatient (CLI) | payer MEDICARE, OTHER ==
[~2020-04-02] MED LIST changes: +ASPI81TA26 PO; +VITMTA PO
== END ==
LOC: M LABSMTC 10:30
PROVIDERS: ATTEND Anesthesiology
DX: Z01.812 Encounter for preprocedural laboratory examination (principal); Z20.822 Contact with and (suspected) exposure to COVID-19

== ENCOUNTER 2020-04-07 06:48 | Day surgery (SDC) | payer MEDICARE, OTHER ==
[~2020-04-07] VITALS: Ht 162.6 cm; Wt 62.1 kg
[~2020-04-07 06:48] MED LIST changes: +NS 1,000 ML IV ONE
--- OUTSIDE RECORDS SUMMARY | 2020-04-07 06:56 | CCD ---
Author Author [facility] Organization [facility] Address Unknown Phone Unavailable Care Team Providers Care Documentation Improvement Specialist Name Role Phone Samuel Howell Unavailable PROBLEMS Type Condition ICD9-CM Code ZYH00-SY Code Onset Dates Condition S tatus SNOMED Code Notes Problem Diverticulosis of intestine, part unspecified, without perforation or abscess without bleeding K57.90 Active 38241317 Problem Abdominal pain R10.9 Active 85899174 Problem Vitamin D deficiency, unspecified E55.9 Active 01265173 Problem Other intervertebral disc degeneration, lumbosacral region M51.37 Active 10374801 Problem Essential (primary) hypertension I10 Active 88731551 Problem Hypertensive heart disease without heart failure I 11.9 Active 20073393 Problem Recurrent Clostridium difficile diarrhea A04.7 Active 04036260 Problem Mixed hyperlipidemia E78.2 Active 052529919 Problem History of diverticulitis Z87.19 Active 026861 683400012 Problem Chronic obstructive pulmonary disease, unspecified J44.9 Active 72070335 Problem Sicca syndrome M35.00 Active 866781687 Problem 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 Active 43868716 Problem YAAKOV positive R76.8 Active 174808364 Problem Esophageal motility disorder K22.4 Active 266 307036 Problem History of right hip replacement Z96.641 Active 634657251 Problem Chronic cough R05 Active 81266802 Problem 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 Active 66750112 1 Problem Gastroesophageal reflux disease without esophagitis K21.9 Active 009143556 Problem Encounter for immunization Z23 Active 08808 4003 Problem 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 0139139 02 Problem Diverticulitis of large inte radha without perforation or abscess without bleeding K57.32 Active 5651275 Problem Hiatal hernia K44.9 Active 44898066 Problem Medicare annual wellness visit, subsequent Z00.00 Active 976800467 Problem Disturbances of sensation of smell and taste 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.9 Active 2240135099301 ALLERGIES Allergen (clinical drug ingredient) Drug/Non Drug Allergy do cumented on EMR Reaction Allergy Type Onset Date Status nitrates hives, tongue swelled Non Drug Allergy Active sulfa Hives Non Drug Allergy Active nitrofurantoin hives, tongue swelling Non Drug Allergy Active erythromycin Erythromycin([facility] Code:[address]-40) Hives Drug All ergy Active Cipro nightmares, felt depressed Non Drug Allergy Active Cefnidir c diff colitis 02/02 Non Drug Allergy Active PPIs/omeprazole hx c diff colitis, severe Non Drug Allergy Active Combivent shakey, insomnia Drug Allergy Active ENCOUNTERS from 1936 to 2020-03-11 Encounter Location Date Provider Diagnosis [facility] [address] [place] [address] 15 Feb, 2020 Patric Howell 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 ; Hypertensive heart disease without heart failure I11.9 ; Chronic obstructive pulmonary disease, unspecified J44.9 ; Diverticulosis of intestine, part unspecified, without perforation or abscess without bleeding K57.90 and Recurrent UTI N39.0 IMMUNIZATIONS Vaccine Route Administration Date Status Influenza (High Dose 65 & up) IM Intramuscular Dec 18, 2016 A dministered Influenza (High Dose 65 & up) Unknown Nov 21, 2016 Re fused Zoster 50mcg/0.5mL (Shingrix) Unknown Jan 30, 2018 Ad ministered Influenza (18 yrs & older) Flublok Unknown Nov 25, 2017 Administered Influenza (6mo & up) Fluzone IM Intramuscular Dec 07, 2009 Ad ministered Influenza (High Dose 65 & up) Unknown Mar 21, 2016 Ot hers Influenza (High Dose 65 & up) IM Intramuscular Dec 03, 2014 A dministered Influenza (High Dose 65 & up) Unknown Dec 02, 2013 Ad ministered Zoster 0.65mL (Zostavax) Unknown Jan 21, 2012 Adminis tered Pneumococcal Adult 0.5mL (Pneumovax 23) Unknown Apr 15, 1996 Administered TDAP 0.5mL (Boostrix) Unknown July 20, 2010 Administer ed Pneumococcal 0.5mL (Prevnar 13) IM Intramuscular Dec 17, 2013 Administered Influenza (6mo & up) Fluzone IM Intramuscular Nov 30, 2011 Ad ministered SOCIAL HISTORY Tobacco Use: Social History Observation Description Date Details (start date - stop date) Former Smoker Sex Assigned At : Social History Observation Description Sex Assigned At Unknown Education: Question Answer Notes Level of Education: Graduate Audit Question Answer Notes Total Score: 4 Interpretation: Alcohol Education Language: Question Answer Notes Languages spoken: Niuean Mormonism: Question Answer Notes Mormonism 21 Jewish Sexual Hx: Question Answer Notes Had sex in the last 12 months (vaginal, oral, or anal)? No Have you ever had an STD? No Drug and Alcohol Question Answer Notes Total Score: 0 Interpretation: No problems reported Alcohol Screening: Question Answer Notes Did you have a drink containing alcohol in the past year? Ye s Points 4 Interpretation Positive How often did you have six or more drinks on one occas ion in the past year? Never (0 points) How many drinks did you have on a typica l day when you were drinking in the past year? 1 or 2 (0 points) How often did you have a drink containing alcohol in t he past year? Four or more times a week (4 points) Tobacco Use: Question Answer Notes Are you a: former smoker How long has it been since you last smoked? > 10 years REASON FOR REFERRAL No Information VITAL SIGNS Weight 142 lbs Feb, Height 64 in Feb, BMI 24.37 kg/m2 Feb, Heart Rate 84 /min Feb, Respiratory Rate 18 /min Feb, Temperature 97.7 degrees Fahrenheit Feb, Oximetry 96 Feb, Blood pressure systolic 128 mm Hg Feb, Blood pressure diastolic 70 mm Hg Feb, MEDICATIONS Medication SIG (Take, Route, Frequency, Duration) Notes Start Da te End Date Status Spiriva Respimat 2.5 MCG/ACT 2 puffs Inhalation Once a day for 90 Active Keflex 250 MG 1 capsule Orally tid for 7 day(s) Aug, Not-Taking Biotin 1000 mcg 1 tablet Orally Once a day Not-Taking Aspir-81 81 MG 1 tablet Orally Once a day Nov, Active Ibuprofen 200 MG 2 tablet with food or milk as needed Orally daily Active Darwin 3 1200 MG 1 capsule Orally Once a day Active Multivitamins OTC 1 tablet Orally Once a day Active Clotrimazole 10 MG 1 mumtaz Mouth/Throat four times daily for 5 days Nov, Not-Taking Ciclopirox Olamine 0.77 % 1 application Externally Twice a day f or 30 days Nov, Active Bacid - as directed Orally Daily for 90 Active AmLODIPine Besylate 5 MG 1 tablet Orally Once a day for 90 Active Mometasone Furoate 0.1 % 1 application to affected ar ea Externally Once a day for 30 day(s) Apr, Active Amoxicillin-Pot Clavulanate Not-Taking PROCEDURES No Information RESULTS Component Value Reference Range URINE CULTURE Reviewed date:03/09/2020 09:21:35 Interpretation: Performing Lab:[facility] [id number] , ,[place] [address] REASON FOR VISIT overdue FU/vaccine discussion, ? 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/20 Medical History Normal nuclear stress test [facility] 01/26--n l perfusion, EF 76% Medical History hyperlipidemia-- ASCVD risk 20%, pt decl laurita statin tx Medical History C Diff - 01/2016, 2016 Medical History allergic conjunctivitis 05/05 Medical History + YAAKOV (low titer 1:80), no c linical sx of SLE; Dr Ordaz/Rheum 07/05 agrees not lupus Medical History NOT allergic to PCN-- took w/o SE 07/05 Medical History Diverticulitis 06/2017, 11/2017 Medical History cystic mass pancreas 12/07 Surgical History cholecystectomy 06/22 Surgical History No personal or FHx of severe reaction to anesthesia Surgical History EGD 12/19, 08/24, 09/02 Surgical History colonoscopies--nl 2007 Surgical History rt total hip replacement--S [place]-- does NOT need predental prophylaxis 07/2011 Surgical History Left eye cataract- Dr. Lyle 10/2016 Hospitalization History left [facility] 07/2011 Hospitalization History urinary tract infection 12/05 Goals Section No Information Health Concerns No Information MEDICAL EQUIPMENT No Information MENTAL STATUS No Information FUNCTIONAL STATUS No Information ASSESSMENTS Encounter Date Diagnosis Assessment Notes Treatment Notes Treatm ent Clinical Notes Feb, Cystic mass of pancreas (ICD-10 - K86.2) has EUS planned at [facility]. Pt frustrated, support offered. Wt is stable. Feb, Hypertensive heart disease without heart failure (ICD-10 - I11.9) Per JNC 8 guidelines, goal BP < 140/90 (150/90 if age >60), is meeting goal on current regimen. Advised heart-healthy diet, sodium restriction Feb, Chronic obstructive pulmonar y disease, unspecified (ICD-10 - J44.9) Feb, Diverticulosis of intestine, part unspecified, without perforation or abscess without bleeding (ICD-10 - K57.90) Feb, Recurrent UTI (ICD-10 - N39.0) PLAN OF TREATMENT Treatment Notes Assessment Notes Clinical Notes Cystic mass of pancreas has EUS planned at [facility].Pt frustrated, support offered. Wt is stable. Hypertensive heart disease without heart failure Per JNC 8 guidelines, goal BP < 140/90 (150/90 if age >60), is meeting goal on current regimen. Advised heart- healthy diet, sodium restriction Treatment Notes Test Name Order Date 'LAB ONLY' UA URINALYSIS MANUAL (Not Orderable) 03-11 Next Appt Details 3 Months MAW Reason: Provider Name:Samuel Dante, 2020-05 02:00:00 PM, [address], [place], [address], Insurance Providers Payer Name Payer Address Payer Phone Insured Name Patient Relati onship to Insured Coverage Start Date Coverage End Date MEDICARE Part A and B [address] [facility] [address] [phone] JOSE GALLEGOS [facility] [address] [id number] [facility] [phone] JOSE GALLEGOS self
--- OUTSIDE RECORDS SUMMARY | 2020-04-07 06:56 | CCD | Continuity of Care Document ---
Author Author Briseyda LARES M.D. Organization Unknown Address [address] [place] [address] Phone [phone] Care Team Providers Care Arm Rest Builder Name Role Phone Samuel Howell M.D. AUTM [phone] Vilma Lewis M.D. AUTM [phone] Problems Active Problems Provider Date Dysphagia Morgan Lares M.D. Onset: 08/29/19 19 Abdominal pain Morgan Lares M.D. Onset: 08/11/19 16 Social History Type Date Description Comments Sex Unknown ETOH Use Occasionally Tobacco Use Start: Unknown End: Unknown Patient is a former smoker Allergies, Adverse Reactions, Alerts Active Allergies Reaction Severity Comments Date Sulfa Antibiotics 08/16/2016 Erythromycin 08/16/2016 Macrobid 08/16/2016 Cipro 08/16/2016 Acetagolamide 08/28/2018 Methazolamide 08/28/2018 Nitrofurantoin 08/28/2018 Thiazide-Type Diuretics 08/18 Medications Active Medications SIG Qnty Indications Ordering Provide r Date Spiriva Respimat 2.5mcg/Act Aerosol Samuel Howell M.D. Multiple Vitamin Tablets Unknown Aspirin 81mg Tablets DR Unknown Fish Oil 1000mg Capsules 1 by mouth every day Unknown Ibuprofen 600mg Tablets Unknown Amlodipine Besylate 5mg Tablets Alice Edwards RPA Bacid Capsules Samuel Howell M.D. Immunizations Description No Information Available Vital Signs Date Vital Result Comment 01/05/2020 2:36pm Height 64 inches 5'4" Weight 141.00 lb BP Systolic 136 mmHg BP Diastolic 84 mmHg Heart Rate 66 /min BMI (Body Mass Index) 24.2 kg/m2 Weight 63.958 kg Body Temperature 97.2 F 08/28/2018 9:51am Height 64 inches 5'4" Weight 141.00 lb BP Systolic 146 mmHg BP Diastolic 86 mmHg Heart Rate 66 /min BMI (Body Mass Index) 24.2 kg/m2 Weight 63.958 kg Results Description No Information Available Procedures Description No Information Available Medical Devices Description No Information Available Encounters Type Date Location Provider Dx Diagnosis Office Visit 01/05/2020 2:15p Main Office Morgan Lares M.D. R 93.89 Abnormal findings on dx imaging of oth body structures Assessments Date Code Description Provider 01/05/2020 R93.89 Radiology result abnormal Morgan Lares M.D. Plan of Treatment 01/05/2020 - Morgan Lares M.D.* R93.89 Radiology result abnormal* Comments:* 84 yo wf who presents for a h/o an abnormal abdominal ct/mri. These scans show 2 cystic areas of the head/tail of the pancreas. No c/o abdominal pain, weight loss, change in bowel habits, or rectal bleeding. No family h/o colon cancer. No h/o chest pain, or sob. Labs are all normal. No anemia.Plan:1. Refer to [facility] for EUS.2. Office after test results. Functional Status Description No Information Available Mental Status Description No Information Available Referrals Description No Information Available
--- OUTSIDE RECORDS SUMMARY | 2020-04-07 06:56 | CCD | Continuity of Care Document ---
Author Author Briseyda LARES M.D. Organization Unknown Address [address] [place] [address] Phone [phone] Care Team Providers Care Commercial Sheet Metal Foreman Name Role Phone Samuel Howell M.D. AUTM [phone] Vilma Lewis M.D. AUTM [phone] Problems Active Problems Provider Date Dysphagia Morgan [...] Medical Devices Description No Information Available Encounters Description No Information Available Assessments Date Code Description Provider 01/05/2020 R93.89 [...] are all normal. No anemia.Plan:1. Refer to [place] for EUS.2. Office after test results. Functional Status Description No Information Available Mental Status Description No Information Available Referrals Description No Information Available
--- OUTSIDE RECORDS SUMMARY | 2020-04-07 06:56 | CCD | Continuity of Care Document ---
Author Author [facility] Organization [facility] Address Unknown Phone Unavailable Care Team Providers Care Knife Sharpener Name Role Phone Harmony Del Rosario MD Unavailable Unavailable Allergies, Adverse Reactions, Alerts Substance Reaction Status Criticality CIPROFLOXACIN HCL Active No Information ciprofloxacin Active No Information Sulfa (Sulfonamide Antibiotics) Active No Information Penicillins Active No Information erythromycin base Active No Information Medications Medication Instructions Dosage Effective Dates (start - stop) Sta tus Comments amlodipine 5 mg tablet take 1 tablet by oral route every day 5 MG - Active Bacid 1 billion cell-250 mg tablet - A ctive aspirin 81 mg tablet,delayed release take 1 tablet by oral r oute every day 81 MG - Active Zantac 150 mg tablet take 1 tablet by oral route every day - Active FISH OIL (unknown strength) take 1 by Oral route once Not Available - Active BIOTIN (unknown strength) Not Available - Active ibuprofen 200 mg tablet take 1 Tablet by oral route every 8 hours as needed with food 200 MG - Active multivitamin tablet take 1 tablet by oral route every day with nehemiah d - Active Spiriva with HandiHaler 18 mcg and inhalation capsules inhale 1 capsule by inhalation route every day - Active Problems Condition Type Effective Dates (start - stop) Clinical S tatus Comments Other specified abnormal findings of blood chemistry D iagnosis interpretation (observable entity) Dry eye syndrome of lacrimal gland Diagnosis interpretation (observable entity) Other specified abnormal findings of blood chemistry D iagnosis interpretation (observable entity) Dry eye syndrome of lacrimal gland Diagnosis interpretation (observable entity) Dry mouth Diagnosis interpretation (observable entity) Pneumonia Problem (finding) Active Osteoarthritis Problem (finding) Active GERD Problem (finding) Active Emphysema Problem (finding) Active Colitis Problem (finding) Active High Blood Pressure Problem (finding) Active Procedures Procedure Date No Information Results Test Name Date and Time Measure Units Reference Range Abnormal Flag St atus Comments No Information Advance Directives Directive Yes / No Effective Date File Name No Information Encounters Encounter Description Practice Location Reason(s) For Visit Diagnose s Date Provider Providers Copied on Encounter [facility], [address] [place] [address], [id number], tel:[phone] [facility] No Information Carin Antunez. [address] [place] [address], [id number], [place]. tel:[phone] [facility], [address] [place] [address], [id number], [place] tel:[phone] [facility] Other specified abnormal findings of blood chemistryDry eye syndrome of lacrimal gland Sushma Irving. [address] [place] [address], [id number], . tel:[phone] Consulting Provider: Tyrone Reyna, [address], [address]. tel:[phone] [place]: [place], [address], [place], [address]. tel:[phone] [facility], [address] [place] [address], [id number], [place] tel:[phone] [facility] Other specified abnormal findings of blood chemistryDry eye syndrome of lacrimal glandDry mouth Sushma Irving. [address] [place] [address], [id number], [place]. tel:[phone] Consulting Provider: Tyrone Reyna, [address] [address], [place], [address]. tel:[phone] [place]: [place], [address] [place], [address]. tel:[phone] Family History Family Member Type Diagnosis Age At Onset Sister Problem (finding) Osteoarthritis Immunizations Vaccine Date Status Comments Influenza, injectable, quadrivalent, spl it virus, 18 years or older Afluria Quad administered Note: Invalid docume nted admin date was . ; Source: Other Provider pneumococcal polysaccharide vaccine, 23 valent a dministered Note: Invalid documented admin date was . ; Source: Other Provider Payers Payer name Insurance type Covered green party ID Authorization(s ) Medicare MB [id number] [facility] [id number] Social History Type Description Quantity Date Captured Comments Sex Female Smoking Status No Information Vital Signs Date / Time: Height Weight BMI Pulse Rate Blood Pressure Temperatu re Respiratory Rate Body Surface Area Head Circumference BMI percentile Pulse Ox In haled Ox No Information Chief Complaint And Reason For Visit No Information Reason For Referral Reason For Referral No Information Plan Of Treatment Date Type Action Status No Information History Of Present Illness Encounter Date Complaint History Of Present I llness No Information Functional Status Date Functional Assessment No Information Medications Administered Medication Instructions Dosage Effective Dates (start - stop) Sta tus Comments No Information Instructions Date Instruction Additional Informati on No Information Physical Examination Exam Findings Details No Information
--- OUTSIDE RECORDS SUMMARY | 2020-04-07 06:57 | CCD ---
Author Author [facility] Organization [facility] Address Unknown Phone Unavailable Care Team Providers Care Computer Repair Technician Name Role Phone Ba Lares MD Unavailable Unavailable Ba Lares MD Unavailable Unavailable Ba Lares MD Unavailable Unavailable Ba Lares MD Unavailable Unavailable Ba Lares MD Unavailable Unavailable Ba Lares MD Unavailable Unavailable Ba Lares MD Unavailable Unavailable Ba Lares MD Unavailable Unavailable Ba Lares MD Unavailable Unavailable Ba Lares MD Unavailable Unavailable Ba Lares MD Unavailable Unavailable Ba Lares MD Unavailable Unavailable Ba Lares MD Unavailable Unavailable Ba Lares MD Unavailable Unavailable Ba Lares MD Unavailable Unavailable Ba Lares MD Unavailable Unavailable Ba Lares MD Unavailable Unavailable Ba Lares MD Unavailable Unavailable Ba Lares MD Unavailable Unavailable Ba Lares MD Unavailable Unavailable Ba Lares MD Unavailable Unavailable Ba Lares MD Unavailable Unavailable Ba Lares MD Unavailable Unavailable Ba Lares MD Unavailable Unavailable Ba Lares MD Unavailable Unavailable Ba Lares MD Unavailable Unavailable Ba Lares MD Unavailable Unavailable Ba Lares MD Unavailable Unavailable Ba Lares MD Unavailable Unavailable Ba Lares MD Unavailable Unavailable Ba Lares MD Unavailable Unavailable Ba Lares MD Unavailable Unavailable Ba Lares MD Unavailable Unavailable aB Lares MD Unavailable Unavailable Ba Lares MD Unavailable Unavailable Ba Lares MD Unavailable Unavailable Ba Lares MD Unavailable Unavailable Ba Lares MD Unavailable Unavailable Ba Lares MD Unavailable Unavailable Ba Lares MD Unavailable Unavailable Ba Lares MD Unavailable Unavailable aB Lares MD Unavailable Unavailable aB Lares MD Unavailable Unavailable Ba Lares MD Unavailable Unavailable Ba Lares MD Unavailable Unavailable Ba Lares MD Unavailable Unavailable Ba Lares MD Unavailable Unavailable Ba Lares MD Unavailable Unavailable Ba Lares MD Unavailable Unavailable Ba Lares MD Unavailable Unavailable Braeden SIMMONS Unavailable Unavailable Braeden SIMMONS Unavailable Unavailable Braeden SIMMONS Unavailable Unavailable CINDI VILLARREAL MD Unavailable Unavailable CINDI VILLARREAL MD Unavailable Unavailable CINDI VILLARREAL MD Unavailable Unavailable CINDI VILLARREAL MD Unavailable Unavailable CINDI VILLARREAL MD Unavailable Unavailable CINDI VILLARREAL MD Unavailable Unavailable CINDI VILLARREAL MD Unavailable Unavailable CINDI VILLARREAL MD Unavailable Unavailable CINDI VILLARREAL MD Unavailable Unavailable CINDI VILLARREAL MD Unavailable Unavailable CINDI VILLARREAL MD Unavailable Unavailable CINDI VILLARREAL MD Unavailable Unavailable CINDI VILLARREAL MD Unavailable Unavailable CINDI VILLARREAL MD Unavailable Unavailable CINDI VILLARREAL MD Unavailable Unavailable CINDI VILLARREAL MD Unavailable Unavailable CINDI VILLARREAL MD Unavailable Unavailable CINDI VILLARREAL MD Unavailable Unavailable CINDI VILLARREAL MD Unavailable Unavailable CINDI VILLARREAL MD Unavailable Unavailable CINDI VILLARREAL MD Unavailable Unavailable CINDI VILLARREAL MD Unavailable Unavailable CINDI VILLARREAL MD Unavailable Unavailable CINDI VILLARREAL MD Unavailable Unavailable CINDI VILLARREAL MD Unavailable Unavailable KHAIRALLAH, RAMZI MD Unavailable Unavailable KHAIRALLAH, RAMZI MD Unavailable Unavailable KHAIRALLAH, RAMZI MD Unavailable Unavailable KHAIRALLAH, RAMZI MD Unavailable Unavailable KHAIRALLAH, RAMZI MD Unavailable Unavailable KHAIRALLAH, RAMZI MD Unavailable Unavailable KHAIRALLAH, RAMZI MD Unavailable Unavailable KHAIRALLAH, RAMZI MD Unavailable Unavailable KHAIRALLAH, RAMZI MD Unavailable Unavailable KHAIRALLAH, RAMZI MD Unavailable Unavailable KHAIRALLAH, RAMZI MD Unavailable Unavailable KHAIRALLAH, RAMZI MD Unavailable Unavailable KHAIRALLAH, RAMZI MD Unavailable Unavailable KHAIRALLAH, RAMZI MD Unavailable Unavailable KHAIRALLAH, RAMZI MD Unavailable Unavailable KHAIRALLAH, RAMZI MD Unavailable Unavailable KHAIRALLAH, RAMZI MD Unavailable Unavailable KHAIRALLAH, RAMZI MD Unavailable Unavailable KHAIRALLAH, RAMZI MD Unavailable Unavailable KHAIRALLAH, RAMZI MD Unavailable Unavailable KHAIRALLAH, RAMZI MD Unavailable Unavailable KHAIRALLAH, RAMZI MD Unavailable Unavailable KHAIRALLAH, RAMZI MD Unavailable Unavailable KHAIRALLAH, RAMZI MD Unavailable Unavailable KHAIRALLAH, RAMZI MD Unavailable Unavailable KHAIRALLAH, RAMZI MD Unavailable Unavailable KHAIRALLAH, RAMZI MD Unavailable Unavailable KHAIRALLAH, RAMZI MD Unavailable Unavailable KHAIRALLAH, RAMZI MD Unavailable Unavailable KHAIRALLAH, RAMZI MD Unavailable Unavailable KHAIRALLAH, RAMZI MD Unavailable Unavailable KHAIRALLAH, RAMZI MD Unavailable Unavailable KHAIRALLAH, RAMZI MD Unavailable Unavailable KHAIRALLAH, RAMZI MD Unavailable Unavailable KHAIRALLAH, RAMZI MD Unavailable Unavailable KHAIRALLAH, RAMZI MD Unavailable Unavailable KHAIRALLAH, RAMZI MD Unavailable Unavailable KHAIRALLAH, RAMZI MD Unavailable Unavailable KHAIRALLAH, RAMZI MD Unavailable Unavailable KHAIRALLAH, RAMZI MD Unavailable Unavailable KHAIRALLAH, RAMZI MD Unavailable Unavailable KHAIRALLAH, RAMZI MD Unavailable Unavailable KHAIRALLAH, RAMZI MD Unavailable Unavailable KHAIRALLAH, RAMZI MD Unavailable Unavailable KHAIRALLAH, RAMZI MD Unavailable Unavailable KHAIRALLAH, RAMZI MD Unavailable Unavailable KHAIRALLAH, RAMZI MD Unavailable Unavailable KHAIRALLAH, RAMZI MD Unavailable Unavailable KHAIRALLAH, RAMZI MD Unavailable Unavailable KHAIRALLAH, RAMZI MD Unavailable Unavailable KHAIRALLAH, RAMZI MD Unavailable Unavailable KHAIRALLAH, RAMZI MD Unavailable Unavailable KHAIRALLAH, RAMZI MD Unavailable Unavailable KHAIRALLAH, RAMZI MD Unavailable Unavailable KHAIRALLAH, RAMZI MD Unavailable Unavailable KHAIRALLAH, RAMZI MD Unavailable Unavailable KHAIRALLAH, RAMZI MD Unavailable Unavailable KHAIRALLAH, RAMZI MD Unavailable Unavailable KHAIRALLAH, RAMZI MD Unavailable Unavailable KHAIRALLAH, RAMZI MD Unavailable Unavailable KHAIRALLAH, RAMZI MD Unavailable Unavailable Scozzari, K Maria Fernanda PA Unavailable Unavailable Scozzari, K Maria Fernanda PA Unavailable Unavailable Scozzari, K Maria Fernanda PA Unavailable Unavailable Scozzari, K Maria Fernanda PA Unavailable Unavailable Scozzari, K Maria Fernanda PA Unavailable Unavailable Scozzari, K Maria Fernanda PA Unavailable Unavailable Scozzari, K Maria Fernanda PA Unavailable Unavailable Scozzari, K Maria Fernanda PA Unavailable Unavailable Scozzari, K Maria Fernanda PA Unavailable Unavailable Scozzari, K Maria Fernanda PA Unavailable Unavailable Scozzari, K Maria Fernanda PA Unavailable Unavailable Scozzari, K Maria Fernanda PA Unavailable Unavailable Scozzari, K Maria Fernanda PA Unavailable Unavailable Scozzari, K Maria Fernanda PA Unavailable Unavailable Scozzari, K Maria Fernanda PA Unavailable Unavailable Scozzari, K Maria Fernanda PA Unavailable Unavailable Scozzari, K Maria Fernanda PA Unavailable Unavailable Scozzari, K Maria Fernanda PA Unavailable Unavailable Scozzari, K Maria Fernanda PA Unavailable Unavailable Scozzari, K Maria Fernanda PA Unavailable Unavailable Scozzari, K Maria Fernanda PA Unavailable Unavailable Scozzari, K Maria Fernanda PA Unavailable Unavailable Scozzari, K Maria Fernanda PA Unavailable Unavailable Scozzari, K Maria Fernanda PA Unavailable Unavailable Scozzari, K Maria Fernanda PA Unavailable Unavailable Scozzari, K Maria Fernanda PA Unavailable Unavailable Scozzari, K Maria Fernanda PA Unavailable Unavailable Scozzari, K Maria Fernanda PA Unavailable Unavailable Scozzari, K Maria Fernanda PA Unavailable Unavailable Scozzari, K Maria Fernanda PA Unavailable Unavailable Scozzari, K Maria Fernanda PA Unavailable Unavailable Scozzari, K Maria Fernanda PA Unavailable Unavailable Scozzari, K Maria Fernanda PA Unavailable Unavailable Scozzari, K Maria Fernanda PA Unavailable Unavailable Scozzari, K Maria Fernanda PA Unavailable Unavailable Scozzari, K Maria Fernanda PA Unavailable Unavailable Scozzari, K Maria Fernanda PA Unavailable Unavailable Scozzari, K Maria Fernanda PA Unavailable Unavailable Scozzari, K Maria Fernanda PA Unavailable Unavailable Scozzari, K Maria Fernanda PA Unavailable Unavailable Scozzari, K Maria Fernanda PA Unavailable Unavailable Scozzari, K Maria Fernanda PA Unavailable Unavailable Scozzari, K Maria Fernanda PA Unavailable Unavailable Scozzari, K Maria Fernanda PA Unavailable Unavailable Scozzari, K Maria Fernanda PA Unavailable Unavailable Scozzari, K Maria Fernanda PA Unavailable Unavailable Campanaro, Mare Mariana PA Unavailable Unavailable Campanaro, Mare Mariana PA Unavailable Unavailable Campanaro, Mare Mariana PA Unavailable Unavailable Campanaro, Mare Mariana PA Unavailable Unavailable Campanaro, Mare Mariana PA Unavailable Unavailable Campanaro, Mare Mariana PA Unavailable Unavailable Campanaro, Mare Mariana PA Unavailable Unavailable Campanaro, Mare Mariana PA Unavailable Unavailable Campanaro, Mare Mariana PA Unavailable Unavailable Campanaro, Mare Mariana PA Unavailable Unavailable Campanaro, Mare Mariana PA Unavailable Unavailable Campanaro, Mare Mariana PA Unavailable Unavailable Campanaro, Mare Mariana PA Unavailable Unavailable Campanaro, Mare Mariana PA Unavailable Unavailable Campanaro, Mare Mariana PA Unavailable Unavailable Campanaro, Mare Mariana PA Unavailable Unavailable Campanaro, Mare Mariana PA Unavailable Unavailable Campanaro, Mare Mariana PA Unavailable Unavailable MansiterSamuel richards MD Unavailable Unavailable WetterSamuel richards MD Unavailable Unavailable MansiterSamuel richards MD Unavailable Unavailable MansiterSamuel richards MD Unavailable Unavailable MansiterSamuel richards MD Unavailable Unavailable MansiterSamuel richards MD Unavailable Unavailable MansiterSamuel richards MD Unavailable Unavailable MansiterSamuel richards MD Unavailable Unavailable WetterhaSamuel ramos MD Unavailable Unavailable MansiterSamuel richards MD Unavailable Unavailable WetterSamuel richards MD Unavailable Unavailable WetterSamuel richards MD Unavailable Unavailable WetterSamuel richards MD Unavailable Unavailable WetterSamuel richards MD Unavailable Unavailable WetterSamuel richards MD Unavailable Unavailable WetterSamuel richards MD Unavailable Unavailable WetterhaSamuel ramos MD Unavailable Unavailable WetterhaSamuel ramos MD Unavailable Unavailable WetterhaSamuel ramos MD Unavailable Unavailable WetterhaSamuel ramos MD Unavailable Unavailable MansiterhaSamuel ramos MD Unavailable Unavailable MansiterhaSamuel ramos MD Unavailable Unavailable WetterhaSamuel ramos MD Unavailable Unavailable WetterhaSamuel ramos MD Unavailable Unavailable WetterhaSamuel ramos MD Unavailable Unavailable WetterhaSamuel ramos MD Unavailable Unavailable WetterhaSamuel ramos MD Unavailable Unavailable Wetterhahn, Samuel PARKS Unavailable Unavailable Wetterhahn, Samuel PARKS Unavailable Unavailable Wetterhahn, Samuel PARKS Unavailable Unavailable Wetterhahn, Samuel PARKS Unavailable Unavailable Wetterhahn, Samuel PARKS Unavailable Unavailable Wetterhahn, Samuel PARKS Unavailable Unavailable Wetterhahn, Samuel PARKS Unavailable Unavailable Wetterhahn, Samuel PARKS Unavailable Unavailable Wetterhahn, Samuel PARKS Unavailable Unavailable Wetterhahn, Samuel PARKS Unavailable Unavailable Wetterhahn, Samuel PARKS Unavailable Unavailable Wetterhahn, Samuel MD Unavailable Unavailable Wetterhahn, Samuel MD Unavailable Unavailable Wetterhahn, Samuel MD Unavailable Unavailable Wetterhahn, Samuel PARKS Unavailable Unavailable Wetterhahn, Samuel PARKS Unavailable Unavailable Wetterhahn, Samuel PARKS Unavailable Unavailable Wetterhahn, Samuel PARKS Unavailable Unavailable Wetterhahn, Samuel MD Unavailable Unavailable Wetterhahn, Samuel MD Unavailable Unavailable Wetterhahn, Samuel PARKS Unavailable Unavailable Wetterhahn, Samuel PARKS Unavailable Unavailable Wetterhahn, Samuel PARKS Unavailable Unavailable Wetterhahn, Samuel PARKS Unavailable Unavailable Wetterhahn, Samuel PARKS Unavailable Unavailable Wetterhahn, Samuel PARKS Unavailable Unavailable Wetterhahn, Samuel PARKS Unavailable Unavailable Wetterhahn, Samuel PARKS Unavailable Unavailable Wetterhahn, Samuel PARKS Unavailable Unavailable Wetterhahn, Samuel PARKS Unavailable Unavailable Wetterhahn, Samuel PARKS Unavailable Unavailable Wetterhahn, Samuel PARKS Unavailable Unavailable Wetterhahn, Samuel MD Unavailable Unavailable Wetterhahn, Samuel PARKS Unavailable Unavailable Wetterhahn, Samuel PARKS Unavailable Unavailable Wetterhahn, Samuel PARKS Unavailable Unavailable Wetterhahn, Samuel PARKS Unavailable Unavailable Wetterhahn, Samuel PARKS Unavailable Unavailable Wetterhahn, Samuel PARKS Unavailable Unavailable Wetterhahn, Samuel PARKS Unavailable Unavailable Re-disclosure Warning The records that you are about to access may contain information from federally-assisted alcohol or drug abuse programs. If such information is present, then the following federally mandated warning applies: This information has been disclosed to you from records protected by federal confidentiality rules (42 CFR part 2). The federal rules prohibit you from making any further disclosure of this information unless further disclosure is expressly permitted by the written consent of the person to whom it pertains or as otherwise permitted by 42 CFR part 2. A general authorization for the release of medical or other information is NOT sufficient for this purpose. The Federal rules restrict any use of the information to criminally investigate or prosecute any alcohol or drug abuse patient.The records that you are about to access may contain highly sensitive health information, the redisclosure of which is protected by Article 27-F of the [facility] Public Health law. If you continue you may have access to information: Regarding HIV / AIDS; Provided by facilities licensed or operated by the [facility] Office of Mental Health; or Provided by the [facility] Office for People With Developmental Disabilities. If such information is present, then the following [facility] mandated warning applies: This information has been disclosed to you from confidential records which are protected by state law. State law prohibits you from making any further disclosure of this information without the specific written consent of the person to whom it pertains, or as otherwise permitted by law. Any unauthorized further disclosure in violation of state law may result in a fine or intermediate sentence or both. A general authorization for the release of medical or other information is NOT sufficient authorization for further disc losure. Allergies and Adverse Reactions Type Description Substance Reaction Status Data Source(s ) Drug Class THIAZIDE-TYPE DIURETICS THIAZIDE-TYPE DIURETICS [facility] Drug Class SULFA ANTIBIOTICS SULFA ANTIBIOTICS [facility] OTHER OTHER [facility] DRUG INGREDI METHAZOLAMIDE METHAZOLAMIDE [facility] DRUG INGREDI NITROFURANTOIN NITROFURANTOIN [facility] DRUG INGREDI ERYTHROMYCIN ERYTHROMYCIN [facility] Drug allergy CIPROFLOXACIN HCL CIPROFLOXACIN HCL [facility] nitrates nitrates nitrates hives, tongue swelled Active eC W1 ([facility]) Cefnidir Cefnidir Cefnidir c diff colitis 02/02 Active eCW 1 ([facility]) Cipro Cipro Cipro nightmares, felt depressed Active eCW1 ([facility]) Combivent Combivent Combivent shakey, insomnia Active eCW1 ([facility]) nitrofurantoin nitrofurantoin Nitrofurantoin 5 MG/ML Oral Susp ension hives, tongue swelling Active eCW1 ([facility]) sulfa sulfa sulfa Hives Active eCW1 ([facility]) PPIs/omeprazole PPIs/omeprazole PPIs/omeprazole hx c diff colitis, severe Active eCW1 ([facility]) Family History Family Member Name Family Member Gender Family Member Status Date o f Status Description Data Source(s) Unknown Female Problem (finding) 07/05/2017 12:00:00 AM EDT NextGen ([facility]) Unknown Female Problem MEDENT ([facility]) Unknown Unknown Problem MEDENT ([facility]) Unknown Unknown Problem MEDENT ([facility]) Encounters Encounter Providers Location Date Indications Data Source(s ) Office Visit, Est Pt., Level 3 PC [address] [place] [address] 03/04/2020 12:00:00 AM EST eCW1 ([facility]) Attender: CINDI VILLARREAL MD [facility] 03/01/2020 07:06:00 PM EST - 03/01/2020 07:06:00 PM EST NextGen ( [facility]) Outpatient Attender: SENIA CORTES 02/08/2020 12:00:00 AM [facility] Outpatient Attender: Morgan Lares MD Main Office 01/05/2020 01:15:00 PM EST MEDENT ([facility]) Outpatient [address] [facility], [facility] [address] 12/25/2019 12:00:00 AM EST eCW1 [facility]) Unknown [address] [facility], [facility] [address] 12/04/2019 12:00:00 AM EDT eCW1 ([facility]) Unknown [address] [facility] [address] 12/04/2019 12:00:00 AM EDT eCW1 ([facility]) Unknown [address] [facility] [place] [address] 12/04/2019 12:00:00 AM EDT eCW1 ([facility]) Office Visit, Est Pt., Level 3 PC [address] [place] [address] 11/27/2019 12:00:00 AM EDT eCW1 ([facility]) Unknown [address] [facility] [address] 11/27/2019 12:00:00 AM EDT eCW1 ([facility] Unknown [address] [facility] [place] [address] 11/24/2019 12:00:00 AM EDT eCW1 ([facility]) Outpatient Attender: Mariana taylor 10/27/2019 04:45:00 PM EDT MEDENT ([facility]) Unknown [address] [facility] [place] [address] 09/08/2019 12:00:00 AM EDT [facility]CW1 [facility] Outpatient [address] [facility] [place] [address] 09/04/2019 12:00:00 AM EDT eCW1 ([facility]) Unknown [address] [facility] [place] [address] 09/03/2019 12:00:00 AM EDT eCW1 ([facility]) Unknown [address] [facility] [place] [address] 09/01/2019 12:00:00 AM EDT eCW1 ([facility]) Recurring Patient Referrer: Samuel Howell MD 0 10:20:50 AM EDT [facility] Unknown [address] [facility] [place] [address] 08/10/2019 12:00:00 AM EDT [facility]CW1 ([facility]) Unknown [address] [facility] [place] [address] 07/28/2019 12:00:00 AM EDT eCW1 ([facility]) Outpatient Attender: Maria Fernanda Arcos PAReferrer: Samuel milligan MD 07/21/2019 01:11:50 PM EDT [facility] Recurring Patient Referrer: Samuel Howell MD 0 10:47:37 AM EDT [facility] [place] [address] [facility] [place] [address] 05/01/2019 12:00:00 AM EDT eCW1 ([facility]) [facility] [place] [address] [facility] [address] 04/28/2019 12:00:00 AM EDT eCW1 ([facility]) 04/27/2019 12:42:00 PM EDT - 020 12:42:00 PM EDT NextGen ([facility]) [facility] [place] [address] [facility] [address] 03/09/2019 12:00:00 AM EST eCW1 ([facility]) [facility] [place] [address] [facility] [address] 02/16/2019 12:00:00 AM EST eCW1 ([facility]) Immunizations Vaccine Date Status Description Data Source(s) COVID-19 VACCINE, [id number], LNP-S (MODERNA)/PF 03/25/2020 1 2:00:00 AM EST [facility] Medications Medication Brand Name Start Date Product Form Dose Route Admi nistrative Instructions Pharmacy Instructions Status Indications Reaction Description Data Source(s) Mupirocin 0.02 MG/MG Topical Ointment Mupirocin 10/27/2019 12:00:00 AM EDT active MEDENT ([facility]) Cephalexin 250 MG Oral Capsule [Keflex] Keflex 250 MG Keflex 250 MG 09/08/2019 12:00:00 AM EDT 1.0 {capsule} active K eflex 250 MG eCW1 ([facility]) Cephalexin 250 MG Oral Capsule [Keflex] Keflex 250 MG Keflex 250 MG 09/08/2019 12:00:00 AM EDT 1.0 {capsule} active K eflex 250 MG eCW1 ([facility]) Cephalexin 250 MG Oral Capsule [Keflex] Keflex 250 MG Keflex 250 MG 09/08/2019 12:00:00 AM EDT 1.0 {capsule} suspended Keflex 250 MG eCW1 ([facility]) Cephalexin 250 MG Oral Capsule [Keflex] Keflex 250 MG Keflex 250 MG 09/08/2019 12:00:00 AM EDT 1.0 {capsule} suspended Keflex 250 MG eCW1 ([facility]) Cephalexin 250 MG Oral Capsule [Keflex] Keflex 250 MG Keflex 250 MG 09/08/2019 12:00:00 AM EDT 1.0 {capsule} suspended Keflex 250 MG eCW1 ([facility]) Cephalexin 250 MG Oral Capsule [Keflex] Keflex 250 MG Keflex 250 MG 09/08/2019 12:00:00 AM EDT 1.0 {capsule} suspended Keflex 250 MG eCW1 ([facility]) Cephalexin 250 MG Oral Capsule [Keflex] Keflex 250 MG Keflex 250 MG 09/08/2019 12:00:00 AM EDT 1.0 {capsule} suspended Keflex 250 MG eCW1 ([facility]) Cephalexin 250 MG Oral Capsule [Keflex] Keflex 250 MG Keflex 250 MG 09/08/2019 12:00:00 AM EDT 1.0 {capsule} suspended Keflex 250 MG eCW1 ([facility]) Cephalexin 250 MG Oral Capsule [Keflex] Keflex 250 MG Keflex 250 MG 09/08/2019 12:00:00 AM EDT 1.0 {capsule} suspended Keflex 250 MG eCW1 ([facility]) Cephalexin 250 MG Oral Capsule [Keflex] Keflex 250 MG Keflex 250 MG 09/08/2019 12:00:00 AM EDT 1.0 {capsule} suspended Keflex 250 MG eCW1 ([facility]) Insurance Providers Payer name Policy type / Coverage type Policy ID Covered republican ID Covered republican's relationship to [place] Policy [place] Plan Information MEDICARE [id number] SP [id number] [facility] [id number] SP [id number] [facility] [id number] SP [id number] R U [id number] Self [id number] MEDICARE A [id number] Self [id number] UMR O [id number] S [id number] MEDICARE C [id number] S [id number] [id number] UMR F [id number] SELF [id number] 400 DME Jurisdiction A NHIC C [id number] SELF [id number] Medicare C [id number] SELF [id number] [id number] R F [id number] SELF [id number] MEDICARE [id number] SP [id number] A MEDICARE [id number] SP [id number] [id number] Umr Medigap Part B [id number] Self [id number] Medicare [place] Primary [id number] Self [id number] ANSI-Commercial [id number] ANSI-Commercial [id number] ANSI-Medicare Part B [id number] ANSI-Commercial [id number] ANSI-Medicare Part B [id number] ANSI-Commercial [id number] MEDICARE [id number] SP [id number] A [facility] [id number] SP [id number] ANSI-Commercial [id number] ANSI-Commercial [id number] ANSI-Medicare Part B [id number] ANSI-Commercial [id number] ANSI-Commercial [id number] ANSI-Medicare Part B [id number] ANSI-Commercial [id number] ANSI-Medicare Part B [id number] [id number]-37ix-29i1-39kz-68sjz7c9oo3u ANSI-Commercial [id number]-[id number] [id number]-[id number] ANSI-Commercial 4fq648v6-1448-249m-82r9-623j9jp353hm 0xa156u5-7823-324e-24j3-600l2gz244xy ANSI-Commercial o6y9av12-65m8-7x4d-2291-38s1x7880b6o v1x4mz14-64h3-2j2g-5513-56c6m4915j3x ANSI-Medicare Part B [id number] [id number]-8uvn-lpf0-9c785ujk4d36 ANSI-Medicare Part B [id number] 22kzd3y6-6oq2-2x97-5c03-5tlkbqnhgc2z ANSI-Commercial [id number]-d182-a58077eo881b [id number]-u583-74xu-w404-k98052ry245j ANSI-Commercial zi9500i9-9953-21lb-p939-k576g54213i7 rf0871t4-2736-60uw-d181-o175r43198a2 ANSI-Medicare Part B [id number] [id number]-18os-0139-3o2x-8b102m08vg89 ANSI-Commercial kpfu877t-5xfz-6a44-qee3-04p32826hao0 pazs429j-7gwr-4p53-ova8-84s46507nmu6 ANSI-Commercial m89q1m06-to52-3928-qy96-8kikb234l74f v50v2a72-te10-7016-al78-1fkph465c45k [facility] [id number] ANSI-Medicare Part B [id number] [id number]-9976-62z4-831ohk0597e5 ANSI-Commercial 4136o470-8j9p-544k-uy24-06370b9n9100 6474f987-5b3k-348f-po85-45473i7u6293 ANSI-Commercial 8y2334q5-x02c-4jg2-qn66-8za93k49g0i8 1n9432e5-v10l-9sx9-ht50-7hi59u99w0o2 ANSI-Commercial 78h84079-9241-8fwz-0044-0201j196lah1 [id number]-7681-4662k903rql5 ANSI-Medicare Part B [id number]-lai5-[id number] [id number]-nsm0-wt915c9six3a ANSI-Commercial 83m1y786-87uc-8h72-j7y0-vuc4112rh0n1 25y1m284-64jt-9c93-t2a8-wbf7726vo6p2 ANSI-Medicare Part B [id number] [id number]-9451-8k32716c9i23 ANSI-Commercial 25698x60-8148-195y-k22j-627l42k9542g 96284a43-0615-899b-d42v-891c31i5552i ANSI-Commercial h0s02sk2-y479-3u23-rt5i-278695943bo4 d3r71yo2-o232-8v61-ws7x-719629845jl1 ANSI-Commercial 6w79xg47-5464-30k9-t7e1-c701253dm6d1 3v02oz30-5921-14x1-g0m6-n132786or0z3 ANSI-Medicare Part B [id number] mdf93iwg-0b4s-69l5-926u-kdk2p0e1684i ANSI-Commercial e4l08955-gf77-430z-a258-6w42e429s6xe j7k38835-on80-922r-b944-7w97u307r1mo ANSI-Commercial cveza6la-518t-16c9-2125-i2v9p3czqi8s hvfqf5bs-022a-95o7-8867-b4h1i6qema5m ANSI-Medicare Part B [id number]-[id number] ANSI-Commercial u42210u6-q152-6g58-518n-32cu3842zb63 n19704z9-b530-0z26-223h-06fs6718fy06 ANSI-Medicare Part B [id number]-[id number] 73uaq28r-8y84-8am6-ir04-218262z238eq ANSI-Commercial f15i34l3-y1rl-18z0-1noz-01omt9q1f382 h35f48a2-h6tm-00x8-9twh-96wzf0t5y292 ANSI-Commercial 5qs00zt9-71qg-87p7-je72-t27390541vu8 7zj36xp4-18tu-22l4-ml16-q66720304fe9 ANSI-Commercial 5q339178-a568-2817-ph56-m250yfw585k8 1s089228-d936-5257-cp15-a813dkk843t6 ANSI-Commercial 0vyd6i45-7291-08b3-gde3-6cjc7k714b8p 6wyy8y60-6957-90h8-eyp8-2tcg2x413y4c ANSI-Medicare Part B [id number]-pf0q-41v2-ql0q-[id number] ANSI-Commercial [id number]-[id number] qoe463c7-0824-4727-86y3-[id number] ANSI-Medicare Part B [id number] [id number]-[id number] ANSI-Commercial 45ruc793-4811-2vwl-602x-44g03w7am1w2 89jrn483-3897-1zgg-022t-85c01e5li8v8 ANSI-Commercial 28109r34-o39c-0k84-6828-[id number] [id number]-k59g-6q16-2011-[id number] ANS-Medicare Part B [id number] ANSI-Commercial [id number]-[id number]-[id number] [id number]-[id number] [employer] [id number] SP [id number] [employer] PPO O [id number] S [id number] MEDICARE C [id number] S [id number] A [employer] / UMR F [id number] SELF [id number] DME Jurisdiction A [facility] C [id number] SELF [id number] Medicare C [id number] SELF [id number] A MEDICARE [id number] SP [id number] [place] [id number] SP [id number] [employer] [id number] SP [id number] [employer] Medigap Part B [id number] Self [id number] [place] Primary [id number] Self [id number] [place] F [id number] SELF [id number] Medicare [id number] SELF [id number] A [employer]OMCO [id number] SP [id number] POMCO [id number] SP [id number] [place] Medigap Part B Self [place] Gov[place] Primary Self [place] Commercial Self [place] Primary Self [employer] PPO O [id number] S [id number] [employer] PPO O [id number] S [id number] A Problems, Conditions, and Diagnoses Code Display Name Description Problem Type Effective Dates Data Source(s) 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 s Problem 12/04/2019 12:00:00 AM EDT eCW1 ([facility]) Surgeries/Procedures Procedure Description Date Indications Data Source(s) Annual wellness visit, includes a person alized prevention plan of service (pps), subsequent visit 04/28/2019 12:00:00 AM EDT eCW 1 ([facility]) Office Visit, Est Pt., Level 2 FC 04/28/2019 12:00:00 AM EDT eCW1 ([facility]) Results ID Date Data Source [id number] 04/02/2020 11:00:00 AM EST [facility] Name Value Range Interpretation Code Description Data Rosa rce(s) Supporting Document(s) SARS coronavirus 2 RNA Not Detected [facility] [place] This lab was ordered by [facility] and reported by [facility]. ID Date Data Source URINE CULTURE 03/04/2020 12:00:00 AM EST eCW1 ([facility]) Name Value Range Interpretation Code Description Data Rosa rce(s) Supporting Document(s) Laboratory studies (set) URINE CULTU RE eCW1 ([facility]) ID Date Data Source [id number] 07/21/2019 01:11:50 PM EDT [facility] PCName: Briseyda WuB: 1935Provider: JosselynMaria FernandaYAMINI: 07/20/2019 History of Present IllnessPatient follows up today for her right hip, she status post total hip replacement. Overall patient states things are well. She states that she sits in a certain position she does have some groin pain but otherwise she has no pain. She states she likes to work out 5 days a week but has decrease this due to COVID-19. Results/DataXRays were ordered, obtained and interpreted today in the office. Indication: pain/dysfunction. Side: Right Site: Hip, Pelvis Views: 3 Views, and Pelvis Findings: no new fractures or dislocations. No evidence of bearing wear, osteolysis, implant migration or loosening. the joint remains reduced. hardware/implant is in good position. Assessment History of total right hip replacement (V43.64) (Z96.641)Patient is status post right total hip replacement Plan X-Ray I Hip-Uni Pelvis - 2 or 3 views (XRays were ordered, obtained and interpretedtoday in the office. Indication: pain/dysfunction.); Status:Complete; Done: 20Jul2019 Perform:SOS14 (General); Due:[id number]; Last Updated By:Tanisha Smith; 07/20/2019 10:55:52 AM;Ordered; For:Pain of right hip; Ordered By:Maria Fernanda Arcos;Weight Bearing Status : Weight bearingLaterality: : RightOverall patient is doing well. Occasionally she'll have some groin pain but only if she sits in certain positions. Otherwise she is pain-free. I told her if this changes or gets worse then she can let me know otherwise she'll make an appointment for 2 years time with updated x-rays. Antibiotic prophylaxis was discussed. Work / School NoteThe patient is not working at this time. Briseyda Parekh is retired. This document was dictated and electronically signed using [employer] software. A reasonable attempt at proof reading has been made to minimize errors. Please call with any questions. Signatures Electronically signed by : Maria Fernanda Arcos PA-C; Jul 20 2019 11:17AM EST (Author) Electronically signed by : Jim Napoles M.D.; Jul 21 2019 1:11PM EST (Author) Name Value Range Interpretation Code Description Data Rosa rce(s) Supporting Document(s) Procedure Social History Code Duration Value Status Description Data Source(s ) Smoking 03/04/2020 12:00:00 AM EST Former Smoker completed Former Smoker eCW1 ([facility]) Smoking 12/25/2019 12:00:00 AM EST Former Smoker completed Former Smoker eCW1 ([facility]) Smoking 11/27/2019 12:00:00 AM EDT Former Smoker completed Former Smoker eCW1 ([facility]) Smoking 11/27/2019 12:00:00 AM EDT Former Smoker completed Former Smoker eCW1 ([facility]) Smoking 11/27/2019 12:00:00 AM EDT Former Smoker completed Former Smoker eCW1 ([facility]) Smoking 11/27/2019 12:00:00 AM EDT Former Smoker completed Former Smoker eCW1 ([facility]) Smoking 11/27/2019 12:00:00 AM EDT Former Smoker completed Former Smoker eCW1 ([facility]) Smoking 11/27/2019 12:00:00 AM EDT Former Smoker completed Former Smoker eCW1 ([facility]) Smoking 09/04/2019 12:00:00 AM EDT Former Smoker completed Former Smoker eCW1 ([facility]) Smoking 09/04/2019 12:00:00 AM EDT Former Smoker completed Former Smoker eCW1 ([facility]) Smoking 09/04/2019 12:00:00 AM EDT Former Smoker completed Former Smoker eCW1 ([facility]) Smoking 04/28/2019 12:00:00 AM EDT Former Smoker completed Former Smoker eCW1 ([facility]) Smoking 04/28/2019 12:00:00 AM EDT Former Smoker completed Former Smoker eCW1 ([facility]) Smoking 04/28/2019 12:00:00 AM EDT Former Smoker completed Former Smoker eCW1 ([facility]) Vital Signs ID Date Data Source UNK Name Value Range Interpretation Code Description Data Source(s) Diastolic blood pressure 70 mm[Hg] 70 mm[Hg] eCW1 ([facility]) Systolic blood pressure 128 mm[Hg] 128 mm[Hg] e CW1 ([facility]) Body temperature 97.7 [degF] 97.7 [degF] eCW1 ( [facility]) Respiratory rate 18 /min 18 /min eCW1 ([facility]) Heart rate 84 /min 84 /min eCW1 ([facility]) Body mass index (BMI) [Ratio] 24.37 kg/m2 24.37 kg/m2 eCW1 ([facility]) Body height 64 [in_i] 64 [in_i] eCW1 ([facility]) Body weight 142 [lb_av] 142 [lb_av] eCW1 ([facility]) Body temperature 97.2 [degF] 97.2 [degF] MEDENT ([facility]) Body weight 63.958 kg 63.958 kg [facility] ([facility]) Body mass index (BMI) [Ratio] 24.2 kg/m2 24.2 k g/m2 [facility] ([facility]) Heart rate 66 /min 66 /min [facility] ([facility]) Diastolic blood pressure 84 mm[Hg] 84 mm[Hg] MED[facility] ([facility]) Systolic blood pressure 136 mm[Hg] 136 mm[Hg] M EDENT ([facility]) Body weight 141.00 [lb_av] 141.00 [lb_av] MEDEN T ([facility]) Body height 64 [in_i] 64 [in_i] [facility] ([facility]) 5'4" Diastolic blood pressure 80 mm[Hg] 80 mm[Hg] eCW1 ([facility]) Systolic blood pressure 134 mm[Hg] 134 mm[Hg] e CW1 ([facility]) Body temperature 97.3 [degF] 97.3 [degF] eCW1 ( [facility]) Respiratory rate 18 /min 18 /min eCW1 ([facility]) Heart rate 87 /min 87 /min eCW1 ([facility]) Body mass index (BMI) [Ratio] 24.54 kg/m2 24.54 kg/m2 eCW1 ([facility]) Body height 64 [in_i] 64 [in_i] eCW1 ([facility]) Body weight 143 [lb_av] 143 [lb_av] eCW1 ([facility]) Diastolic blood pressure 80 mm[Hg] 80 mm[Hg] eCW1 ([facility]) Systolic blood pressure 148 mm[Hg] 148 mm[Hg] e CW1 ([facility]) Body temperature 97.0 [degF] 97.0 [degF] eCW1 ( [facility]) Respiratory rate 18 /min 18 /min eCW1 ([facility]) Heart rate 89 /min 89 /min eCW1 ([facility]) Body mass index (BMI) [Ratio] 24.71 kg/m2 24.71 kg/m2 eCW1 ([facility]) Body height 64 [in_i] 64 [in_i] eCW1 ([facility]) Body weight 144 [lb_av] 144 [lb_av] eCW1 ([facility]) Body mass index (BMI) [Ratio] 23.3 kg/m2 23.3 k g/m2 MEDENT ([facility]) Body height 64 [in_i] 64 [in_i] MEDENT ([facility]) 5'4" Body weight 136.00 [lb_av] 136.00 [lb_av] MEDEN T ([facility], [facility]) Body temperature 98.1 [degF] 98.1 [degF] MEDENT ([facility], [facility]) Oxygen saturation in Arterial blood by Pulse oximetry 98 % 98 % MEDENT ([facility], [facility]) Respiratory rate 16 /min 16 /min MEDENT ( [facility]) Heart rate 90 /min 90 /min MEDENT ([facility]) Diastolic blood pressure 120 mm[Hg] 120 mm[Hg] MEDENT ([facility], [facility]) Systolic blood pressure 170 mm[Hg] 170 mm[Hg] M EDENT ([facility], [facility]) Diastolic blood pressure 76 mm[Hg] 76 mm[Hg] eCW1 ([facility]) Systolic blood pressure 142 mm[Hg] 142 mm[Hg] e CW1 ([facility]) Body temperature 97.8 [degF] 97.8 [degF] eCW1 ( [facility]) Respiratory rate 18 /min 18 /min eCW1 ([facility]) Heart rate 86 /min 86 /min eCW1 ([facility]) Body mass index (BMI) [Ratio] 24.37 kg/m2 24.37 kg/m2 eCW1 ([facility]) Body height 64 [in_i] 64 [in_i] eCW1 ([facility]) Body weight 142 [lb_av] 142 [lb_av] eCW1 ([facility]) Diastolic blood pressure 70 mm[Hg] 70 mm[Hg] eCW1 ([facility]) Systolic blood pressure 128 mm[Hg] 128 mm[Hg] e CW1 ([facility]) Body temperature 97.6 [degF] 97.6 [degF] eCW1 ( [facility]) Respiratory rate 18 /min 18 /min eCW1 ([facility]) Heart rate 81 /min 81 /min eCW1 ([facility]) Body mass index (BMI) [Ratio] 24.06 kg/m2 24.06 kg/m2 eCW1 ([facility]) Body height 64 [in_us] 64 [in_us] eCW1 ([facility]) Body weight Measured 140.2 [lb_av] 140.2 [lb_av ] eCW1 ([facility]) Patient Treatment Plan of Care Planned Activity Planned Date Details Description Data Source (s) Cephalexin 250 MG Oral Capsule [Keflex] 09/08/2019 12:00:00 AM EDT eCW1 ([facility]) Cephalexin 250 MG Oral Capsule [Keflex] 09/08/2019 12:00:00 AM EDT eCW1 ([facility])
[2020-04-07] MEDS ORDERED: propofoL 200 MG/20 ML VIAL As Ordered ONE (07:58)
--- NOTE | 2020-04-07 08:26 | ROOR ---
Patient Name: Briseyda Gallegos Procedure Date: 04/07/2020 7:36 AM Date of : 1935 Age: 84 Room: [facility] Gender: Female Note Status: Finalized Procedure: Colonoscopy Indications: Abnormal CT of the GI tract Providers: Luiz Holman MD Referring MD: Samuel Howell MD Requesting Provider: Medicines: Monitored Anesthesia Care Complications: No immediate complications. Procedure: Pre-Anesthesia Assessment: - Prior to the procedure, a History and Physical was performed, and patient medications and allergies were reviewed. The patient is competent. The risks and benefits of the procedure and the sedation options and risks were discussed with the patient. All questions were answered and informed consent was obtained. Patient identification and proposed procedure were verified by the physician, the nurse and the anesthesiologist in the procedure room. Mental Status Examination: alert and oriented. Airway Examination: normal oropharyngeal airway and neck mobility. Respiratory Examination: clear to auscultation. CV Examination: normal. ASA Grade Assessment: II - A patient with mild systemic disease. After reviewing the risks and benefits, the patient was deemed in satisfactory condition to undergo the procedure. The anesthesia plan was to use monitored anesthesia care (MAC). Immediately prior to administration of medications, the patient was re-assessed for adequacy to receive sedatives. The heart rate, respiratory rate, oxygen saturations, blood pressure, adequacy of pulmonary ventilation, and response to care were monitored throughout the procedure. The physical status of the patient was re-assessed after the procedure. The Colonoscope was introduced through the anus and advanced to the terminal ileum, with identification of the appendiceal orifice and IC valve. The colonoscopy was performed without difficulty. The patient tolerated the procedure well. The quality of the bowel preparation was good. The terminal ileum, ileocecal valve, appendiceal orifice, and rectum were photographed. Scope insertion time was 6 minutes. Scope withdrawal time was 8 minutes. The total duration of the procedure was 16 minutes. Findings: The perianal and digital rectal examinations were normal. The terminal ileum appeared normal. Multiple small and large-mouthed diverticula were found from sigmoid to ascending colon. There was evidence of diverticular spasm. There was no evidence of diverticular bleeding. External and internal hemorrhoids were found during retroflexion. The hemorrhoids were large. There is no endoscopic evidence of mass in the cecum. Impression: - The examined portion of the ileum was normal. - Severe diverticulosis from sigmoid to ascending colon. There was evidence of diverticular spasm. There was no evidence of diverticular bleeding. - External and internal hemorrhoids. - No specimens collected. Recommendation: - Patient has a contact number available for emergencies. The signs and symptoms of potential delayed complications were discussed with the patient. Return to normal activities tomorrow. Written discharge instructions were provided to the patient. - High fiber diet. - Continue present medications. - Use fiber, for example Citrucel, Fibercon, Konsyl or Metamucil. - Miralax 1 capful (17 grams) in 8 ounces of water PO daily. - Repeat colonoscopy is not recommended due to current age (66 years or older) for screening purposes and depending on clinical and functional status. - Return to primary care physician. Procedure Code(s): --- Professional --- 27944, Colonoscopy, flexible; diagnostic, including collection of specimen(s) by brushing or washing, when performed (separate procedure) Diagnosis Code(s): --- Professional --- K64.8, Other hemorrhoids K57.30, Diverticulosis of large intestine without perforation or abscess without bleeding R93.3, Abnormal findings on diagnostic imaging of other parts of digestive tract CPT copyright 2019 [employer]. All rights reserved. The codes documented in this report are preliminary and upon heel attacher review may be revised to meet current compliance requirements. Luiz Holman MD Luiz Holman MD 04/07/2020 8:25:44 AM Electronically signed by Luiz Holman MD Number of Addenda: 0 Note Initiated On: 04/07/2020 7:36 AM Estimated Blood Loss: Estimated blood loss was minimal.
[2020-04-07 08:35] VITALS: BP 141/66
== END 2020-04-07 08:41 | disposition home or self-care (01) ==
LOC: M OPP 06:48
PROVIDERS: ATTEND Internal Medicine Gastroenterology
DX: R93.3 Abnormal findings on diagnostic imaging of other parts of digestive tract (principal); K57.30 Diverticulosis of large intestine without perforation or abscess without bleeding; K64.8 Other hemorrhoids; I10 Essential (primary) hypertension; R12 Heartburn; M19.90 Unspecified osteoarthritis, unspecified site; J44.9 Chronic obstructive pulmonary disease, unspecified; F41.9 Anxiety disorder, unspecified; Z86.19 Personal history of other infectious and parasitic diseases; Z96.641 Presence of right artificial hip joint; Z87.891 Personal history of nicotine dependence; Z88.1 Allergy status to other antibiotic agents; Z88.2 Allergy status to sulfonamides; Z88.8 Allergy status to other drugs, medicaments and biological substances; Z79.82 Long term (current) use of aspirin; Z79.899 Other long term (current) drug therapy; Z80.0 Family history of malignant neoplasm of digestive organs

== ENCOUNTER → 2020-04-30 | Outpatient (CLI) | payer MEDICARE, OTHER ==
[~2020-04-30] MED LIST changes: -NS 1,000 ML IV ONE
== END ==
LOC: M LABSMTC 11:01
PROVIDERS: ATTEND Internal Medicine Gastroenterology
DX: Z01.812 Encounter for preprocedural laboratory examination (principal); Z20.822 Contact with and (suspected) exposure to COVID-19; K86.2 Cyst of pancreas

== ENCOUNTER → 2020-06-01 | Outpatient (CLI) | payer MEDICARE, OTHER | LOC: M WUC 09:35 | PROVIDERS: ATTEND Internal Medicine Gastroenterology | DX: R93.89 Abnormal findings on diagnostic imaging of other specified body structures (principal) ==

== ENCOUNTER → 2020-10-19 | Outpatient (REF) | payer MEDICARE, OTHER ==
[2020-10-19 15:17] LABS: BASO # 0.1 10^3/uL (0.0-0.2); EOS # 0.1 10^3/uL (0.0-0.5); EOS % 0.8 % (0.0-3.0); HEMATOCRIT 43.8 % (36.0-47.0); HEMOGLOBIN 14.9 g/dl (12.0-15.5); LYMPH # 1.3 10^3/uL (1.5-5.0); MEAN CORPUSCULAR HEMOGLOBIN 32.3 pg (27.0-33.0); MONO # 0.5 10^3/uL (0.0-0.8); MONO % 8.7 % (2.0-8.0); PLATELET COUNT, AUTOMATED 272 10^3/uL (150-450); RED BLOOD COUNT 4.61 10^6/uL (4.00-5.40)
[2020-10-19 15:21] LABS: APPEARANCE, URINE CLEAR (CLEAR); BACTERIA, URINE AUTO 1+ (NEGATIVE); BILIRUBIN, URINE AUTO NEGATIVE (NEGATIVE); BLOOD, URINE BLOOD NEGATIVE (NEGATIVE); COLOR, URINE STRAW (YELLOW); GLUCOSE, URINE (UA) AUTO NEGATIVE (NEGATIVE); KETONE, URINE AUTO NEGATIVE (NEGATIVE); LEUKOCYTE ESTERASE, URINE AUTO NEGATIVE (NEGATIVE); NITRITE, URINE AUTO NEGATIVE (NEGATIVE); PROTEIN, URINE AUTO NEGATIVE (NEGATIVE); RBC, URINE AUTO 0 /HPF (0-3); SPECIFIC GRAVITY URINE AUTO 1.002 (1.002-1.035); SQUAMOUS EPITHELIAL CELL UR AU 0 /HPF (0-6); UROBILINOGEN, URINE AUTO 0.2 mg/dL (0.0-2.0); WBC, URINE AUTO 0 /HPF (0-3)
[2020-10-19 15:44] LABS: ALT/SGPT 20 U/L (12-78); BILIRUBIN,TOTAL 0.7 MG/DL (0.2-1.0); BLOOD UREA NITROGEN 11 MG/DL (7-18); CALCIUM LEVEL 9.6 MG/DL (8.8-10.2); CARBON DIOXIDE LEVEL 30 MEQ/L (21-32); CHLORIDE LEVEL 101 MEQ/L (98-107); CREATININE FOR GFR 0.66 MG/DL (0.55-1.30); GLOMERULAR FILTRATION RATE > 60.0 (>32); GLUCOSE, FASTING 95 MG/DL (70-100); POTASSIUM SERUM 4.3 MEQ/L (3.5-5.1); SODIUM LEVEL 135 MEQ/L (136-145); TOTAL PROTEIN 7.1 GM/DL (6.4-8.2)
== END ==
LOC: M SFHCADAM 13:39
PROVIDERS: ATTEND Physician Assistant
DX: R10.32 Left lower quadrant pain (principal); N30.00 Acute cystitis without hematuria
CPT/HCPCS: 80053; 81001; 85025; 87088; 87186; G0463

== ENCOUNTER → 2020-10-27 | Outpatient (CLI) | payer MEDICARE, OTHER ==
[~2020-10-27] MED LIST changes: +GASTROGRAFIN SOLUTION 30ML (Q9963) As Ordered ONE; +ISOVUE-370 76% 100ML VIAL As Ordered ONE
--- NOTE | 2020-10-27 15:13 | REP ---
INDICATION: LLQ PAIN. History of diverticulitis. COMPARISON: Comparison CT study is from November 21, 2019. TECHNIQUE: Contrast dose: 100 ML of Isovue [address] technique: Helical scanning is acquired and overlapping 1.5 mm and contiguous 3 mm axial images are reformatted. In addition, maximum intensity projection and multiplanar re-formation images are generated in sagittal and coronal imaging projections. Oral contrast was also administered. FINDINGS: Preliminary digital brand planner radiograph demonstrates a normal bowel gas pattern. There is a right hip arthroplasty. Dextroconvex curve and degenerative spondylosis changes are noted in the lumbar spine. The lung bases are essentially clear. A large hiatal hernia is noted behind the heart containing much of the stomach. The gallbladder is surgically absent. The liver and the spleen are normal in size homogeneous in texture. No evidence of adrenal mass is observed on either side. No pancreatic mass or cyst is seen. The kidneys enhance symmetrically and are morphologically intact. There is some vascular calcification in the left renal hilus. No retroperitoneal mass or adenopathy is seen. Heavily calcified normal caliber aorta is seen. There is left colonic diverticulosis extending from the mid transverse colon through the rectosigmoid. There is no CT evidence of diverticulitis on today's CT study. No mural thickening or mass effect is seen. Diverticulosis is advanced in the distal left colon. No uterine or ovarian abnormality is appreciated. Urinary bladder is intact. No abdominal wall defect is appreciated. There are degenerative changes in the lumbar spine. No bony destructive lesion. IMPRESSION: 1. Large hiatal hernia. 2. Extensive left colonic diverticulosis without CT evidence of diverticulitis. 3. Post cholecystectomy. 4. Prosthetic right hip. <Electronically signed by Jose Trotter > 10/27/20 [id number]
== END ==
LOC: M RAD 12:55
PROVIDERS: ATTEND Physician Assistant
DX: K44.9 Diaphragmatic hernia without obstruction or gangrene (principal); K57.30 Diverticulosis of large intestine without perforation or abscess without bleeding; Z90.49 Acquired absence of other specified parts of digestive tract; Z96.641 Presence of right artificial hip joint; R10.32 Left lower quadrant pain
CPT/HCPCS: 74178; G0463; Q9963; Q9967

== ENCOUNTER → 2020-10-31 | Outpatient (REF) | payer MEDICARE, OTHER ==
[~2020-10-31] MED LIST changes: -GASTROGRAFIN SOLUTION 30ML (Q9963) As Ordered ONE; -ISOVUE-370 76% 100ML VIAL As Ordered ONE
== END ==
LOC: M SFHCPLAZ 17:20
PROVIDERS: ATTEND Physician Assistant
DX: R39.9 Unspecified symptoms and signs involving the genitourinary system (principal)
CPT/HCPCS: 81002; 87088; 87186; G0463

== ENCOUNTER → 2020-12-07 | Outpatient (REF) | payer MEDICARE, OTHER ==
[2020-12-07 16:31] LABS: HEMATOCRIT 42.2 % (36.0-47.0); HEMOGLOBIN 14.2 g/dl (12.0-15.5); MEAN CORPUSCULAR HEMOGLOBIN 31.8 pg (27.0-33.0); MEAN CORPUSCULAR HGB CONC 33.6 g/dl (32.0-36.5); MEAN CORPUSCULAR VOLUME 94.6 fl (80.0-96.0); PLATELET COUNT, AUTOMATED 253 10^3/uL (150-450); RED BLOOD COUNT 4.46 10^6/uL (4.00-5.40); WHITE BLOOD COUNT 7.9 10^3/uL (4.0-10.0)
[2020-12-07 16:32] LABS: AMORPHOUS SEDIMENT SMALL (NEGATIVE); APPEARANCE, URINE CLOUDY (CLEAR); BACTERIA, URINE AUTO 1+ (NEGATIVE); BILIRUBIN, URINE AUTO NEGATIVE (NEGATIVE); BLOOD, URINE BLOOD NEGATIVE (NEGATIVE); COLOR, URINE YELLOW (YELLOW); GLUCOSE, URINE (UA) AUTO NEGATIVE (NEGATIVE); KETONE, URINE AUTO NEGATIVE (NEGATIVE); LEUKOCYTE ESTERASE, URINE AUTO 3+ (NEGATIVE); MUCUS, URINE SMALL (NEGATIVE); NITRITE, URINE AUTO POSITIVE (NEGATIVE); PROTEIN, URINE AUTO NEGATIVE (NEGATIVE); RBC, URINE AUTO 2 /HPF (0-3); SPECIFIC GRAVITY URINE AUTO 1.004 (1.002-1.035); SQUAMOUS EPITHELIAL CELL UR AU 0 /HPF (0-6); UROBILINOGEN, URINE AUTO 0.2 mg/dL (0.0-2.0); WBC, URINE AUTO 66 /HPF (0-3)
[2020-12-07 17:08] LABS: ALBUMIN 3.8 GM/DL (3.2-5.2); ALT/SGPT 17 U/L (12-78); BILIRUBIN,TOTAL 0.5 MG/DL (0.2-1.0); BLOOD UREA NITROGEN 14 MG/DL (7-18); CALCIUM LEVEL 9.6 MG/DL (8.8-10.2); CARBON DIOXIDE LEVEL 30 MEQ/L (21-32); CHLORIDE LEVEL 101 MEQ/L (98-107); CREATININE FOR GFR 0.85 MG/DL (0.55-1.30); GLOMERULAR FILTRATION RATE > 60.0 (>32); GLUCOSE, FASTING 86 MG/DL (70-100); POTASSIUM SERUM 4.5 MEQ/L (3.5-5.1); SODIUM LEVEL 135 MEQ/L (136-145); TOTAL PROTEIN 6.8 GM/DL (6.4-8.2)
== END ==
LOC: M SFHCADAM 14:45
PROVIDERS: ATTEND Family Medicine
DX: I11.9 Hypertensive heart disease without heart failure (principal); N39.0 Urinary tract infection, site not specified; K86.2 Cyst of pancreas; Z23 Encounter for immunization
CPT/HCPCS: 80053; 81001; 85027; 86140; 87088; 87186; 90682; G0008; G0463

== ENCOUNTER → 2021-02-09 | Outpatient (REF) | payer MEDICARE, OTHER | LOC: M SFHCPLAZ 12:45 | PROVIDERS: ATTEND Physician Assistant | DX: R06.02 Shortness of breath (principal) ==

== ENCOUNTER → 2021-04-18 | Outpatient (REF) | payer MEDICARE, OTHER | LOC: M WUC 15:38 | PROVIDERS: ATTEND Physician Assistant | DX: R30.0 Dysuria (principal) ==

== ENCOUNTER → 2021-05-11 | Outpatient (CLI) | payer MEDICARE, OTHER | LOC: M WHC 07:45 | PROVIDERS: ATTEND Obstetrics & Gynecology | DX: Z12.31 Encounter for screening mammogram for malignant neoplasm of breast (principal) ==

== ENCOUNTER → 2021-06-08 | Outpatient (CLI) | payer MEDICARE, OTHER ==
[2021-06-08 12:45] LABS: BLOOD UREA NITROGEN 14 MG/DL (7-18); GLOMERULAR FILTRATION RATE > 60.0 (>32)
== END ==
LOC: M ADAMS 09:37
PROVIDERS: ATTEND Internal Medicine Gastroenterology
DX: R93.89 Abnormal findings on diagnostic imaging of other specified body structures (principal)

== ENCOUNTER → 2021-06-16 | Outpatient (REF) | payer MEDICARE, OTHER | LOC: M WUC 15:44 | PROVIDERS: ATTEND Physician Assistant | DX: R10.30 Lower abdominal pain, unspecified (principal) ==

== ENCOUNTER → 2021-06-28 | Outpatient (CLI) | payer MEDICARE, OTHER ==
[~2021-06-28] MED LIST changes: +PROHANCE 279.3MG/ML 15ML VIAL ONE
== END ==
LOC: M PLAIMG 13:12
PROVIDERS: ATTEND Internal Medicine Gastroenterology
DX: R93.89 Abnormal findings on diagnostic imaging of other specified body structures (principal)
CPT/HCPCS: 74183; A9576

== ENCOUNTER → 2021-09-21 | Outpatient (REF) | payer MEDICARE, OTHER ==
[~2021-09-21] MED LIST changes: +FISH10005 PO; -FISH7.5C PO; -PROHANCE 279.3MG/ML 15ML VIAL ONE
== END ==
LOC: M LAB REF 16:32
PROVIDERS: ATTEND Physician Assistant
DX: R30.0 Dysuria (principal)

== ENCOUNTER → 2021-09-28 | Outpatient (REF) | payer MEDICARE, OTHER | LOC: M WUC 09:37 | PROVIDERS: ATTEND Physician Assistant | DX: R30.0 Dysuria (principal) ==

== ENCOUNTER → 2021-10-30 | Outpatient (REF) | payer MEDICARE, OTHER | LOC: M WUC 19:46 | PROVIDERS: ATTEND Physician Assistant | DX: M54.50 Low back pain, unspecified (principal); R35.0 Frequency of micturition ==

== ENCOUNTER 2021-11-05 10:56 | Emergency (ER) | payer MEDICARE, OTHER ==
[~2021-11-05] VITALS: Ht 157.5 cm; Wt 63.4 kg
[2021-11-05 12:36] VITALS: O2SAT 89
[2021-11-05 13:57] LABS: BASO % 0.4 % (0.0-1.0); EOS % 0.2 % (0.0-3.0); HEMATOCRIT 43.9 % (36.0-47.0); HEMOGLOBIN 14.9 g/dl (12.0-15.5); LYMPH # 0.7 10^3/uL (1.5-5.0); LYMPH % 15.3 % (24.0-44.0); MEAN CORPUSCULAR HEMOGLOBIN 32.2 pg (27.0-33.0); MEAN CORPUSCULAR HGB CONC 33.9 g/dl (32.0-36.5); MEAN CORPUSCULAR VOLUME 94.8 fl (80.0-96.0); MONO # 0.7 10^3/uL (0.0-0.8); MONO % 14.8 % (2.0-8.0); NEUTROPHILS # 3.2 10^3/uL (1.5-8.5); NEUTROPHILS % 68.9 % (36.0-66.0); PLATELET COUNT, AUTOMATED 196 10^3/uL (150-450); RED BLOOD COUNT 4.63 10^6/uL (4.00-5.40); WHITE BLOOD COUNT 4.7 10^3/uL (4.0-10.0)
[2021-11-05 14:47] LABS: ALBUMIN 3.7 GM/DL (3.2-5.2); ALT/SGPT 23 U/L (12-78); BILIRUBIN,DIRECT 0.1 MG/DL (0.0-0.2); BILIRUBIN,TOTAL 0.4 MG/DL (0.2-1.0); BLOOD UREA NITROGEN 12 MG/DL (7-18); CALCIUM LEVEL 9.1 MG/DL (8.8-10.2); CARBON DIOXIDE LEVEL 29 MEQ/L (21-32); CHLORIDE LEVEL 96 MEQ/L (98-107); CREATININE FOR GFR 0.75 MG/DL (0.55-1.30); GLOMERULAR FILTRATION RATE > 60.0 (>32); GLUCOSE, FASTING 87 MG/DL (70-100); POTASSIUM SERUM 4.6 MEQ/L (3.5-5.1); SODIUM LEVEL 129 MEQ/L (136-145); TOTAL PROTEIN 7.1 GM/DL (6.4-8.2)
[2021-11-05] MEDS ORDERED: NIRMATRELVIR/RITONAVIR CO-PACK (EMERGENCY USE AUTH) PO SCH ×2 (15:00→21:00)
[2021-11-05 15:30] VITALS: BP 153/85
== END 2021-11-05 15:43 | disposition home or self-care (01) ==
LOC: M ED 10:56
DX: U07.1 COVID-19 (principal); R05.9 Cough, unspecified; R09.81 Nasal congestion; I10 Essential (primary) hypertension; J44.9 Chronic obstructive pulmonary disease, unspecified; E78.9 Disorder of lipoprotein metabolism, unspecified; K44.9 Diaphragmatic hernia without obstruction or gangrene; M51.9 Unspecified thoracic, thoracolumbar and lumbosacral intervertebral disc disorder; Z87.19 Personal history of other diseases of the digestive system; Z88.1 Allergy status to other antibiotic agents; Z88.2 Allergy status to sulfonamides; Z88.8 Allergy status to other drugs, medicaments and biological substances; Z87.81 Personal history of (healed) traumatic fracture; Z79.899 Other long term (current) drug therapy; Z79.82 Long term (current) use of aspirin

== ENCOUNTER → 2021-12-06 | Outpatient (REF) | payer MEDICARE, OTHER | LOC: M SFHCADAM 11:45 | PROVIDERS: ATTEND Family Medicine | DX: K86.2 Cyst of pancreas (principal); I11.9 Hypertensive heart disease without heart failure; E87.1 Hypo-osmolality and hyponatremia; E78.2 Mixed hyperlipidemia; N39.0 Urinary tract infection, site not specified ==

== ENCOUNTER → 2021-12-25 | Outpatient (REF) | payer MEDICARE, OTHER ==
[2021-12-25 14:01] LABS: APPEARANCE, URINE MANUAL HAZY (CLEAR); COLOR, URINE MANUAL YELLOW (YELLOW)
[2021-12-25 14:03] LABS: BILIRUBIN, URINE MANUAL NEGATIVE (NEGATIVE); GLUCOSE, URINE (UA) MANUAL NEGATIVE (NEGATIVE); KETONE, URINE MANUAL NEGATIVE (NEGATIVE); PROTEIN, URINE MANUAL NEGATIVE (NEGATIVE); SPECIFIC GRAVITY,URINE MANUAL 1.005 (1.002-1.035); UROBILINOGEN, URINE MANUAL NORMAL (NORMAL)
[2021-12-25 14:04] LABS: BLOOD URINE MANUAL NEGATIVE (NEGATIVE); LEUKOCYTE ESTERASE, URINE MAN POSITIVE (NEGATIVE); NITRITE, URINE MANUAL NEGATIVE (NEGATIVE)
[2021-12-25 14:07] LABS: HEMATOCRIT 43.4 % (36.0-47.0); HEMOGLOBIN 14.2 g/dl (12.0-15.5); MEAN CORPUSCULAR HEMOGLOBIN 31.9 pg (27.0-33.0); MEAN CORPUSCULAR HGB CONC 32.7 g/dl (32.0-36.5); MEAN CORPUSCULAR VOLUME 97.5 fl (80.0-96.0); PLATELET COUNT, AUTOMATED 268 10^3/uL (150-450); RED BLOOD COUNT 4.45 10^6/uL (4.00-5.40); WHITE BLOOD COUNT 6.6 10^3/uL (4.0-10.0)
[2021-12-25 14:57] LABS: OSMOLALITY URINE 211 MOSM/KG (50-1400)
[2021-12-25 15:10] LABS: BACTERIA, URINE LARGE AMOUNT; HYALINE CAST, URINE NONE SEEN /lpf (0-1); SQUAMOUS EPITHELIAL CELL URINE SMALL AMOUNT /hpf (SMALL AMT); WBC, URINE 15-20 /hpf (0-3)
[2021-12-25 15:43] LABS: ALBUMIN 3.7 GM/DL (3.2-5.2); ALT/SGPT 17 U/L (12-78); BILIRUBIN,TOTAL 0.4 MG/DL (0.2-1.0); BLOOD UREA NITROGEN 12 MG/DL (7-18); CARBON DIOXIDE LEVEL 26 MEQ/L (21-32); CHLORIDE LEVEL 101 MEQ/L (98-107); CHOLESTEROL LEVEL 161 MG/DL (<200); CHOLESTEROL RISK RATIO 2.037 (<5); CREATININE FOR GFR 0.65 MG/DL (0.55-1.30); FREE T4 1.05 NG/DL (0.76-1.46); GLOMERULAR FILTRATION RATE > 60.0 (>32); GLUCOSE, FASTING 84 MG/DL (70-100); HDL CHOLESTEROL 79 MG/DL (>40); LDL CHOLESTEROL 66 MG/DL (<100); NON-HDL-C 82 MG/DL; POTASSIUM SERUM 4.5 MEQ/L (3.5-5.1); SODIUM LEVEL 134 MEQ/L (136-145); TOTAL PROTEIN 6.7 GM/DL (6.4-8.2); TRIGLYCERIDES LEVEL 82 MG/DL (<150)
[2021-12-25 15:50] LABS: OSMOLALITY SERUM 278 MOSM/KG (280-301)
== END ==
LOC: M SFHCADAM 09:41
PROVIDERS: ATTEND Family Medicine
DX: K86.2 Cyst of pancreas (principal); I11.9 Hypertensive heart disease without heart failure; E87.1 Hypo-osmolality and hyponatremia; E78.2 Mixed hyperlipidemia; N39.0 Urinary tract infection, site not specified

== ENCOUNTER 2022-02-15 09:17 | Emergency (ER) | payer MEDICARE, OTHER ==
[~2022-02-15] VITALS: Ht 157.5 cm; Wt 62.5 kg
[2022-02-15 13:03] VITALS: BP 170/80
[2022-02-15] MEDS ORDERED: CEPH500C PO (13:25)
== END 2022-02-15 13:41 | disposition home or self-care (01) ==
LOC: M ED 09:17
DX: N39.0 Urinary tract infection, site not specified (principal); I10 Essential (primary) hypertension; K44.9 Diaphragmatic hernia without obstruction or gangrene; E78.5 Hyperlipidemia, unspecified; K21.9 Gastro-esophageal reflux disease without esophagitis; K57.30 Diverticulosis of large intestine without perforation or abscess without bleeding; J44.9 Chronic obstructive pulmonary disease, unspecified; Z90.49 Acquired absence of other specified parts of digestive tract; Z87.820 Personal history of traumatic brain injury; Z87.891 Personal history of nicotine dependence; Z88.1 Allergy status to other antibiotic agents; Z88.2 Allergy status to sulfonamides; Z88.8 Allergy status to other drugs, medicaments and biological substances; Z79.82 Long term (current) use of aspirin; Z79.899 Other long term (current) drug therapy

== ENCOUNTER → 2022-04-09 | Outpatient (REF) | payer MEDICARE, OTHER | LOC: M LAB REF 16:08 | PROVIDERS: ATTEND Physician Assistant | DX: R30.0 Dysuria (principal) ==

== ENCOUNTER → 2022-05-02 | Outpatient (REF) | payer MEDICARE, OTHER | LOC: M LAB REF 16:18 | PROVIDERS: ATTEND Physician Assistant | DX: R30.0 Dysuria (principal) ==

== ENCOUNTER → 2022-05-14 | Outpatient (CLI) | payer MEDICARE, OTHER ==
[2022-05-14 12:51] LABS: BLOOD UREA NITROGEN 15 MG/DL (9-23); GLOMERULAR FILTRATION RATE > 60.0 (>32)
== END ==
LOC: M WUC 08:10
PROVIDERS: ATTEND Internal Medicine Gastroenterology
DX: R93.89 Abnormal findings on diagnostic imaging of other specified body structures (principal)

== ENCOUNTER → 2022-05-21 | Outpatient (CLI) | payer MEDICARE, OTHER ==
[~2022-05-21] MED LIST changes: +PROHANCE 279.3MG/ML 15ML VIAL As Ordered ONE
== END ==
LOC: M RAD 08:48
PROVIDERS: ATTEND Internal Medicine Gastroenterology
DX: R93.89 Abnormal findings on diagnostic imaging of other specified body structures (principal)
CPT/HCPCS: 74183; A9576

== ENCOUNTER 2022-05-29 16:06 | Emergency (ER) | payer MEDICARE, OTHER ==
[~2022-05-29] VITALS: Ht 157.5 cm; Wt 62.3 kg
[~2022-05-29 16:06] MED LIST changes: -PROHANCE 279.3MG/ML 15ML VIAL As Ordered ONE
[2022-05-29 16:52] LABS: BASO % 0.1 % (0.0-1.0); EOS % 0.1 % (0.0-3.0); HEMOGLOBIN 14.3 g/dl (12.0-15.5); LYMPH # 0.1 10^3/uL (1.5-5.0); LYMPH % 1.2 % (24.0-44.0); MEAN CORPUSCULAR HEMOGLOBIN 32.5 pg (27.0-33.0); MEAN CORPUSCULAR VOLUME 95.5 fl (80.0-96.0); MONO # 0.4 10^3/uL (0.0-0.8); NEUTROPHILS # 7.7 10^3/uL (1.5-8.5); NEUTROPHILS % 93.1 % (36.0-66.0); PLATELET COUNT, AUTOMATED 214 10^3/uL (150-450); WHITE BLOOD COUNT 8.3 10^3/uL (4.0-10.0)
[2022-05-29] MEDS ORDERED: NS 1,000 ML IV ONE (17:10)
[2022-05-29] MEDS ORDERED: PANTOPRAZOLE 40MG VIAL IV ONE (17:10)
[2022-05-29] MEDS ORDERED: ONDANSETRON 4MG 2ML VIAL IV ONE (17:10)
[2022-05-29 17:15] LABS: LIPASE 29 U/L (12-53)
[2022-05-29 17:17] LABS: ALBUMIN 3.5 G/DL (3.2-5.2); ALKALINE PHOSPHATASE 65 U/L (46-116); ALT/SGPT 21 U/L (7.0-40); AST/SGOT 24 U/L (<34); BILIRUBIN,DIRECT 0.2 MG/DL (<0.4); BILIRUBIN,TOTAL 0.7 MG/DL (0.3-1.2); TOTAL PROTEIN 6.1 G/DL (5.7-8.2)
[2022-05-29 17:32] LABS: RSV AMPLIFICATION NEGATIVE (NEGATIVE)
[2022-05-29 19:21] LABS: CK-MB VALUE MASS 2.1 NG/ML (<3.6)
[2022-05-29] MEDS ORDERED: ISOVUE-370 76% 100ML VIAL As Ordered ONE (19:24)
[2022-05-29 19:34] LABS: CPK CREATINE PHOSPHOKINASE 42 U/L (34-145)
[2022-05-29] MEDS ORDERED: CEPHALEXIN 500 MG CAP PO ONE (20:25)
[2022-05-29 20:45] VITALS: BP 133/63
[2022-05-29] MEDS ORDERED: CEPH500T PO (21:10)
[2022-05-29] MEDS ORDERED: ONDA4TAB6 PO (21:10)
== END 2022-05-29 21:26 | disposition home or self-care (01) ==
LOC: M ED 16:06
DX: A08.4 Viral intestinal infection, unspecified (principal); K21.9 Gastro-esophageal reflux disease without esophagitis; I10 Essential (primary) hypertension; J44.9 Chronic obstructive pulmonary disease, unspecified; Z88.2 Allergy status to sulfonamides; Z88.8 Allergy status to other drugs, medicaments and biological substances; Z79.899 Other long term (current) drug therapy; Z79.82 Long term (current) use of aspirin
CPT/HCPCS: 71045; 74177; 80047; 80076; 81001; 82550; 82553; 83690; 84484; 85025; 87088; 87186; 87631; 93005; 96374; 96375; 99284; C9113; J2405; Q9967

== ENCOUNTER → 2022-06-14 | Outpatient (CLI) | payer MEDICARE, OTHER ==
[~2022-06-14] MED LIST changes: +CEPH500T PO; +ONDA4TAB6 PO
== END ==
LOC: M ADAMS 10:00
PROVIDERS: ATTEND Family Medicine
DX: M17.11 Unilateral primary osteoarthritis, right knee (principal)

== ENCOUNTER → 2022-06-14 | Outpatient (REF) | payer MEDICARE, OTHER ==
[2022-06-14 13:38] LABS: APPEARANCE, URINE HAZY (CLEAR); BACTERIA, URINE AUTO 1+ (NEGATIVE); BILIRUBIN, URINE AUTO NEGATIVE (NEGATIVE); BLOOD, URINE BLOOD NEGATIVE (NEGATIVE); COLOR, URINE YELLOW (YELLOW); GLUCOSE, URINE (UA) AUTO NEGATIVE (NEGATIVE); KETONE, URINE AUTO NEGATIVE (NEGATIVE); LEUKOCYTE ESTERASE, URINE AUTO 3+ (NEGATIVE); MUCUS, URINE SMALL (NEGATIVE); NITRITE, URINE AUTO POSITIVE (NEGATIVE); PROTEIN, URINE AUTO NEGATIVE (NEGATIVE); RBC, URINE AUTO 3 /HPF (0-3); SPECIFIC GRAVITY URINE AUTO 1.006 (1.002-1.035); SQUAMOUS EPITHELIAL CELL UR AU 0 /HPF (0-6); UROBILINOGEN, URINE AUTO 0.2 mg/dL (0.0-2.0); WBC, URINE AUTO TNTC /HPF (0-3)
== END ==
LOC: M SFHCADAM 09:13
PROVIDERS: ATTEND Family Medicine
DX: N39.0 Urinary tract infection, site not specified (principal)

== ENCOUNTER → 2022-06-19 | Outpatient (REF) | payer MEDICARE, OTHER | LOC: M SFHCADAM 14:36 | PROVIDERS: ATTEND Family Medicine | DX: N39.0 Urinary tract infection, site not specified (principal) ==

== ENCOUNTER → 2022-07-25 | Outpatient (REF) | payer MEDICARE, OTHER ==
[2022-07-25 13:04] LABS: APPEARANCE, URINE HAZY (CLEAR); BACTERIA, URINE AUTO NEGATIVE (NEGATIVE); BILIRUBIN, URINE AUTO NEGATIVE (NEGATIVE); BLOOD, URINE BLOOD NEGATIVE (NEGATIVE); COLOR, URINE YELLOW (YELLOW); GLUCOSE, URINE (UA) AUTO NEGATIVE (NEGATIVE); KETONE, URINE AUTO NEGATIVE (NEGATIVE); LEUKOCYTE ESTERASE, URINE AUTO 3+ (NEGATIVE); MUCUS, URINE SMALL (NEGATIVE); NITRITE, URINE AUTO POSITIVE (NEGATIVE); PROTEIN, URINE AUTO NEGATIVE (NEGATIVE); RBC, URINE AUTO 2 /HPF (0-3); SPECIFIC GRAVITY URINE AUTO 1.003 (1.002-1.035); SQUAMOUS EPITHELIAL CELL UR AU 0 /HPF (0-6); UROBILINOGEN, URINE AUTO 0.2 mg/dL (0.0-2.0); WBC, URINE AUTO 33 /HPF (0-3)
== END ==
LOC: M SFHCADAM 09:19
PROVIDERS: ATTEND Family Medicine
DX: N39.0 Urinary tract infection, site not specified (principal)
CPT/HCPCS: 81001; 87088; 87186; G0463

== ENCOUNTER → 2022-08-16 | Outpatient (REF) | payer MEDICARE, OTHER | LOC: M LAB REF 12:30 | PROVIDERS: ATTEND Nurse Practitioner Family | DX: R30.0 Dysuria (principal) ==

== ENCOUNTER → 2022-09-14 | Outpatient (REF) | payer MEDICARE, OTHER ==
[2022-09-14 13:45] LABS: HEMATOCRIT 43.2 % (36.0-47.0); HEMOGLOBIN 14.7 g/dl (12.0-15.5); MEAN CORPUSCULAR HEMOGLOBIN 32.2 pg (27.0-33.0); MEAN CORPUSCULAR VOLUME 94.5 fl (80.0-96.0); PLATELET COUNT, AUTOMATED 288 10^3/uL (150-450); RED BLOOD COUNT 4.57 10^6/uL (4.00-5.40); WHITE BLOOD COUNT 6.1 10^3/uL (4.0-10.0)
[2022-09-14 14:16] LABS: ALKALINE PHOSPHATASE 68 U/L (46-116); ALT/SGPT 14 U/L (7.0-40); AST/SGOT 12 U/L (<34); BILIRUBIN,TOTAL 0.6 MG/DL (0.3-1.2); BLOOD UREA NITROGEN 9 MG/DL (9-23); CALCIUM LEVEL 9.7 MG/DL (8.3-10.6); CARBON DIOXIDE LEVEL 28 MMOL/L (20-31); CHLORIDE LEVEL 99 MMOL/L (98-107); CHOLESTEROL LEVEL 192 MG/DL (<200); CHOLESTEROL RISK RATIO 2.04 (<5); CREATININE FOR GFR 0.56 MG/DL (0.55-1.30); GLOMERULAR FILTRATION RATE > 60.0 (>32); GLUCOSE, FASTING 80 MG/DL (74-106); HDL CHOLESTEROL 93.8 MG/DL (>40); LDL CHOLESTEROL 83.6 MG/DL (<100); NON-HDL-C 98.2 MG/DL; SODIUM LEVEL 134 MMOL/L (136-145); TOTAL PROTEIN 6.8 G/DL (5.7-8.2); TRIGLYCERIDES LEVEL 73 MG/DL (<150)
[2022-09-14 14:18] LABS: FREE T4 1.15 NG/DL (0.89-1.76)
[2022-09-14 18:00] LABS: APPEARANCE, URINE CLEAR (CLEAR); BACTERIA, URINE AUTO NEGATIVE (NEGATIVE); BILIRUBIN, URINE AUTO NEGATIVE (NEGATIVE); BLOOD, URINE BLOOD NEGATIVE (NEGATIVE); COLOR, URINE YELLOW (YELLOW); GLUCOSE, URINE (UA) AUTO NEGATIVE (NEGATIVE); KETONE, URINE AUTO NEGATIVE (NEGATIVE); LEUKOCYTE ESTERASE, URINE AUTO TRACE (NEGATIVE); NITRITE, URINE AUTO NEGATIVE (NEGATIVE); PROTEIN, URINE AUTO NEGATIVE (NEGATIVE); RBC, URINE AUTO 0 /HPF (0-3); SPECIFIC GRAVITY URINE AUTO 1.005 (1.002-1.035); SQUAMOUS EPITHELIAL CELL UR AU 0 /HPF (0-6); UROBILINOGEN, URINE AUTO 0.2 mg/dL (0.0-2.0); WBC, URINE AUTO 2 /HPF (0-3)
== END ==
LOC: M SFHCADAM 11:24
PROVIDERS: ATTEND Family Medicine
DX: R10.9 Unspecified abdominal pain (principal); E78.2 Mixed hyperlipidemia

== ENCOUNTER 2022-10-06 08:38 | Emergency (ER) | payer MEDICARE, OTHER ==
[~2022-10-06] VITALS: Ht 157.5 cm; Wt 61.0 kg
[2022-10-06] MEDS ORDERED: ASPIRIN 81MG CHEW TABLET PO ONE (09:25)
[2022-10-06 09:47] LABS: BASO # 0.1 10^3/uL (0.0-0.2); BASO % 0.7 % (0.0-1.0); EOS % 0.5 % (0.0-3.0); HEMATOCRIT 43.5 % (36.0-47.0); HEMOGLOBIN 14.8 g/dl (12.0-15.5); LYMPH # 0.8 10^3/uL (1.5-5.0); LYMPH % 10.3 % (24.0-44.0); MEAN CORPUSCULAR HEMOGLOBIN 32.2 pg (27.0-33.0); MEAN CORPUSCULAR VOLUME 94.6 fl (80.0-96.0); MONO # 0.5 10^3/uL (0.0-0.8); MONO % 6.4 % (2.0-8.0); NEUTROPHILS # 6.1 10^3/uL (1.5-8.5); NEUTROPHILS % 81.7 % (36.0-66.0); PLATELET COUNT, AUTOMATED 287 10^3/uL (150-450); WHITE BLOOD COUNT 7.5 10^3/uL (4.0-10.0)
[2022-10-06 10:20] LABS: BLOOD UREA NITROGEN 7 MG/DL (9-23); CALCIUM LEVEL 9.5 MG/DL (8.3-10.6); CARBON DIOXIDE LEVEL 27 MMOL/L (20-31); CHLORIDE LEVEL 96 MMOL/L (98-107); CREATININE FOR GFR 0.51 MG/DL (0.55-1.30); GLOMERULAR FILTRATION RATE > 60.0 (>32); GLUCOSE, FASTING 102 MG/DL (74-106); POTASSIUM SERUM 4.8 MMOL/L (3.5-5.1); SODIUM LEVEL 131 MMOL/L (136-145)
[2022-10-06 10:26] LABS: CK-MB VALUE MASS 1.5 NG/ML (<3.6)
[2022-10-06 10:28] LABS: CPK CREATINE PHOSPHOKINASE 74 U/L (34-145); MB/CK RELATIVE INDEX 2.02 (< OR =4)
[2022-10-06] MEDS ORDERED: ACETAMINOPHEN 500 MG TAB PO ONE (10:35)
[2022-10-06] MEDS ORDERED: ISOVUE-370 76% 100ML VIAL As Ordered ONE (10:41)
[2022-10-06 11:06] LABS: CK-MB VALUE MASS 1.2 NG/ML (<3.6)
[2022-10-06 11:10] LABS: MB/CK RELATIVE INDEX 2.3 (< OR =4)
[2022-10-06 11:49] VITALS: BP 162/80; TEMP 97.6; O2SAT 97
== END 2022-10-06 12:10 | disposition home or self-care (01) ==
LOC: M ED 08:38
DX: R07.9 Chest pain, unspecified (principal); I10 Essential (primary) hypertension; E78.5 Hyperlipidemia, unspecified; J44.9 Chronic obstructive pulmonary disease, unspecified; K22.4 Dyskinesia of esophagus; Z87.440 Personal history of urinary (tract) infections; Z87.891 Personal history of nicotine dependence; Z88.8 Allergy status to other drugs, medicaments and biological substances; Z88.2 Allergy status to sulfonamides; Z88.1 Allergy status to other antibiotic agents; Z79.899 Other long term (current) drug therapy; Z79.82 Long term (current) use of aspirin
CPT/HCPCS: 36415; 71045; 71275; 80048; 82550; 82553; 84484; 85025; 93005; 93041; 94760; 99285; Q9967

== ENCOUNTER → 2022-10-15 | Outpatient (CLI) | payer MEDICARE, OTHER | LOC: M WUC 11:17 | PROVIDERS: ATTEND Nurse Practitioner Family | DX: M47.814 Spondylosis without myelopathy or radiculopathy, thoracic region (principal); M25.712 Osteophyte, left shoulder ==

== ENCOUNTER 2022-12-06 08:41 | Emergency (ER) | payer MEDICARE, OTHER ==
[~2022-12-06] VITALS: Ht 157.5 cm; Wt 58.2 kg
[2022-12-06 08:42] VITALS: TEMP 98.1
[2022-12-06 11:41] VITALS: BP 174/74; O2SAT 98
== END 2022-12-06 11:43 | disposition home or self-care (01) ==
LOC: M ED 08:41
DX: M25.511 Pain in right shoulder (principal); I10 Essential (primary) hypertension; Z88.8 Allergy status to other drugs, medicaments and biological substances; Z88.2 Allergy status to sulfonamides; Z79.899 Other long term (current) drug therapy; Z79.82 Long term (current) use of aspirin

== ENCOUNTER 2023-01-28 11:28 | Emergency (ER) | payer MEDICARE, OTHER ==
[~2023-01-28] VITALS: Ht 157.5 cm; Wt 62.7 kg
[~2023-01-28 11:28] MED LIST changes: -BIOT50004 PO; +BIOT5CAP8 PO
[2023-01-28 15:45] VITALS: TEMP 97.1; O2SAT 95
[2023-01-28 16:28] VITALS: BP 164/90
== END 2023-01-28 17:24 | disposition home or self-care (01) ==
LOC: M ED 11:28
DX: S43.401A Unspecified sprain of right shoulder joint, initial encounter (principal); W17.89XA Other fall from one level to another, initial encounter; Y92.39 Other specified sports and athletic area as the place of occurrence of the external cause; I10 Essential (primary) hypertension; K21.9 Gastro-esophageal reflux disease without esophagitis; J44.9 Chronic obstructive pulmonary disease, unspecified; Z88.2 Allergy status to sulfonamides; Z88.8 Allergy status to other drugs, medicaments and biological substances; Z79.899 Other long term (current) drug therapy

== ENCOUNTER → 2023-05-14 | Outpatient (REF) | payer MEDICARE, OTHER | LOC: M LAB REF 10:18 | PROVIDERS: ATTEND Nurse Practitioner Family | DX: R30.0 Dysuria (principal) ==

== ENCOUNTER → 2023-06-11 | Outpatient (CLI) | payer MEDICARE, OTHER | LOC: M WUC 14:07 | PROVIDERS: ATTEND Physician Assistant | DX: R10.84 Generalized abdominal pain (principal); R30.0 Dysuria ==

== ENCOUNTER → 2023-06-26 | Outpatient (CLI) | payer MEDICARE, OTHER ==
[2023-06-26 15:58] LABS: BLOOD UREA NITROGEN 8 MG/DL (9-23); CREATININE FOR GFR 0.66 MG/DL (0.55-1.30); GLOMERULAR FILTRATION RATE > 60.0 (>32)
== END ==
LOC: M WUC 10:31
PROVIDERS: ATTEND Internal Medicine Gastroenterology
DX: R93.89 Abnormal findings on diagnostic imaging of other specified body structures (principal)

== ENCOUNTER → 2023-07-02 | Outpatient (REF) | payer MEDICARE, OTHER ==
[2023-07-02 17:07] LABS: HEMATOCRIT 45.7 % (36.0-47.0); HEMOGLOBIN 15.4 g/dl (12.0-15.5); MEAN CORPUSCULAR HEMOGLOBIN 32.4 pg (27.0-33.0); MEAN CORPUSCULAR HGB CONC 33.7 g/dl (32.0-36.5); PLATELET COUNT, AUTOMATED 318 10^3/uL (150-450); RED BLOOD COUNT 4.76 10^6/uL (4.00-5.40); WHITE BLOOD COUNT 10.1 10^3/uL (4.0-10.0)
[2023-07-02 17:11] LABS: APPEARANCE, URINE HAZY (CLEAR); BACTERIA, URINE AUTO 1+ (NEGATIVE); BILIRUBIN, URINE AUTO NEGATIVE (NEGATIVE); BLOOD, URINE BLOOD NEGATIVE (NEGATIVE); COLOR, URINE YELLOW (YELLOW); GLUCOSE, URINE (UA) AUTO NEGATIVE (NEGATIVE); KETONE, URINE AUTO NEGATIVE (NEGATIVE); LEUKOCYTE ESTERASE, URINE AUTO 3+ (NEGATIVE); MUCUS, URINE SMALL (NEGATIVE); NITRITE, URINE AUTO POSITIVE (NEGATIVE); PROTEIN, URINE AUTO NEGATIVE (NEGATIVE); RBC, URINE AUTO 1 /HPF (0-3); SPECIFIC GRAVITY URINE AUTO 1.008 (1.002-1.035); SQUAMOUS EPITHELIAL CELL UR AU 1 /HPF (0-6); UROBILINOGEN, URINE AUTO 0.2 mg/dL (0.0-2.0); WBC, URINE AUTO 58 /HPF (0-3)
[2023-07-02 17:14] LABS: ALKALINE PHOSPHATASE 72 U/L (46-116); ALT/SGPT 12 U/L (7.0-40); AST/SGOT 17 U/L (<34); BILIRUBIN,TOTAL 0.4 MG/DL (0.3-1.2); BLOOD UREA NITROGEN 16 MG/DL (9-23); CALCIUM LEVEL 9.8 MG/DL (8.3-10.6); CARBON DIOXIDE LEVEL 28 MMOL/L (20-31); CHLORIDE LEVEL 99 MMOL/L (98-107); GLOMERULAR FILTRATION RATE > 60.0 (>32); GLUCOSE, FASTING 86 MG/DL (74-106); POTASSIUM SERUM 4.8 MMOL/L (3.5-5.1); SODIUM LEVEL 133 MMOL/L (136-145); TOTAL PROTEIN 6.8 G/DL (5.7-8.2)
[2023-07-02 17:15] LABS: FREE T4 1.21 NG/DL (0.89-1.76)
[2023-07-02 17:16] LABS: THYROID STIMULATING HORMONE 3.352 uIU/ML (0.55-4.78)
== END ==
LOC: M SFHCADAM 13:56
PROVIDERS: ATTEND Family Medicine
DX: N39.0 Urinary tract infection, site not specified (principal); J44.9 Chronic obstructive pulmonary disease, unspecified; I11.9 Hypertensive heart disease without heart failure; E78.2 Mixed hyperlipidemia

== ENCOUNTER → 2023-07-05 | Outpatient (CLI) | payer MEDICARE, OTHER ==
[~2023-07-05] MED LIST changes: +PROHANCE 279.3MG/ML 5ML VIAL ONE
== END ==
LOC: M PLAIMG 14:59
PROVIDERS: ATTEND Internal Medicine Gastroenterology
DX: R93.89 Abnormal findings on diagnostic imaging of other specified body structures (principal)
CPT/HCPCS: 74183; A9576

== ENCOUNTER 2023-07-21 07:36 | Emergency (ER) | payer MEDICARE, OTHER ==
[~2023-07-21] VITALS: Ht 157.5 cm; Wt 57.6 kg
[~2023-07-21 07:36] MED LIST changes: +ONDA-282 PO; -ONDA4TAB6 PO; -PROHANCE 279.3MG/ML 5ML VIAL ONE
[2023-07-21 09:03] LABS: BASO % 0.7 % (0.0-1.0); EOS % 0.5 % (0.0-3.0); HEMATOCRIT 43.6 % (36.0-47.0); HEMOGLOBIN 14.9 g/dl (12.0-15.5); LYMPH # 0.7 10^3/uL (1.5-5.0); LYMPH % 13.1 % (24.0-44.0); MEAN CORPUSCULAR HEMOGLOBIN 32.2 pg (27.0-33.0); MEAN CORPUSCULAR HGB CONC 34.2 g/dl (32.0-36.5); MEAN CORPUSCULAR VOLUME 94.2 fl (80.0-96.0); MONO # 0.4 10^3/uL (0.0-0.8); MONO % 7.5 % (2.0-8.0); NEUTROPHILS # 4.3 10^3/uL (1.5-8.5); NEUTROPHILS % 77.7 % (36.0-66.0); PLATELET COUNT, AUTOMATED 248 10^3/uL (150-450); RED BLOOD COUNT 4.63 10^6/uL (4.00-5.40); WHITE BLOOD COUNT 5.6 10^3/uL (4.0-10.0)
[2023-07-21 09:22] LABS: LIPASE 25 U/L (12-53)
[2023-07-21 09:24] LABS: ALBUMIN 3.8 G/DL (3.2-5.2); ALKALINE PHOSPHATASE 70 U/L (46-116); ALT/SGPT 16 U/L (7.0-40); AST/SGOT 10 U/L (<34); BILIRUBIN,DIRECT 0.3 MG/DL (<0.4); BILIRUBIN,TOTAL 0.8 MG/DL (0.3-1.2); BLOOD UREA NITROGEN 8 MG/DL (9-23); CALCIUM LEVEL 9.4 MG/DL (8.3-10.6); CARBON DIOXIDE LEVEL 29 MMOL/L (20-31); CHLORIDE LEVEL 102 MMOL/L (98-107); CREATININE FOR GFR 0.53 MG/DL (0.55-1.30); GLOMERULAR FILTRATION RATE > 60.0 (>32); GLUCOSE, FASTING 88 MG/DL (74-106); SODIUM LEVEL 135 MMOL/L (136-145); TOTAL PROTEIN 6.5 G/DL (5.7-8.2)
[2023-07-21] MEDS ORDERED: ISOVUE-370 76% 100ML VIAL As Ordered ONE (09:37)
[2023-07-21 11:20] VITALS: BP 160/83; TEMP 98.2; O2SAT 91
[2023-07-21] MEDS: FOSFOMYCIN TROMETHAMINE 3 GM POWDER PACKET (MONUROL) PO ONE (11:38)
== END 2023-07-21 11:44 | disposition home or self-care (01) ==
LOC: M ED 07:36
DX: N30.90 Cystitis, unspecified without hematuria (principal); R00.1 Bradycardia, unspecified; K57.92 Diverticulitis of intestine, part unspecified, without perforation or abscess without bleeding; Z88.1 Allergy status to other antibiotic agents; Z88.2 Allergy status to sulfonamides; Z88.8 Allergy status to other drugs, medicaments and biological substances; Z79.82 Long term (current) use of aspirin; Z79.899 Other long term (current) drug therapy
CPT/HCPCS: 36415; 74177; 80048; 80076; 81001; 83605; 83690; 85025; 87088; 87186; 93005; 99284; Q9967

== ENCOUNTER → 2023-08-01 | Outpatient (REF) | payer MEDICARE, OTHER | LOC: M LAB REF 10:33 | PROVIDERS: ATTEND Nurse Practitioner Family | DX: R30.0 Dysuria (principal) ==

== ENCOUNTER → 2023-09-16 | Outpatient (REF) | payer MEDICARE, OTHER | LOC: M LAB REF 11:14 | PROVIDERS: ATTEND Student in an Organized Health Care Education/Training Program | DX: R30.0 Dysuria (principal) ==

== ENCOUNTER 2023-09-25 11:33 | Emergency (ER) | payer MEDICARE, OTHER ==
[~2023-09-25] VITALS: Ht 157.5 cm; Wt 60.2 kg
[2023-09-25] MEDS: BOOSTRIX VACCINE (TETANUS/DIPHTH/ACEL. PERTUSSIS) 0.5ML SYR IM.IMMUN ONE (13:42)
[2023-09-25] MEDS: IBUPROFEN 400MG TAB PO ONE (13:43)
[2023-09-25 14:50] VITALS: BP 136/59; TEMP 98.1; O2SAT 96
== END 2023-09-25 14:55 | disposition home or self-care (01) ==
LOC: EDBD 11:33 → M ED 11:33
DX: S40.021A Contusion of right upper arm, initial encounter (principal); S80.11XA Contusion of right lower leg, initial encounter; Y92.019 Unspecified place in single-family (private) house as the place of occurrence of the external cause; Y93.9 Activity, unspecified; Y99.9 Unspecified external cause status; W31.89XA Contact with other specified machinery, initial encounter; I10 Essential (primary) hypertension; J44.9 Chronic obstructive pulmonary disease, unspecified; E78.5 Hyperlipidemia, unspecified; Z87.891 Personal history of nicotine dependence; Z88.1 Allergy status to other antibiotic agents; Z88.2 Allergy status to sulfonamides; Z88.8 Allergy status to other drugs, medicaments and biological substances; Z79.1 Long term (current) use of non-steroidal anti-inflammatories (NSAID); Z79.810 Long term (current) use of selective estrogen receptor modulators (SERMs); Z23 Encounter for immunization

== ENCOUNTER → 2023-10-24 | Outpatient (REF) | payer MEDICARE, OTHER | LOC: M LABDRWAD 12:00 | PROVIDERS: ATTEND Family Medicine | DX: R39.9 Unspecified symptoms and signs involving the genitourinary system (principal) ==

== ENCOUNTER → 2023-10-24 | Outpatient (REF) | payer MEDICARE, OTHER | LOC: M SFHCADAM 12:12 | PROVIDERS: ATTEND Family Medicine | DX: R39.9 Unspecified symptoms and signs involving the genitourinary system (principal) ==

== ENCOUNTER → 2023-11-19 | Outpatient (REF) | payer MEDICARE, OTHER | LOC: M LAB REF 11-18 09:28 | PROVIDERS: ATTEND Nurse Practitioner Family | DX: R30.0 Dysuria (principal) ==

== ENCOUNTER → 2023-12-04 | Outpatient (REF) | payer MEDICARE, OTHER ==
[2023-12-04 13:28] LABS: APPEARANCE, URINE CLEAR (CLEAR); BACTERIA, URINE AUTO NEGATIVE (NEGATIVE); BILIRUBIN, URINE AUTO NEGATIVE (NEGATIVE); BLOOD, URINE BLOOD NEGATIVE (NEGATIVE); COLOR, URINE STRAW (YELLOW); GLUCOSE, URINE (UA) AUTO NEGATIVE (NEGATIVE); KETONE, URINE AUTO NEGATIVE (NEGATIVE); LEUKOCYTE ESTERASE, URINE AUTO NEGATIVE (NEGATIVE); NITRITE, URINE AUTO NEGATIVE (NEGATIVE); PROTEIN, URINE AUTO NEGATIVE (NEGATIVE); RBC, URINE AUTO 0 /HPF (0-3); SPECIFIC GRAVITY URINE AUTO 1.004 (1.002-1.035); SQUAMOUS EPITHELIAL CELL UR AU 0 /HPF (0-6); UROBILINOGEN, URINE AUTO 0.2 mg/dL (0.0-2.0); WBC, URINE AUTO 0 /HPF (0-3)
== END ==
LOC: M SMT 12:42
PROVIDERS: ATTEND Physician Assistant
DX: N39.0 Urinary tract infection, site not specified (principal)

== ENCOUNTER → 2023-12-16 | Outpatient (REF) | payer MEDICARE, OTHER | LOC: M LAB REF 12:10 | PROVIDERS: ATTEND Student in an Organized Health Care Education/Training Program | DX: R30.0 Dysuria (principal) ==

== ENCOUNTER → 2023-12-31 | Outpatient (REF) | payer MEDICARE, OTHER ==
[2023-12-31 18:06] LABS: APPEARANCE, URINE HAZY (CLEAR); BACTERIA, URINE AUTO NEGATIVE (NEGATIVE); BILIRUBIN, URINE AUTO NEGATIVE (NEGATIVE); BLOOD, URINE BLOOD 1+ (NEGATIVE); COLOR, URINE YELLOW (YELLOW); GLUCOSE, URINE (UA) AUTO NEGATIVE (NEGATIVE); KETONE, URINE AUTO NEGATIVE (NEGATIVE); LEUKOCYTE ESTERASE, URINE AUTO 3+ (NEGATIVE); NITRITE, URINE AUTO NEGATIVE (NEGATIVE); PROTEIN, URINE AUTO NEGATIVE (NEGATIVE); RBC, URINE AUTO 7 /HPF (0-3); SPECIFIC GRAVITY URINE AUTO 1.004 (1.002-1.035); SQUAMOUS EPITHELIAL CELL UR AU 0 /HPF (0-6); UROBILINOGEN, URINE AUTO 0.2 mg/dL (0.0-2.0); WBC, URINE AUTO TNTC /HPF (0-3)
[2023-12-31 18:18] LABS: HEMATOCRIT 46.1 % (36.0-47.0); MEAN CORPUSCULAR HEMOGLOBIN 31.3 pg (27.0-33.0); MEAN CORPUSCULAR HGB CONC 32.5 g/dl (32.0-36.5); PLATELET COUNT, AUTOMATED 298 10^3/uL (150-450); WHITE BLOOD COUNT 8.6 10^3/uL (4.0-10.0)
[2023-12-31 18:54] LABS: ALBUMIN 4.1 G/DL (3.2-5.2); ALKALINE PHOSPHATASE 80 U/L (35-104); ALT/SGPT 12 U/L (7.0-40); AST/SGOT 11 U/L (<34); BILIRUBIN,TOTAL 0.4 MG/DL (0.3-1.2); BLOOD UREA NITROGEN 10 MG/DL (9-23); CALCIUM LEVEL 9.9 MG/DL (8.3-10.6); CARBON DIOXIDE LEVEL 30 MMOL/L (20-31); CHLORIDE LEVEL 104 MMOL/L (98-107); CHOLESTEROL LEVEL 201 MG/DL (<200); CHOLESTEROL RISK RATIO 2.36 (<5); FREE T4 1.29 NG/DL (0.89-1.76); GLOMERULAR FILTRATION RATE > 60.0 (>32); GLUCOSE, FASTING 87 MG/DL (74-106); HDL CHOLESTEROL 84.9 MG/DL (>40); LDL CHOLESTEROL 98.9 MG/DL (<100); NON-HDL-C 116.1 MG/DL; POTASSIUM SERUM 4.2 MMOL/L (3.5-5.1); SODIUM LEVEL 138 MMOL/L (136-145); THYROID STIMULATING HORMONE 5.084 uIU/ML (0.55-4.78); TOTAL PROTEIN 7.3 G/DL (5.7-8.2); TRIGLYCERIDES LEVEL 86 MG/DL (<150)
== END ==
LOC: M SFHCADAM 15:01
PROVIDERS: ATTEND Family Medicine
DX: I11.9 Hypertensive heart disease without heart failure (principal); R39.9 Unspecified symptoms and signs involving the genitourinary system; E78.2 Mixed hyperlipidemia; N39.0 Urinary tract infection, site not specified

== ENCOUNTER → 2024-01-13 | Outpatient (CLI) | payer MEDICARE, OTHER ==
[~2024-01-13] MED LIST changes: +PROHANCE 279.3MG/ML 15ML VIAL ONE
== END ==
LOC: M PLAIMG 07:24
PROVIDERS: ATTEND Family Medicine
DX: K86.2 Cyst of pancreas (principal)
CPT/HCPCS: 74183; A9576

== ENCOUNTER → 2024-01-14 | Outpatient (REF) | payer MEDICARE, OTHER ==
[~2024-01-14] MED LIST changes: -PROHANCE 279.3MG/ML 15ML VIAL ONE
[2024-01-14 14:06] LABS: APPEARANCE, URINE CLEAR (CLEAR); BACTERIA, URINE AUTO NEGATIVE (NEGATIVE); BILIRUBIN, URINE AUTO NEGATIVE (NEGATIVE); BLOOD, URINE BLOOD NEGATIVE (NEGATIVE); COLOR, URINE STRAW (YELLOW); GLUCOSE, URINE (UA) AUTO NEGATIVE (NEGATIVE); KETONE, URINE AUTO NEGATIVE (NEGATIVE); LEUKOCYTE ESTERASE, URINE AUTO NEGATIVE (NEGATIVE); NITRITE, URINE AUTO NEGATIVE (NEGATIVE); PROTEIN, URINE AUTO NEGATIVE (NEGATIVE); RBC, URINE AUTO 0 /HPF (0-3); SPECIFIC GRAVITY URINE AUTO 1.005 (1.002-1.035); SQUAMOUS EPITHELIAL CELL UR AU 0 /HPF (0-6); UROBILINOGEN, URINE AUTO 0.2 mg/dL (0.0-2.0); WBC, URINE AUTO 1 /HPF (0-3)
== END ==
LOC: M SMT 12:40
PROVIDERS: ATTEND Urology
DX: R33.9 Retention of urine, unspecified (principal)

== ENCOUNTER → 2024-02-07 | Outpatient (REF) | payer MEDICARE, OTHER ==
[2024-02-07 15:11] LABS: APPEARANCE, URINE HAZY (CLEAR); BACTERIA, URINE AUTO 2+ (NEGATIVE); BILIRUBIN, URINE AUTO NEGATIVE (NEGATIVE); BLOOD, URINE BLOOD NEGATIVE (NEGATIVE); COLOR, URINE YELLOW (YELLOW); GLUCOSE, URINE (UA) AUTO NEGATIVE (NEGATIVE); KETONE, URINE AUTO NEGATIVE (NEGATIVE); LEUKOCYTE ESTERASE, URINE AUTO 3+ (NEGATIVE); NITRITE, URINE AUTO NEGATIVE (NEGATIVE); PROTEIN, URINE AUTO NEGATIVE (NEGATIVE); RBC, URINE AUTO 1 /HPF (0-3); SPECIFIC GRAVITY URINE AUTO 1.005 (1.002-1.035); SQUAMOUS EPITHELIAL CELL UR AU 0 /HPF (0-6); UROBILINOGEN, URINE AUTO 0.2 mg/dL (0.0-2.0); WBC, URINE AUTO 40 /HPF (0-3)
== END ==
LOC: M SMT 14:41
PROVIDERS: ATTEND Physician Assistant
DX: R39.9 Unspecified symptoms and signs involving the genitourinary system (principal)

== ENCOUNTER → 2024-02-18 | Outpatient (REF) | payer MEDICARE, OTHER ==
[2024-02-18 13:23] LABS: APPEARANCE, URINE CLEAR (CLEAR); BACTERIA, URINE AUTO NEGATIVE (NEGATIVE); BILIRUBIN, URINE AUTO NEGATIVE (NEGATIVE); BLOOD, URINE BLOOD NEGATIVE (NEGATIVE); COLOR, URINE STRAW (YELLOW); GLUCOSE, URINE (UA) AUTO NEGATIVE (NEGATIVE); KETONE, URINE AUTO NEGATIVE (NEGATIVE); LEUKOCYTE ESTERASE, URINE AUTO NEGATIVE (NEGATIVE); MUCUS, URINE SMALL (NEGATIVE); NITRITE, URINE AUTO NEGATIVE (NEGATIVE); PROTEIN, URINE AUTO NEGATIVE (NEGATIVE); RBC, URINE AUTO 0 /HPF (0-3); SPECIFIC GRAVITY URINE AUTO 1.003 (1.002-1.035); SQUAMOUS EPITHELIAL CELL UR AU 0 /HPF (0-6); UROBILINOGEN, URINE AUTO 0.2 mg/dL (0.0-2.0); WBC, URINE AUTO 0 /HPF (0-3)
== END ==
LOC: M SMT 12:36
PROVIDERS: ATTEND Urology
DX: R33.9 Retention of urine, unspecified (principal)

== ENCOUNTER → 2024-04-08 | Outpatient (REF) | payer MEDICARE, OTHER ==
[~2024-04-08] MED LIST changes: +VANC125C13 PO; -VANC125C3 PO
[2024-04-08 18:18] LABS: APPEARANCE, URINE MANUAL CLOUDY (CLEAR); BILIRUBIN, URINE MANUAL NEGATIVE (NEGATIVE); BLOOD URINE MANUAL POSITIVE (NEGATIVE); COLOR, URINE MANUAL YELLOW (YELLOW); GLUCOSE, URINE (UA) MANUAL NEGATIVE (NEGATIVE); KETONE, URINE MANUAL NEGATIVE (NEGATIVE); LEUKOCYTE ESTERASE, URINE MAN POSITIVE (NEGATIVE); NITRITE, URINE MANUAL POSITIVE (NEGATIVE); PROTEIN, URINE MANUAL 1+ mg/dL (NEGATIVE); SPECIFIC GRAVITY,URINE MANUAL 1.005 (1.002-1.035); UROBILINOGEN, URINE MANUAL NORMAL (NORMAL)
[2024-04-08 18:37] LABS: BACTERIA, URINE SMALL AMOUNT; HYALINE CAST, URINE NONE SEEN /lpf (0-1); RBC, URINE NONE SEEN /hpf (0-3); SQUAMOUS EPITHELIAL CELL URINE SMALL AMOUNT /hpf (SMALL AMT); WBC, URINE TNTC /hpf (0-3)
== END ==
LOC: M SMT 16:54
PROVIDERS: ATTEND Physician Assistant
DX: R39.9 Unspecified symptoms and signs involving the genitourinary system (principal)

== ENCOUNTER → 2024-04-30 | Outpatient (REF) | payer MEDICARE, OTHER ==
[2024-04-30 17:43] LABS: APPEARANCE, URINE CLEAR (CLEAR); BACTERIA, URINE AUTO NEGATIVE (NEGATIVE); BILIRUBIN, URINE AUTO NEGATIVE (NEGATIVE); BLOOD, URINE BLOOD NEGATIVE (NEGATIVE); COLOR, URINE STRAW (YELLOW); GLUCOSE, URINE (UA) AUTO NEGATIVE (NEGATIVE); KETONE, URINE AUTO NEGATIVE (NEGATIVE); LEUKOCYTE ESTERASE, URINE AUTO NEGATIVE (NEGATIVE); NITRITE, URINE AUTO NEGATIVE (NEGATIVE); PROTEIN, URINE AUTO NEGATIVE (NEGATIVE); RBC, URINE AUTO 1 /HPF (0-3); SPECIFIC GRAVITY URINE AUTO 1.004 (1.002-1.035); SQUAMOUS EPITHELIAL CELL UR AU 0 /HPF (0-6); UROBILINOGEN, URINE AUTO 0.2 mg/dL (0.0-2.0); WBC, URINE AUTO 0 /HPF (0-3)
== END ==
LOC: M SMT 17:05
PROVIDERS: ATTEND Nurse Practitioner Family
DX: R39.9 Unspecified symptoms and signs involving the genitourinary system (principal)

== ENCOUNTER → 2024-05-07 | Outpatient (CLI) | payer MEDICARE, OTHER | LOC: M ADAMS 14:19 | PROVIDERS: ATTEND Family Medicine | DX: J44.9 Chronic obstructive pulmonary disease, unspecified (principal) ==

== ENCOUNTER → 2024-05-15 | Outpatient (REF) | payer MEDICARE, OTHER ==
[2024-05-15 13:42] LABS: APPEARANCE, URINE CLEAR (CLEAR); BACTERIA, URINE AUTO NEGATIVE (NEGATIVE); BILIRUBIN, URINE AUTO NEGATIVE (NEGATIVE); BLOOD, URINE BLOOD NEGATIVE (NEGATIVE); COLOR, URINE STRAW (YELLOW); GLUCOSE, URINE (UA) AUTO NEGATIVE (NEGATIVE); KETONE, URINE AUTO NEGATIVE (NEGATIVE); LEUKOCYTE ESTERASE, URINE AUTO NEGATIVE (NEGATIVE); NITRITE, URINE AUTO NEGATIVE (NEGATIVE); PROTEIN, URINE AUTO NEGATIVE (NEGATIVE); RBC, URINE AUTO 1 /HPF (0-3); SPECIFIC GRAVITY URINE AUTO 1.004 (1.002-1.035); SQUAMOUS EPITHELIAL CELL UR AU 0 /HPF (0-6); UROBILINOGEN, URINE AUTO 0.2 mg/dL (0.0-2.0); WBC, URINE AUTO 0 /HPF (0-3)
== END ==
LOC: M SMT 13:07
PROVIDERS: ATTEND Urology
DX: N39.0 Urinary tract infection, site not specified (principal)

== ENCOUNTER → 2024-06-03 | Outpatient (REF) | payer MEDICARE, OTHER ==
[2024-06-03 13:58] LABS: APPEARANCE, URINE CLEAR (CLEAR); BACTERIA, URINE AUTO NEGATIVE (NEGATIVE); BILIRUBIN, URINE AUTO NEGATIVE (NEGATIVE); BLOOD, URINE BLOOD NEGATIVE (NEGATIVE); COLOR, URINE STRAW (YELLOW); GLUCOSE, URINE (UA) AUTO NEGATIVE (NEGATIVE); KETONE, URINE AUTO NEGATIVE (NEGATIVE); LEUKOCYTE ESTERASE, URINE AUTO NEGATIVE (NEGATIVE); NITRITE, URINE AUTO NEGATIVE (NEGATIVE); PROTEIN, URINE AUTO NEGATIVE (NEGATIVE); RBC, URINE AUTO 1 /HPF (0-3); SPECIFIC GRAVITY URINE AUTO 1.005 (1.002-1.035); SQUAMOUS EPITHELIAL CELL UR AU 1 /HPF (0-6); UROBILINOGEN, URINE AUTO 0.2 mg/dL (0.0-2.0); WBC, URINE AUTO 0 /HPF (0-3)
== END ==
LOC: M SMT 12:49
PROVIDERS: ATTEND Urology
DX: N39.0 Urinary tract infection, site not specified (principal)

== ENCOUNTER 2024-06-14 08:30 | Emergency (ER) | payer MEDICARE, OTHER ==
[~2024-06-14] VITALS: Ht 160 cm; Wt 61.4 kg
[~2024-06-14 08:30] MED LIST changes: -CLOT10TR; +CLOT10TR11
[2024-06-14 10:49] LABS: BASO % 0.4 % (0.0-1.0); EOS % 0.5 % (0.0-3.0); HEMOGLOBIN 13.6 g/dl (12.0-15.5); LYMPH # 0.8 10^3/uL (1.5-5.0); LYMPH % 9.9 % (24.0-44.0); MEAN CORPUSCULAR HEMOGLOBIN 31.9 pg (27.0-33.0); MEAN CORPUSCULAR VOLUME 93.7 fl (80.0-96.0); MONO # 0.7 10^3/uL (0.0-0.8); MONO % 8.8 % (2.0-8.0); NEUTROPHILS # 6.5 10^3/uL (1.5-8.5); NEUTROPHILS % 80.2 % (36.0-66.0); PLATELET COUNT, AUTOMATED 246 10^3/uL (150-450); RED BLOOD COUNT 4.27 10^6/uL (4.00-5.40); WHITE BLOOD COUNT 8.1 10^3/uL (4.0-10.0)
[2024-06-14 11:17] LABS: LIPASE 27 U/L (12-53)
[2024-06-14 11:19] LABS: ALBUMIN 3.8 G/DL (3.2-5.2); ALKALINE PHOSPHATASE 63 U/L (35-104); ALT/SGPT 16 U/L (7.0-40); AST/SGOT 26 U/L (<34); BILIRUBIN,DIRECT 0.2 MG/DL (<0.4); BILIRUBIN,TOTAL 0.6 MG/DL (0.3-1.2); BLOOD UREA NITROGEN 10 MG/DL (9-23); CALCIUM LEVEL 9.1 MG/DL (8.3-10.6); CARBON DIOXIDE LEVEL 28 MMOL/L (20-31); CHLORIDE LEVEL 99 MMOL/L (98-107); GLOMERULAR FILTRATION RATE > 90.0 (>32); GLUCOSE, FASTING 91 MG/DL (74-106); SODIUM LEVEL 135 MMOL/L (136-145); TOTAL PROTEIN 6.6 G/DL (5.7-8.2)
[2024-06-14 11:29] LABS: KETONE, URINE AUTO RFX NEGATIVE (NEGATIVE); LEUKOCYTE ESTERASE UR AUTO RFX NEGATIVE (NEGATIVE); NITRITE, URINE AUTO RFX NEGATIVE (NEGATIVE); RBC, URINE AUTO RFX 1 /HPF (0-3); SQUAM EPITHELIAL CELL UR AURFX 1 /HPF (0-6); WBC, URINE AUTO RFX 0 /HPF (0-3)
[2024-06-14] MEDS ORDERED: ISOVUE-370 76% 100ML VIAL As Ordered ONE (11:44)
[2024-06-14] MEDS: ACETAMINOPHEN 500 MG TAB PO ONE (14:06)
[2024-06-14] MEDS: IBUPROFEN 600MG TAB PO ONE (14:06)
[2024-06-14 14:15] VITALS: BP 162/88; TEMP 96.9; O2SAT 95
[2024-06-14] MEDS: LIDOCAINE 5% (LIDODERM) PATCH TD ONE ×2 (14:16→14:51)
[2024-06-14] MEDS ORDERED: LIDO5DIS41 TOP (14:45)
== END 2024-06-14 14:58 | disposition home or self-care (01) ==
LOC: M ED 08:30
DX: S22.41XA Multiple fractures of ribs, right side, initial encounter for closed fracture (principal); J91.8 Pleural effusion in other conditions classified elsewhere; R93.89 Abnormal findings on diagnostic imaging of other specified body structures; Y92.9 Unspecified place or not applicable; Y93.9 Activity, unspecified; Y99.9 Unspecified external cause status; W01.190A Fall on same level from slipping, tripping and stumbling with subsequent striking against furniture, initial encounter; I10 Essential (primary) hypertension; J44.9 Chronic obstructive pulmonary disease, unspecified; F10.10 Alcohol abuse, uncomplicated; Z87.891 Personal history of nicotine dependence; Z88.1 Allergy status to other antibiotic agents; Z88.2 Allergy status to sulfonamides; Z88.8 Allergy status to other drugs, medicaments and biological substances; Z79.1 Long term (current) use of non-steroidal anti-inflammatories (NSAID); Z79.810 Long term (current) use of selective estrogen receptor modulators (SERMs); Z79.899 Other long term (current) drug therapy
CPT/HCPCS: 36415; 71260; 74177; 80048; 80076; 81001; 83690; 85025; 99284; Q9967

== ENCOUNTER → 2024-08-20 | Outpatient (REF) | payer MEDICARE, OTHER ==
[~2024-08-20] MED LIST changes: +COLA100C5 PO; +LIDO1ADH93 TOP
[2024-08-20 14:05] LABS: APPEARANCE, URINE CLEAR (CLEAR); BACTERIA, URINE AUTO NEGATIVE (NEGATIVE); BILIRUBIN, URINE AUTO NEGATIVE (NEGATIVE); BLOOD, URINE BLOOD NEGATIVE (NEGATIVE); GLUCOSE, URINE (UA) AUTO NEGATIVE (NEGATIVE); KETONE, URINE AUTO NEGATIVE (NEGATIVE); LEUKOCYTE ESTERASE, URINE AUTO NEGATIVE (NEGATIVE); NITRITE, URINE AUTO NEGATIVE (NEGATIVE); PROTEIN, URINE AUTO NEGATIVE (NEGATIVE); RBC, URINE AUTO 0 /HPF (0-3); SPECIFIC GRAVITY URINE AUTO 1.003 (1.002-1.035); SQUAMOUS EPITHELIAL CELL UR AU 0 /HPF (0-6); UROBILINOGEN, URINE AUTO 0.2 mg/dL (0.0-2.0); WBC, URINE AUTO 0 /HPF (0-3)
== END ==
LOC: M SFHCADAM 10:14
PROVIDERS: ATTEND Family Medicine
DX: N39.0 Urinary tract infection, site not specified (principal)

== ENCOUNTER 2024-09-06 12:05 | Emergency (ER) | payer MEDICARE, OTHER ==
[~2024-09-06] VITALS: Ht 157.5 cm; Wt 58.2 kg
[2024-09-06 13:10] LABS: BASO # 0.0 10^3/uL (0.0-0.2); BASO % 0.5 % (0.0-1.0); EOS # 0.1 10^3/uL (0.0-0.5); EOS % 0.8 % (0.0-3.0); LYMPH # 0.9 10^3/uL (1.5-5.0); LYMPH % 15.6 % (24.0-44.0); MONO # 0.7 10^3/uL (0.0-0.8); MONO % 11.0 % (2.0-8.0); NEUTROPHILS # 4.3 10^3/uL (1.5-8.5); NEUTROPHILS % 71.6 % (36.0-66.0); PLATELET COUNT, AUTOMATED 256 10^3/uL (150-450)
[2024-09-06 13:14] LABS: KETONE, URINE AUTO RFX NEGATIVE (NEGATIVE); LEUKOCYTE ESTERASE UR AUTO RFX 2+ (NEGATIVE); NITRITE, URINE AUTO RFX NEGATIVE (NEGATIVE); RBC, URINE AUTO RFX 1 /HPF (0-3); SQUAM EPITHELIAL CELL UR AURFX 4 /HPF (0-6); WBC, URINE AUTO RFX 6 /HPF (0-3)
[2024-09-06 13:43] LABS: ALT/SGPT 15.0 U/L (7.0-40); AST/SGOT 25.0 U/L (<34); CALCIUM LEVEL 9.4 MG/DL (8.3-10.6); CARBON DIOXIDE LEVEL 28.0 MMOL/L (20-31); CHLORIDE LEVEL 95.0 MMOL/L (98-107); CREATININE FOR GFR 0.58 MG/DL (0.55-1.30); GLOMERULAR FILTRATION RATE 87.5 (>32); POTASSIUM SERUM 4.2 MMOL/L (3.5-5.1); SODIUM LEVEL 132.0 MMOL/L (136-145)
[2024-09-06] MEDS ORDERED: ISOVUE-370 76% 100 ML VIAL As Ordered ONE (13:53)
[2024-09-06] MEDS: MAALOX 30 ML SUSP *UDC PO ONE (16:19)
[2024-09-06] MEDS: LIDOCAINE VISCOUS 2% SOLN 15 ML UDC PO ONE (16:19)
[2024-09-06 19:48] VITALS: BP 160/75; TEMP 98.5; O2SAT 94
== END 2024-09-06 20:01 | disposition home or self-care (01) ==
LOC: M ED 12:05
DX: R33.9 Retention of urine, unspecified (principal); K44.9 Diaphragmatic hernia without obstruction or gangrene; I10 Essential (primary) hypertension; J44.9 Chronic obstructive pulmonary disease, unspecified; E78.5 Hyperlipidemia, unspecified; Z87.891 Personal history of nicotine dependence; Z88.1 Allergy status to other antibiotic agents; Z88.2 Allergy status to sulfonamides; Z88.8 Allergy status to other drugs, medicaments and biological substances; Z79.1 Long term (current) use of non-steroidal anti-inflammatories (NSAID); Z79.899 Other long term (current) drug therapy; Z79.810 Long term (current) use of selective estrogen receptor modulators (SERMs)
CPT/HCPCS: 36415; 74177; 80053; 81001; 85025; 86850; 86900; 86901; 87088; 87186; 99284; Q9967

== ENCOUNTER → 2024-09-24 | Outpatient (REF) | payer MEDICARE, OTHER ==
[2024-09-24 13:33] LABS: APPEARANCE, URINE CLEAR (CLEAR); BACTERIA, URINE AUTO NEGATIVE (NEGATIVE); BILIRUBIN, URINE AUTO NEGATIVE (NEGATIVE); BLOOD, URINE BLOOD NEGATIVE (NEGATIVE); GLUCOSE, URINE (UA) AUTO NEGATIVE (NEGATIVE); KETONE, URINE AUTO NEGATIVE (NEGATIVE); LEUKOCYTE ESTERASE, URINE AUTO TRACE (NEGATIVE); NITRITE, URINE AUTO NEGATIVE (NEGATIVE); PROTEIN, URINE AUTO NEGATIVE (NEGATIVE); RBC, URINE AUTO 1 /HPF (0-3); SPECIFIC GRAVITY URINE AUTO 1.003 (1.002-1.035); SQUAMOUS EPITHELIAL CELL UR AU 3 /HPF (0-6); UROBILINOGEN, URINE AUTO 0.2 mg/dL (0.0-2.0); WBC, URINE AUTO 1 /HPF (0-3)
== END ==
LOC: M SMT 12:34
PROVIDERS: ATTEND Physician Assistant
DX: R39.9 Unspecified symptoms and signs involving the genitourinary system (principal)

== ENCOUNTER → 2024-09-30 | Outpatient (REF) | payer MEDICARE, OTHER ==
[~2024-09-30] MED LIST changes: +ASPECRE TOP; +BACI1CAP PO; +OMEG10002 PO
[2024-09-30 13:40] LABS: APPEARANCE, URINE CLOUDY (CLEAR); BACTERIA, URINE AUTO 1+ (NEGATIVE); BILIRUBIN, URINE AUTO NEGATIVE (NEGATIVE); BLOOD, URINE BLOOD 2+ (NEGATIVE); GLUCOSE, URINE (UA) AUTO NEGATIVE (NEGATIVE); KETONE, URINE AUTO NEGATIVE (NEGATIVE); LEUKOCYTE ESTERASE, URINE AUTO 3+ (NEGATIVE); NITRITE, URINE AUTO NEGATIVE (NEGATIVE); PROTEIN, URINE AUTO 1+ mg/dL (NEGATIVE); RBC, URINE AUTO 11 /HPF (0-3); SPECIFIC GRAVITY URINE AUTO 1.004 (1.002-1.035); SQUAMOUS EPITHELIAL CELL UR AU 7 /HPF (0-6); UROBILINOGEN, URINE AUTO 0.2 mg/dL (0.0-2.0); WBC, URINE AUTO TNTC /HPF (0-3)
== END ==
LOC: M SMT 13:04
PROVIDERS: ATTEND Physician Assistant
DX: R30.0 Dysuria (principal)

== ENCOUNTER 2024-10-12 08:33 | Day surgery (SDC) | payer MEDICARE, OTHER ==
[~2024-10-12] VITALS: Ht 157.5 cm; Wt 57.2 kg
[~2024-10-12 08:33] MED LIST changes: -IBUP-1022 PO; +IBUP600T42 PO
[2024-10-12] MEDS ORDERED: LIDOCAINE 2% 100 MG/5 ML SDV (FOR ANES.) As Ordered ONE (08:39)
[2024-10-12] MEDS ORDERED: ONDANSETRON 4MG 2ML VIAL As Ordered ONE (09:45)
[2024-10-12 09:54] VITALS: TEMP 97.6
[2024-10-12 10:13] VITALS: BP 189/79; O2SAT 95
== END 2024-10-12 10:20 | disposition home or self-care (01) ==
LOC: M OPP 08:33
PROVIDERS: ATTEND Internal Medicine Gastroenterology
DX: K44.9 Diaphragmatic hernia without obstruction or gangrene (principal); K22.89 Other specified disease of esophagus; R13.10 Dysphagia, unspecified; Z88.1 Allergy status to other antibiotic agents; Z88.2 Allergy status to sulfonamides; Z88.8 Allergy status to other drugs, medicaments and biological substances; Z79.82 Long term (current) use of aspirin; Z79.51 Long term (current) use of inhaled steroids; Z79.899 Other long term (current) drug therapy; J44.9 Chronic obstructive pulmonary disease, unspecified; Z87.891 Personal history of nicotine dependence
CPT/HCPCS: 43235; J2405

== ENCOUNTER → 2024-10-17 | Outpatient (REF) | payer MEDICARE, OTHER | LOC: M LAB REF 17:09 | PROVIDERS: ATTEND Physician Assistant | DX: R30.0 Dysuria (principal) ==

== ENCOUNTER → 2024-11-11 | Outpatient (REF) | payer MEDICARE, OTHER ==
[2024-11-11 16:14] LABS: APPEARANCE, URINE HAZY (CLEAR); BACTERIA, URINE AUTO 1+ (NEGATIVE); BILIRUBIN, URINE AUTO NEGATIVE (NEGATIVE); BLOOD, URINE BLOOD NEGATIVE (NEGATIVE); GLUCOSE, URINE (UA) AUTO NEGATIVE (NEGATIVE); KETONE, URINE AUTO NEGATIVE (NEGATIVE); LEUKOCYTE ESTERASE, URINE AUTO 2+ (NEGATIVE); NITRITE, URINE AUTO NEGATIVE (NEGATIVE); PROTEIN, URINE AUTO NEGATIVE (NEGATIVE); RBC, URINE AUTO 2 /HPF (0-3); SPECIFIC GRAVITY URINE AUTO 1.005 (1.002-1.035); SQUAMOUS EPITHELIAL CELL UR AU 7 /HPF (0-6); TRANSITIONAL EPITHELIAL AUTO 1 /HPF; UROBILINOGEN, URINE AUTO 0.2 mg/dL (0.0-2.0); WBC, URINE AUTO 4 /HPF (0-3)
== END ==
LOC: M SMT 15:17
PROVIDERS: ATTEND Physician Assistant
DX: R39.9 Unspecified symptoms and signs involving the genitourinary system (principal)

== ENCOUNTER → 2024-11-25 | Outpatient (CLI) | payer MEDICARE, OTHER | LOC: M ADAMS 15:13 | PROVIDERS: ATTEND Family Medicine | DX: R06.09 Other forms of dyspnea (principal) ==

== ENCOUNTER → 2024-11-25 | Outpatient (REF) | payer MEDICARE, OTHER ==
[2024-11-25 19:08] LABS: PLATELET COUNT, AUTOMATED 303 10^3/uL (150-450)
[2024-11-25 19:41] LABS: ALT/SGPT 15.0 U/L (7.0-40); AST/SGOT 21.0 U/L (<34); CALCIUM LEVEL 9.3 MG/DL (8.3-10.6); CARBON DIOXIDE LEVEL 31.0 MMOL/L (20-31); CHLORIDE LEVEL 98.0 MMOL/L (98-107); CHOLESTEROL LEVEL 188.0 MG/DL (<200); CHOLESTEROL RISK RATIO 2.3 (<5); CREATININE FOR GFR 0.61 MG/DL (0.55-1.30); GLOMERULAR FILTRATION RATE 85.9 (>32); LDL CHOLESTEROL 95.7 MG/DL (<100); NON-HDL-C 106.3 MG/DL; POTASSIUM SERUM 4.4 MMOL/L (3.5-5.1); SODIUM LEVEL 137.0 MMOL/L (136-145); TRIGLYCERIDES LEVEL 53.0 MG/DL (<150)
[2024-11-25 19:44] LABS: FREE T4 1.24 NG/DL (0.89-1.76)
== END ==
LOC: M SFHCADAM 14:50
PROVIDERS: ATTEND Family Medicine
DX: R06.09 Other forms of dyspnea (principal); I11.9 Hypertensive heart disease without heart failure; E78.2 Mixed hyperlipidemia

== ENCOUNTER 2024-11-30 11:05 | Emergency (ER) | payer MEDICARE, OTHER ==
[~2024-11-30] VITALS: Ht 157.5 cm; Wt 56.3 kg
[2024-11-30 11:56] LABS: BASO # 0.0 10^3/uL (0.0-0.2); BASO % 0.5 % (0.0-1.0); EOS # 0.0 10^3/uL (0.0-0.5); EOS % 0.2 % (0.0-3.0); LYMPH # 0.8 10^3/uL (1.5-5.0); LYMPH % 9.8 % (24.0-44.0); MONO # 0.6 10^3/uL (0.0-0.8); MONO % 7.6 % (2.0-8.0); NEUTROPHILS # 6.7 10^3/uL (1.5-8.5); NEUTROPHILS % 81.4 % (36.0-66.0); PLATELET COUNT, AUTOMATED 287 10^3/uL (150-450)
[2024-11-30 12:29] LABS: CK-MB VALUE MASS 5.4 NG/ML (<3.6)
[2024-11-30 12:30] LABS: ALT/SGPT 14.0 U/L (7.0-40); AST/SGOT 21.0 U/L (<34)
[2024-11-30 12:38] LABS: CPK CREATINE PHOSPHOKINASE 113.0 U/L (34-145); MB/CK RELATIVE INDEX 4.77 (< OR =4)
[2024-11-30] MEDS ORDERED: ISOVUE-370 76% 100 ML VIAL As Ordered ONE (12:50)
[2024-11-30 13:01] LABS: KETONE, URINE AUTO RFX TRACE mg/dL (NEGATIVE); NITRITE, URINE AUTO RFX NEGATIVE (NEGATIVE); RBC, URINE AUTO RFX 6 /HPF (0-3); SQUAM EPITHELIAL CELL UR AURFX 4 /HPF (0-6)
[2024-11-30 13:36] LABS: LEUKOCYTE ESTERASE UR AUTO RFX 3+ (NEGATIVE); WBC, URINE AUTO RFX 34 /HPF (0-3)
[2024-11-30 14:05] VITALS: BP 169/80; TEMP 96.8; O2SAT 95
[2024-11-30] MEDS ORDERED: ONDA-282 PO (14:05)
[2024-11-30] MEDS ORDERED: CEPH500C PO (14:05)
== END 2024-11-30 14:27 | disposition home or self-care (01) ==
LOC: M ED 11:05
DX: N39.0 Urinary tract infection, site not specified (principal); I25.2 Old myocardial infarction; I10 Essential (primary) hypertension; J44.9 Chronic obstructive pulmonary disease, unspecified; Z88.1 Allergy status to other antibiotic agents; Z88.2 Allergy status to sulfonamides; Z88.8 Allergy status to other drugs, medicaments and biological substances; Z79.1 Long term (current) use of non-steroidal anti-inflammatories (NSAID); Z79.2 Long term (current) use of antibiotics; Z79.899 Other long term (current) drug therapy; Z79.810 Long term (current) use of selective estrogen receptor modulators (SERMs)
CPT/HCPCS: 36415; 74177; 80047; 80076; 81001; 82550; 82553; 83605; 83690; 84484; 85025; 87086; 93005; 93041; 94760; 99285; Q9967

== ENCOUNTER → 2024-12-15 | Outpatient (REF) | payer MEDICARE, OTHER ==
[2024-12-15 14:15] LABS: APPEARANCE, URINE CLEAR (CLEAR); BACTERIA, URINE AUTO 1+ (NEGATIVE); BILIRUBIN, URINE AUTO NEGATIVE (NEGATIVE); BLOOD, URINE BLOOD NEGATIVE (NEGATIVE); GLUCOSE, URINE (UA) AUTO NEGATIVE (NEGATIVE); KETONE, URINE AUTO NEGATIVE (NEGATIVE); LEUKOCYTE ESTERASE, URINE AUTO 3+ (NEGATIVE); MUCUS, URINE SMALL (NEGATIVE); NITRITE, URINE AUTO NEGATIVE (NEGATIVE); PROTEIN, URINE AUTO NEGATIVE (NEGATIVE); RBC, URINE AUTO 0 /HPF (0-3); SPECIFIC GRAVITY URINE AUTO 1.004 (1.002-1.035); SQUAMOUS EPITHELIAL CELL UR AU 3 /HPF (0-6); UROBILINOGEN, URINE AUTO 0.2 mg/dL (0.0-2.0); WBC, URINE AUTO 7 /HPF (0-3)
== END ==
LOC: M SMT 13:01
PROVIDERS: ATTEND Nurse Practitioner Family
DX: N39.0 Urinary tract infection, site not specified (principal)

== ENCOUNTER → 2025-01-01 | Outpatient (REF) | payer MEDICARE, OTHER ==
[2025-01-01 13:22] LABS: APPEARANCE, URINE CLEAR (CLEAR); BACTERIA, URINE AUTO 1+ (NEGATIVE); BILIRUBIN, URINE AUTO NEGATIVE (NEGATIVE); BLOOD, URINE BLOOD NEGATIVE (NEGATIVE); GLUCOSE, URINE (UA) AUTO NEGATIVE (NEGATIVE); KETONE, URINE AUTO NEGATIVE (NEGATIVE); LEUKOCYTE ESTERASE, URINE AUTO 2+ (NEGATIVE); NITRITE, URINE AUTO NEGATIVE (NEGATIVE); PROTEIN, URINE AUTO NEGATIVE (NEGATIVE); RBC, URINE AUTO 1 /HPF (0-3); SPECIFIC GRAVITY URINE AUTO 1.005 (1.002-1.035); SQUAMOUS EPITHELIAL CELL UR AU 4 /HPF (0-6); TRANSITIONAL EPITHELIAL AUTO 1 /HPF; UROBILINOGEN, URINE AUTO 0.2 mg/dL (0.0-2.0); WBC, URINE AUTO 12 /HPF (0-3)
== END ==
LOC: M SMT 12:47
PROVIDERS: ATTEND Urology
DX: N39.0 Urinary tract infection, site not specified (principal)

== ENCOUNTER → 2025-02-05 | Outpatient (REF) | payer MEDICARE, OTHER ==
[~2025-02-05] MED LIST changes: -FISH10005 PO; +FISH1CAP38 PO
[2025-02-05 14:02] LABS: APPEARANCE, URINE CLEAR (CLEAR); BACTERIA, URINE AUTO 2+ (NEGATIVE); BILIRUBIN, URINE AUTO NEGATIVE (NEGATIVE); BLOOD, URINE BLOOD NEGATIVE (NEGATIVE); GLUCOSE, URINE (UA) AUTO NEGATIVE (NEGATIVE); KETONE, URINE AUTO NEGATIVE (NEGATIVE); LEUKOCYTE ESTERASE, URINE AUTO TRACE (NEGATIVE); MUCUS, URINE SMALL (NEGATIVE); NITRITE, URINE AUTO POSITIVE (NEGATIVE); PROTEIN, URINE AUTO NEGATIVE (NEGATIVE); RBC, URINE AUTO 1 /HPF (0-3); SPECIFIC GRAVITY URINE AUTO 1.004 (1.002-1.035); SQUAMOUS EPITHELIAL CELL UR AU 0 /HPF (0-6); UROBILINOGEN, URINE AUTO 0.2 mg/dL (0.0-2.0); WBC, URINE AUTO 2 /HPF (0-3)
== END ==
LOC: M SMT 12:31
PROVIDERS: ATTEND Urology
DX: Z87.440 Personal history of urinary (tract) infections (principal); Z79.899 Other long term (current) drug therapy